=== PATIENT | male | born 1950 | race Caucasian/White ===

== ENCOUNTER 2025-02-09 22:34 | Inpatient (IN) | payer OTHER, SELFPAY ==
[2025-02-09 20:31] VITALS: BP 145/95
[2025-02-09 20:33] VITALS: BP 145/95
[2025-02-09 20:47] VITALS: BP 146/91
[2025-02-09 20:51] LABS: Hematocrit 43.5 % (39.0-52.0); Hemoglobin 15.3 g/dL (13.0-18.0); Mean Corp Hgb Conc. 35.2 g/dL (33.0-37.0); Mean Corpuscular Volume 87.7 fL (80.0-94.0); Nucleated Red Blood Cells % 0 % (-); Platelet Count 473 10^3/uL (130-400); Red Cell Dist. Width 12.9 % (11.5-14.5)
--- NOTE | 2025-02-09 20:52 | ED.GENMED ---
History of Present Illness
General
Chief Complaint: Breathing Problem
Time Seen by Provider: 02/09/25 20:32
History of Present Illness
History of Present Illness:
75-year-old male with history of CAD status post CABG in 2012, hypertension, and vfa-czbbfcp-kcvuhwimg diabetes presents to the emergency department for evaluation of increasing shortness of breath and coughing for the past week. He saw his primary
care team at [facility] on Monday and was given prescriptions for azithromycin and cefpodoxime and was scheduled for an outpatient ultrasound next week. Feels that his symptoms are improving however today he has had numerous bouts of forceful coughing
or difficulty breathing with resultant syncopal events. According to his he has had a witnessed syncope on 4 occasions today. He has no primary history of pulmonary disease.
Past History
Past History
ED Past Medical History: HTN and NIDDM
ED Past Surgical History: None
Social History
Tobacco: Non-smoker
Alcohol: Occasional
Drug: None
Personal:
Living: with family
Employment: Employed
Family History
Family History: Other (Noncontributory)
Review of Systems
Review of Systems
Allergies reviewed?: Yes
All Other Systems: ROS reviewed and negative except as documented in HPI and ROS
Phy Exam
Physical Exam
Physical Exam:
GEN: Acute respiratory distress
HEENT: Oral mucosa moist, no scleral icterus, oropharynx clear
Cardiac: Mildly tachycardic, regular
Lung: Tachypneic with accessory muscle use, audible stridor, lungs globally clear otherwise
MSK: No gross deformity or injuries
Skin: Good color, no pallor or jaundice, no rashes
Neuro: AO x3, moves all extremities freely
Psych: Calm, cooperative
Scores
Heart Failure Risk
Heart Failure Risk Score: Not Applicable
Course
Orders/Labs/Results
Orders:
Orders
02/09/25 20:36
Electrocardiogram (*1) Urgent
Reason for Study: Other
Other Reason for Exam: Respiratory Distress
EKG- Treatment ONCE
02/09/25 20:40
Complete Blood Count/With Diff Urgent
Comprehensive Metabolic Panel Urgent
Troponin I Urgent
02/09/25 20:51
Racepinephrine [Vaponefrin Nebs] 0.5 ml INH R NOW STA
CR Chest - 2 Views Urgent
Comment:
Reason For Exam: SOB
02/09/25 22:19
Admit/Transfer Patient As Directed
Co-Sign Provider:
Level of Care: Inpatient admission
Assign to:: Telemetry
Physician / Group: Bird
Diagnosis: Large pleural effusion
Reason for Telemetry: Syncope
Date to Stop Telemetry: 02/11/25
Time to Stop Telemetry: 11:00
Reason for Hospitalization: shortness of breath
Expected length of stay greater than two midnights?: Yes
ELOS- Estimated Length of Stay in days: 2
I certify the patient meets the requirements for IP care: Yes
PRN Pain Medication Management As Directed
May give lesser potent ordered pain med per pt: Yes
preference::
Protocol:: Medication orders for pain may be administered in a
manner that supports deferring to patient preference
when the pt is:
- Requesting an ordered lesser potent pain medication.
Least to most potent pain medications are defined
as: acetaminophen < NSAID < tramadol < opioids
(morphine, oxycodone, hydromorphone).
- Requesting a lesser dose of the same medication IF
ORDERED.
- Requesting a less intrusive route of administration
if both routes are prescribed by the provider (PO <
IV).
02/09/25 22:21
Code Status As Directed
Resuscitation Status: Full Code
02/11/25 11:00
DC Protocol for Telemetry ONCE
Abnormal Lab Results
02/09/25
20:40
WBC 13.1 H 10^3/uL
(4.8-10.8)
Plt Count 473 H 10^3/uL
(130-400)
MPV 10.7 H fL
(7.4-10.4)
Abs Immat Gran (auto) 0.1 H 10^3/uL
(0-0.05)
Absolute Neuts (auto) 9.7 H 10^3/uL
(1.4-6.5)
Absolute Monos (auto) 1.9 H 10^3/uL
(0.1-0.6)
Immature Gran % 1.1 H %
(0-0.5)
Lymphocytes % 9.3 L %
(20.5-51.1)
Monocytes % 14.6 H %
(1.7-9.3)
Sodium 129 L mmol/L
(135-145)
Chloride 96 L mmol/L
(98-107)
BUN 28 H mg/dl
(9-20)
Glucose 215 H mg/dl
(70-99)
02/09/25 20:40
02/09/25 20:40
Vital Signs
Initial and Last Documented VS:
Initial Vital Signs
Temp Pulse Resp BP Pulse Ox
98.2 F 98 20 145/95 96
02/09/25 20:31 02/09/25 20:31 02/09/25 20:31 02/09/25 20:31 02/09/25 20:31
Last Documented Vital Signs
Temp Pulse Resp BP Pulse Ox
98.2 F 90 26 100/63 96
02/09/25 20:31 02/09/25 23:15 02/09/25 23:15 02/09/25 23:00 02/09/25 23:15
MDM/Problems Addressed
MDM/Problems Addressed:
Initially with the presence of audible stridor the patient was given racemic epinephrine nebulizer with provided essentially no benefit. Chest x-ray ultimately revealed large left pleural effusion with mediastinal shift. Imaging was reviewed with
interventional radiology on-call and the plan will be to perform thoracentesis first thing tomorrow morning. Patient is not hypoxic but did benefit from supplemental oxygen on a symptomatic basis. Hemodynamically stable. Will be admitted to the
hospitalist service
*Pulse Oximetry
SaO2: 96
Oxygen Mode of Delivery: Room air
Patient hypoxic: no
*Critical Care Note
Total Time (30-74mins, 75-104mins- exclusive of procedures): Not Applicable
ED Attending Note
-
Portions of this chart may have been created with voice recognition software.� Occasional wrong word or��sound alike� substitutions may have occurred due to the inherent limitations of voice recognition software.
Discharge Plan
Departure
Patient Disposition: Admit
Date of Disposition: 02/09/25
Time of Disposition: 21:42
Admit to: Med/Surg
Presentation/result/management discussed w/ accepting MD/DO: Hospitalist
Discharge Problem:
Pleural effusion on left
Interventions
Interventions:
*Risk Screen - Suicide Last Done: 02/09/25 20:37
*General Assessment Last Done: 02/09/25 20:38
*Neglect/Abuse Screening Last Done: 02/09/25 20:37
*ED- Fall Risk Assessment Last Done: 02/09/25 20:37
*ED COVID-19 Vaccine History Last Done: 02/09/25 20:37
*ED Influenza Vaccine History Last Done: 02/09/25 20:37
ED- Cardiac Assessment Last Done: 02/09/25 20:43
ED- Pulmonary Assessment Last Done: 02/09/25 20:43
[2025-02-09] MEDS: VAPONEFRIN NEBS 0.5 ML INH (20:55)
[2025-02-09 21:00] VITALS: BP 123/78
[2025-02-09 21:07] LABS: ALT (SGPT) 42 U/L (0-50); AST (SGOT) 35 U/L (17-59); Albumin 4.0 g/dl (3.5-5.0); Alkaline Phosphatase 57 U/L (38-126); Blood Urea Nitrogen 28 mg/dl (9-20); Calcium 9.6 mg/dl (8.4-10.2); Carbon Dioxide 22 mmol/L (22-30); Chloride 96 mmol/L (98-107); Estimated Creatinine Clearance 65 ml/min; Glucose 215 mg/dl (70-99); Potassium 4.0 mmol/L (3.5-5.1); Sodium 129 mmol/L (135-145); Total Protein 6.7 g/dl (6.3-8.2); eGFR > 60.00
[2025-02-09 21:16] LABS: Troponin I 0.029 ng/ml
[2025-02-09 22:00] VITALS: BP 111/76
--- NOTE | 2025-02-09 22:11 | HPS.HSE ---
Family Physician
-
Family Physician: Elvia Zuniga
Chief Complaint
-
Shortness of breath
History of Present Illness
This is a 75-year-old male with past medical history significant for CAD status post CABG, status post tenting, gys-hpooplq-sslbrjwiv diabetes, history of prostate cancer status post resection and XRT, history of for remote soft tissue cancer of the
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
Patient reports about 10 days of upper respiratory symptoms including a cough and cold and flulike symptoms. He did have his flu shot. He reported that he was doing well but he started progressively getting dyspneic. He reports he has cough
paroxetine which resulted in severe shortness of breath and inability to catch his breath. He is not bringing up much sputum. He has not had any fevers or chills. He denies any known sick contacts. He has no recent travels. Was seen by PMD at
the [facility] on Monday and was started on cefpodoxime and azithromycin with x-ray pending. Today he had severe shortness of breath and almost a presyncopal episode and was brought to the emergency department.
In the emergency department was afebrile, blood pressure was 120/78 with a pulse of 93 and was initially tachypneic to 37 now in the low 20s on oxygen. Oxygen saturation was initially 97% on room air. Chest x-ray shows a large left-sided pleural
effusion with almost complete whiteout. Troponin was 0.029. ECG was nonischemic. He had a white count of 13.1 hemoglobin and platelets were normal. Electrolytes notable for a sodium of 129 but otherwise unremarkable with normal BUN and
creatinine.
Medical History
Past Medical History
Past Medical History: Reports CAD (CAD status post triple-vessel CABG in 2012, history of stent placement), Cancer (History of prostate cancer status post XRT and resection, history of soft tissue cancer of the back in the 80s status post
resection), HTN, Hypercholesterolemia and NIDDM
Past Surgical History: Reports Cardiac (CABG) and Urological (Prostatectomy)
Social History
Tobacco: Former Smoker
Alcohol: None
Drug: None
Personal:
Living: With Family
Family History
Family History: Not pertinent
Allergies / Home Medications
Allergies reflects when Allergies were last updated in [facility].
Home Medications with original date entered in [facility]
Allergy/Medication List:
Allergies
Allergy/AdvReac Type Severity Reaction Status Date / Time
metoprolol Allergy sob and Verified 02/09/25 20:38
chest
vibrating
Home Medications
aspirin 81 mg tablet,delayed release 81 mg PO DAILY ##1 12/27/17
coenzyme Q10 200 mg capsule (Co Q-10) 200 mg PO DAILY 12/27/17
nitroglycerin 0.4 mg sublingual tablet 0.4 mg sublingual [id number] PRN chest pain ##0 12/27/17
omega 5-ztz-env-fish oil 300 mg-1,000 mg capsule (Fish Oil) 1 ea PO DAILY 12/27/17
potassium chloride 10 mEq tablet,extended release 40 meq PO DAILY 09/13/19
amlodipine 10 mg tablet 5 mg PO DAILY 01/03/23
losartan 100 mg tablet 100 mg PO DAILY 01/03/23
magnesium 250 mg tablet 250 mg PO DAILY 01/03/23
omeprazole 40 mg capsule,delayed release 40 mg PO BID 01/03/23
oxybutynin chloride 10 mg tablet,extended release 24 hr 10 mg PO BID 01/03/23
travoprost 0.004 % eye drops 1 drp BOTH EYES QPM 01/03/23
azithromycin 250 mg tablet 250 mg PO DAILY 02/09/25
cefpodoxime 200 mg tablet 200 mg PO BID 02/09/25
hydrochlorothiazide 25 mg tablet 25 mg PO DAILY 02/09/25
metformin 500 mg tablet,extended release 24hr (osmotic) 500 mg PO BID 02/09/25
rosuvastatin 5 mg tablet 2.5 mg PO DAILY 02/09/25
Review of Systems
-
Constitutional: Denies Fever or Chills
EENT: Reports No Symptoms
Respiratory: Reports Cough and Trouble Breathing
Cardiac: Denies Chest Pain, Diaphoresis or Palpitations
Abdomen/GI: Reports No Symptoms
: Reports No Symptoms
Musculoskeletal: Denies Edema
Skin: Reports No Symptoms
Neurological: Reports No Symptoms
Endocrine: Reports No Symptoms
Hematologic/Lymphatic: Reports No Symptoms
Psych: Reports No Symptoms
Physical Exam
Vital Signs
Vital Signs
Temp Pulse Resp BP Pulse Ox
98.2 F 93 37 123/78 97
02/09/25 20:31 02/09/25 21:30 02/09/25 21:30 02/09/25 21:00 02/09/25 21:37
Physical Exam
General: Well Developed, Well Nourished and No Apparent Distress
HEENT: NormoCephalic, Moist mucous membranes and Atraumatic
Respiratory: Non Labored Respirations and Decreased Breath Sounds
Cardiac: S1/S2 and Regular Rhythm; No Murmur or Rub
GI: Soft, Non Tender, Non Distended and Normal Bowel Sounds; No Organomegaly
Rectal: Deferred by Provider
Genito-urinary: Deferred by me
Musculoskeletal: No Clubbing, No Cyanosis and No Edema
Skin: No Rash
Neuro: AO x 3 and Nonfocal/grossly intact
Hematologic/Lymphatic: No Lymphadenopathy
Laboratory Results
-
02/09/25 20:40
02/09/25 20:40
Laboratory Results
Total Bilirubin 0.9 mg/dl (0.2-1.3) 02/09/25 20:40
AST 35 U/L (17-59) 02/09/25 20:40
ALT 42 U/L (0-50) 02/09/25 20:40
Alkaline Phosphatase 57 U/L (38-126) 02/09/25 20:40
Troponin I 0.029 ng/ml 02/09/25 20:40
Data Reviewed
-
Diagnostic Radiology: Image Personally Visualized and interpreted and Report Reviewed by me
Lab Data: Labs Reviewed by me
Old Records: Reviewed
Impression/Plan
-
IMPRESSION:
75-year-old with past medical history of CAD status post CABG, no history of CHF or liver disease presents to the emergency department with worsening shortness of breath in the setting of her recent cough and upper respiratory symptoms and found to
have a large left sided pleural effusion with light midline shift. He is hemodynamically stable and afebrile. Does have leukocytosis. He is maintaining oxygen saturation of 98% without markedly increased work of breathing. Sodium 129. Troponin
is 0.029. Patient is without any chest pain and shows no other signs of volume overload. No consolidation on the right lung.
PLAN:
Left-sided pleural effusion -shortness of breath likely explained by this effusion which could be parapneumonic versus malignant or transudative.
-Admit to telemetry for now
-Continue oxygen supplementation
-Will continue antibiotics for now
-IR consulted and notified, left paracentesis tomorrow morning
-Pulmonary consultation
-Will continue with supportive measures including antitussives and antiemetics.
Hyponatremia - Appears euvolemic at this time.
- paracentesis as above
- fluid restriction
- urine studies
CAD -no chest pain, troponin 0.029. Complains of some presyncopal episodes with cough paroxysms. No loss of consciousness.
�Telemetry
� Continue aspirin, statin,
� Continue his usual BP meds including amlodipine and hydrochlorothiazide.
Diabetes
- Continue his metformin twice daily
� Sliding scale insulin
DVT prophylaxis�Lovenox subcu
CODE STATUS�full code
[2025-02-09 23:00] VITALS: BP 100/63
[2025-02-10] VITALS (12 sets, daily range): BP systolic 76–163; BP diastolic 72–97; PULSE 77–83; BMI 28.5
--- NOTE | 2025-02-10 02:38 | PTCARENOTE ---
Pt transported from ED to 3W via stretcher. Pt standby from stretcher to bed. Pt AAOX3, vitals WNL, pt placed on TELE #[id number], on 2L of O2. Oriented to room and call bear within reach.
[2025-02-10] MEDS: STERILE WATER FOR INJECTION 10 ML IV (05:01)
[2025-02-10] MEDS: ROCEPHIN 1000 MG IV (05:01)
[2025-02-10 07:06] LABS: Hematocrit 40.8 % (39.0-52.0); Hemoglobin 14.8 g/dL (13.0-18.0); Mean Corp Hgb Conc. 36.3 g/dL (33.0-37.0); Mean Corpuscular Volume 85.2 fL (80.0-94.0); Platelet Count 483 10^3/uL (130-400); Red Cell Dist. Width 12.7 % (11.5-14.5)
[2025-02-10 07:10] LABS: Blood Urea Nitrogen 26 mg/dl (9-20); Calcium 9.8 mg/dl (8.4-10.2); Carbon Dioxide 20 mmol/L (22-30); Chloride 101 mmol/L (98-107); Estimated Creatinine Clearance 63 ml/min; Glucose 178 mg/dl (70-99); LDH 188 U/L (120-246); Magnesium 2.2 mg/dl (1.6-2.3); Potassium 4.0 mmol/L (3.5-5.1); Sodium 128 mmol/L (135-145); Total Protein 6.6 g/dl (6.3-8.2); eGFR > 60.00
[2025-02-10 08:11] LABS: Glucose - Point of Care 166 mg/dl (70-99)
[2025-02-10] MEDS: NOVOLOG FLEXPEN-LOW RESISTANCE 1 UNITS SC ×3 (09:00→17:12)
[2025-02-10] MEDS: ORETIC 25 MG PO (09:01)
[2025-02-10] MEDS: ZITHROMAX 250 MG PO (09:11)
[2025-02-10] MEDS: CRESTOR 2.5 MG PO (09:11)
[2025-02-10] MEDS: KCL 40 MEQ PO (09:11)
[2025-02-10] MEDS: GLUCOPHAGE XR EXTENDED RELEASE 500 MG PO ×2 (09:12→17:13)
[2025-02-10] MEDS: ASPIR LOW (ENTERIC COATED) 81 MG PO (09:12)
[2025-02-10] MEDS: COZAAR 100 MG PO (09:12)
[2025-02-10] MEDS: PROTONIX 40 MG PO ×2 (09:12→20:52)
[2025-02-10] MEDS: NORVASC 5 MG PO (09:12)
--- NOTE | 2025-02-10 10:08 | CON.PUL ---
Consultation
Consultation Request
Date/Time Consultation Requested: 02/10/25
Date/Time Consultation Performed: 02/10/25
Performing Provider: Forrest
Reason for Consultation: SOB
Medical History
-
History of Present Illness:
This is a 75-year-old male with past medical history significant for CAD status post CABG, status post tenting, oex-tbojmpc-phonpwqdo diabetes, history of prostate cancer status post resection and XRT, history of for remote soft tissue cancer of the
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
In the emergency department was afebrile, blood pressure was 120/78 with a pulse of 93 and was initially tachypneic to 37 now in the low 20s on oxygen. Oxygen saturation was initially 97% on room air. Chest x-ray shows a large left-sided pleural
effusion with almost complete whiteout. Troponin was 0.029. ECG was nonischemic. He had a white count of 13.1 hemoglobin and platelets were normal. Electrolytes notable for a sodium of 129 but otherwise unremarkable with normal BUN and
creatinine.
Denies prior history of lung disease, was a former smoker overall 10 years, quit in the 1970s. He was exposed to agent orange in the past. He denies any family history of lung disease.
Past Medical History
Past Medical History: Other (see list below)
Social History
Tobacco: Former Smoker
Alcohol: None
Drug: None
Allergies / Home Medications
Allergies
Allergy/AdvReac Type Severity Reaction Status Date / Time
metoprolol Allergy sob and Verified 02/09/25 20:38
chest
vibrating
Home Medications
�Medication �Instructions �Recorded �Confirmed �Last Taken �Type
aspirin 81 mg tablet,delayed 81 mg PO DAILY ##1 12/27/17 02/09/25 01/03/23 06:00 Rx
release
coenzyme Q10 200 mg capsule (Co 200 mg PO DAILY 12/27/17 02/09/25 01/03/23 06:00 History
Q-10)
nitroglycerin 0.4 mg sublingual 0.4 mg sublingual [id number] PRN 12/27/17 02/09/25 02/09/25 Rx
tablet chest pain ##0
omega 7-adr-trp-fish oil 300 1 ea PO DAILY 12/27/17 02/09/25 01/03/23 06:00 History
mg-1,000 mg capsule (Fish Oil)
potassium chloride 10 mEq 40 meq PO DAILY 09/13/19 02/09/25 01/03/23 06:00 History
tablet,extended release
amlodipine 10 mg tablet 5 mg PO DAILY 01/03/23 02/09/25 01/03/23 06:00 History
losartan 100 mg tablet 100 mg PO DAILY 01/03/23 02/09/25 01/03/23 06:00 History
magnesium 250 mg tablet 250 mg PO DAILY 01/03/23 02/09/25 01/03/23 06:00 History
omeprazole 40 mg capsule,delayed 40 mg PO BID 01/03/23 02/09/25 01/03/23 06:00 History
release
oxybutynin chloride 10 mg 10 mg PO BID 01/03/23 02/09/25 01/02/23 22:00 History
tablet,extended release 24 hr
travoprost 0.004 % eye drops 1 drp BOTH EYES QPM 01/03/23 02/09/25 01/02/23 22:00 History
azithromycin 250 mg tablet 250 mg PO DAILY 02/09/25 02/09/25 Unknown History
cefpodoxime 200 mg tablet 200 mg PO BID 02/09/25 02/09/25 Unknown History
hydrochlorothiazide 25 mg tablet 25 mg PO DAILY 02/09/25 02/09/25 Unknown History
metformin 500 mg tablet,extended 500 mg PO BID 02/09/25 02/09/25 Unknown History
release 24hr (osmotic)
rosuvastatin 5 mg tablet 2.5 mg PO DAILY 02/09/25 02/09/25 Unknown History
Review of Systems
-
History Source: Patient
All other systems: Negative unless noted
Vitals / Labs / Diagnostic Testing
Vital Signs
Temp Pulse Resp BP Pulse Ox
98.0 F 87 19 116/80 97
02/10/25 07:00 02/10/25 09:01 02/10/25 07:00 02/10/25 09:12 02/10/25 07:00
Lab Data
02/10/25 06:19
02/10/25 06:19
Diagnostic Testing:
Physical Exam
-
HEENT: Normocephalic, Anicteric and Moist Mucous Membranes
Cardiovascular: S1/S2 and Regular Rhythm
Respiratory: Clear (decreased on L) and Non-Labored Respirations
GI: Soft, Non Distended and Non Tender
Neurology: Awake, Alert, Oriented and No Motor Deficits
Skin: Warm, Dry and Good Color
General: Comfortable and Other (NAD)
Assessment
-
This is a 75-year-old male with past medical history significant for CAD status post CABG, status post tenting, wzd-lfdcvoq-tekognfcq diabetes, history of prostate cancer status post resection and XRT, history of for remote soft tissue cancer of the
back status post resection in the , hyperlipidemia, GERD, TIA who presents to the emergency department with worsening shortness of breath.
Chest x-ray shows a large left-sided pleural effusion with almost complete whiteout. Denies prior history of lung disease, was a former smoker overall 10 years, quit in the 1970s. He was exposed to agent orange in the past. We are consulted for
evaluation
New left sided pleural effusion with near-complete atelectasis status post thoracentesis 02/10/2025
SOB
Hyponatremia
Presyncopal episode
Leukocytosis, mild
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
CAD status post triple-vessel CABG in 2012, history of stent placement
History of prostate cancer status post XRT and resection/Prostatectomy
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
HTN
Hypercholesterolemia
NIDDM
Former smoker
Kidney stones
Plan
Currently saturating greater than 90% on room air
No known prior history of home O2 use
Denies prior history of lung disease, was a former smoker but overall 10 years, quit in the 1970s
Had exposure to agent orange in the past, denies family history of lung disease
CXR/CT obtained indicating near complete whiteout left side, pleural effusion which is new
Other imaging reviewed in past did not demonstrate effusion present
Status post thoracentesis, awaiting chemistry, culture and cytology results
Denies any prodrome symptoms of infection including fever chills, malaise at home
He does have occasional difficulty with swallowing, was placed on PPI for reflux
Will obtain speech evaluation to rule out aspiration
Prior ECHO results are reviewed indicating stable findings
proBNP on admission negative
Smoking history noted--distant past
Would not be considered high risk for underlying lung cancer, cytology is sent
Has a history of LEXY on CPAP, can resume while inpatient
Will need outpatient pulmonary evaluation in our office for PFTs and 6MWT
Reviewed with patient
We will follow
Diagnostic Data
Chest X-Ray: 02/09/25- Near complete opacification of the left hemithorax, which appears to be secondary to large volume pleural fluid. A small portion of the left upper lobe remains aerated. No pneumothorax. Sternotomy wires and a loop recorder in
the left chest wall. The cardiac silhouette is partially obscured. Mild mediastinal shift to the right. Chronic degenerative changes of the spine.
09/03/15- No acute process.
CT Scan:
Echo: 05/16/16- Normal left ventricular size and systolic function. Estimated ejection fraction is 55-60%. No significant valvular disease. No prior study available for comparison.
[facility] 01/03/23- 1. The left internal mammary graft to the mid LAD is widely patent with excellent runoff. 2. The saphenous vein graft to OM 2 and OM 3 is widely patent with excellent runoff at both touchdown sites.
PFT's: Jose 2013- FVC is 3.64L or 81% of predicted. FEV1 is 2.90L or 86% of predicted. FEV1/FVC of 80%. FEF 25-75 percent is 2.85L/s or 105% of predicted --normal
Reports and relevant images were personally reviewed.
Total time spent on this consultation __55__ minutes which includes review of history, physical exam, medications, laboratory data, personal review of imaging, extensive review of outpatient records, discussion with care team and respiratory therapy.
--- NOTE | 2025-02-10 11:16 | CM ---
Patient seen at bedside on . Patient states that he lives with his in a 2 story home. Patient has a CPAP and no other DME. Patient uses the [facility] in [place] on if short term perscription needed. Patient PCP is [place] Doctor "Lisbeth"Efrain and he plans for discharge home with no needs. Patient currently on O2 and for procedure today. CM will continue to follow for discharge planning needs.
Plan; home with no needs.
[2025-02-10 12:10] LABS: Glucose - Point of Care 154 mg/dl (70-99)
--- NOTE | 2025-02-10 12:25 | W.PN.HOSP.TC ---
Today's Communication/Plan
-
Continue with antibiotics
Left diagnostic and therapeutic thoracentesis
Pulmonary consult
Discontinue fluid restriction
Discontinue hydrochlorothiazide
Assessment / Plan
Assessment / Plan
IMPRESSION:
75-year-old with past medical history of CAD status post CABG, no history of CHF or liver disease presents to the emergency department with worsening shortness of breath in the setting of her recent cough and upper respiratory symptoms and found to
have a large left sided pleural effusion with light midline shift. He is hemodynamically stable and afebrile. Does have leukocytosis. He is maintaining oxygen saturation of 98% without markedly increased work of breathing. Sodium 129. Troponin
is 0.029. Patient is without any chest pain and shows no other signs of volume overload. No consolidation on the right lung.
PLAN:
Left-sided pleural effusion -shortness of breath likely explained by this effusion which could be parapneumonic versus malignant or transudative.
-Continue oxygen supplementation
-Will continue antibiotics for now
-IR consulted and notified, left paracentesis planned for today
-Pulmonary consultation
-Will continue with supportive measures including antitussives and antiemetics.
Hyponatremia - Appears euvolemic at this time.
- Urine studies with sodium of less than 5 suggestive of prerenal stimuli. No liver or chronic kidney disease.
- Encourage oral intake and follow sodium closely.
- Discontinue hydrochlorothiazide
CAD -no chest pain, troponin 0.029. Complains of some presyncopal episodes with cough paroxysms. No loss of consciousness.
�Telemetry
� Continue aspirin, statin,
� Continue his usual BP meds including amlodipine and hydrochlorothiazide.
Diabetes
- Continue his metformin twice daily
� Sliding scale insulin
DVT prophylaxis�Lovenox subcu
CODE STATUS�full code
Total time spent on today's encounter was 52 minutes which included time spent in counseling the patient/family regarding diagnosis and treatment plan as listed above, goals of care, and symptom management. Case was discussed with nursing staff,
specialists, and care coordinators/case management. All labs and imaging personally reviewed by me. Remainder the time spent in detailed review of previous records, lab data, imaging, and other medical provider documentation.
Anticipated Discharge: > 48 hours
Subjective/Interval History
-
Date of Service: February 10, 2025
Continued symptom of shortness of breath. No chest pain. No nausea vomiting.
Apart from shortness of breath he says he is feeling the best in general in a week. He was on antibiotics prior to coming to the hospital for respiratory symptoms and clinical diagnosis of possible pneumonia.
He denies lower extremity swelling. Denies history of CHF.
Objective Data
-
Labs:
Laboratory Results
02/10/25
06:19
WBC 11.9 H
Hgb 14.8
Hct 40.8
Plt Count 483 H
Sodium 128 L
Potassium 4.0
Chloride 101
Carbon Dioxide 20 L
BUN 26 H
Creatinine 1.0
Glucose 178 H
Calcium 9.8
Vital Signs:
Vital Signs
Temp Pulse Resp BP Pulse Ox
97.9 F 88 18 126/83 96
02/10/25 11:00 02/10/25 11:00 02/10/25 11:00 02/10/25 11:00 02/10/25 11:00
I&O
02/09/25 02/10/25 02/11/25
06:59 06:59 06:59
Intake Total 480 / 480
Output Total 200 / 200
Balance 280 / 280
Physical Exam
-
General: Negative Comfortable (Mildly tachypneic with conversation)
Respiratory: Non Labored Respirations and Decreased Breath Sounds (Decreased breath sounds in whole of left lung); Negative Wheezes or Accessory Resp Muscle Use
Cardiac: Regular Rhythm and S1/S2
GI: Soft and Nontender
Musculoskeletal: No Edema
Neuro: AO x 3
Psych: Calm
Data Reviewed
-
Labs: Labs Reviewed by me
[2025-02-10 13:19] LABS: Glucose - Point of Care 141 mg/dl (70-99)
--- NOTE | 2025-02-10 13:38 | PTCARENOTE ---
Pt sitting on side of the bed w/ assistance by me. PT began to cough and immediately turned purple and began to pass out falling forward out of the bed. This RN slowly lowered pt to the floor, didn't hit head. Staff in to assist. Pt laying flat,
breathing, quickly coming to and able to talk w/ staff. Tachypneic. 97% on 2L NC. NSR on monitor. EKG obtained, sent to Dr Cuba. Rapid called, but quickly disassemble as pt recovered quickly. BS and VSS wnl. Dr Cuba cleared pt to go to IR as
planned. IR called and updated on most recent events, instructed not to get pt up off stretcher. Will continue to monitor and watch closely.
--- NOTE | 2025-02-10 14:54 | PTCARENOTE ---
Pt back from IR s/p L thoracentesis, 1700mL removed. Bandaide intact. Now on RA sating 95 %. Repiratory status now unlabored at rest. Will conitnue to monitor.
--- NOTE | 2025-02-10 15:30 | PTOTSP ---
Speech Language Pathology
Pt seen for clinical bedside swallow evaluation. P.O. trials of puree, regular solids, and thin liquids provided. Adequate mastication, bolus formation, and A-P transit noted with no oral residue. No overt signs of aspiration. Pt had reported
occasional difficulty swallowing to pulmonology. Questioned pt about this. He stated that dry things, such as breads and tough meats would result in globus sensation in mid chest. [facility]. Reflux meds were
started at some point, which significantly improved problem. He denied any hx of PNA.
Recommend:
(1) Continue regular solids/thin liquids
(2) General aspiration precautions
(3) Meds as tolerated
(4) MANAGER OF HUMAN RESOURCES to sign off. Please reconsult as indicated
[2025-02-10 15:47] LABS: Body Fluid Second Tech DW
[2025-02-10 16:35] LABS: Glucose - Point of Care 191 mg/dl (70-99)
[2025-02-10] MEDS: XALATAN OPHTHALMIC SOLUTION 1 DROP BOTH EYES (17:12)
[2025-02-10] MEDS: LOVENOX 40 MG SC (17:13)
[2025-02-10] MEDS: DITROPAN 5 MG PO ×2 (18:20→20:53)
[2025-02-10 22:06] LABS: Glucose - Point of Care 137 mg/dl (70-99)
[2025-02-10] MEDS: ROBITUSSIN DM 5 ML PO (22:57)
[2025-02-11] VITALS (8 sets, daily range): BP systolic 83–134; BP diastolic 66–87
[2025-02-11] MEDS: ROCEPHIN 1000 MG IV (05:05)
[2025-02-11] MEDS: STERILE WATER FOR INJECTION 10 ML IV (05:05)
[2025-02-11] MEDS: ROBITUSSIN DM 5 ML PO ×3 (05:15→20:16)
[2025-02-11 06:45] LABS: Hematocrit 40.1 % (39.0-52.0); Hemoglobin 14.1 g/dL (13.0-18.0); Mean Corp Hgb Conc. 35.2 g/dL (33.0-37.0); Mean Corpuscular Volume 85.1 fL (80.0-94.0); Platelet Count 402 10^3/uL (130-400); Red Cell Dist. Width 12.7 % (11.5-14.5)
[2025-02-11 07:16] LABS: Blood Urea Nitrogen 26 mg/dl (9-20); Calcium 9.3 mg/dl (8.4-10.2); Carbon Dioxide 26 mmol/L (22-30); Chloride 103 mmol/L (98-107); Estimated Creatinine Clearance 52 ml/min; Glucose 168 mg/dl (70-99); Potassium 4.0 mmol/L (3.5-5.1); Sodium 135 mmol/L (135-145); eGFR > 60.00
[2025-02-11 08:00] LABS: Glucose - Point of Care 157 mg/dl (70-99)
[2025-02-11] MEDS: NOVOLOG FLEXPEN-LOW RESISTANCE 1 UNITS SC (09:00)
[2025-02-11] MEDS: CRESTOR 2.5 MG PO (09:01)
[2025-02-11] MEDS: COZAAR 100 MG PO (09:03)
[2025-02-11] MEDS: DITROPAN 5 MG PO ×4 (09:03→21:33)
[2025-02-11] MEDS: PROTONIX 40 MG PO ×2 (09:03→20:16)
[2025-02-11] MEDS: KCL 40 MEQ PO (09:03)
[2025-02-11] MEDS: ASPIR LOW (ENTERIC COATED) 81 MG PO (09:03)
[2025-02-11] MEDS: NORVASC 5 MG PO (09:04)
[2025-02-11] MEDS: GLUCOPHAGE XR EXTENDED RELEASE 500 MG PO ×2 (09:04→17:45)
[2025-02-11] MEDS: ZITHROMAX 250 MG PO (09:04)
--- NOTE | 2025-02-11 09:24 | W.PN.PUL3 ---
Today's Communication / Plan
-
Initial chemistry suggesting parapneumonic effusion, culture negative/ cytology still pending
Given continued shortness of breath, may need therapeutic tap with plan for CT imaging when less pleural effusion is present, still has moderate amount
Can recent fluid cultures as well
Continue antibiotics for full course, generally 10 to 14 days
Reviewed plan with patient and family
Assessment
-
This is a 75-year-old male with past medical history significant for CAD status post CABG, status post tenting, [id number]-hbufzkoek diabetes, history of prostate cancer status post resection and XRT, history of for remote soft tissue cancer of the
back status post resection in the , hyperlipidemia, GERD, TIA who presents to the emergency department with worsening shortness of breath.
Chest x-ray shows a large left-sided pleural effusion with almost complete whiteout. Denies prior history of lung disease, was a former smoker overall 10 years, quit in the . He was exposed to agent orange in the past. We are consulted for
evaluation
New left sided pleural effusion with near-complete atelectasis status post thoracentesis 02/10/2025
Suspect parapneumonic effusion
SOB
Hyponatremia
Presyncopal episode
Leukocytosis, mild
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
CAD status post triple-vessel CABG in 2012, history of stent placement
History of prostate cancer status post XRT and resection/Prostatectomy
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
HTN
Hypercholesterolemia
NIDDM
Former smoker
Kidney stones
Plan
Currently saturating greater than 90% on room air
No known prior history of home O2 use
Denies prior history of lung disease, was a former smoker but overall 10 years, quit in the
Had exposure to agent orange in the past, denies family history of lung disease
CXR/CT obtained indicating near complete whiteout left side, pleural effusion which is new
Other imaging reviewed in past did not demonstrate effusion present
Status post thoracentesis, awaiting chemistry, culture and cytology results
Chemistry reviewed indicating exudate, likely parapneumonic, culture results thus far negative
Cytology still pending
Denies any prodrome symptoms of infection including fever chills, malaise at home
Still has moderate effusion remaining and short of breath, may consider therapeutic thoracentesis with plan for CT imaging
He does have occasional difficulty with swallowing, was placed on PPI for reflux
Will obtain speech evaluation to rule out aspiration--negative
Prior ECHO results are reviewed indicating stable findings
proBNP on admission negative
Smoking history noted--distant past
Would not be considered high risk for underlying lung cancer, cytology is sent
Has a history of LEXY on CPAP, can resume while inpatient
Will need outpatient pulmonary evaluation in our office for PFTs and 6MWT
Reviewed with patient
Diagnostic Data
Chest X-Ray: 02/09/25- Near complete opacification of the left hemithorax, which appears to be secondary to large volume pleural fluid. A small portion of the left upper lobe remains aerated. No pneumothorax. Sternotomy wires and a loop recorder in
the left chest wall. The cardiac silhouette is partially obscured. Mild mediastinal shift to the right. Chronic degenerative changes of the spine.
09/03/15- No acute process.
CT Scan:
Echo: 05/16/16- Normal left ventricular size and systolic function. Estimated ejection fraction is 55-60%. No significant valvular disease. No prior study available for comparison.
[facility] 01/03/23- 1. The left internal mammary graft to the mid LAD is widely patent with excellent runoff. 2. The saphenous vein graft to OM 2 and OM 3 is widely patent with excellent runoff at both touchdown sites.
PFT's: Jose 2013- FVC is 3.64L or 81% of predicted. FEV1 is 2.90L or 86% of predicted. FEV1/FVC of 80%. FEF 25-75 percent is 2.85L/s or 105% of predicted --normal
Reports and relevant images were personally reviewed.
Total time spent on this consultation __50__ minutes which includes review of history, physical exam, medications, laboratory data, personal review of imaging, extensive review of outpatient records, discussion with care team and respiratory therapy.
Subjective Data
-
Date of Service:
Date of Service: February 11, 2025
Chief Complaint: Pulmonary Follow Up
Subjective:
Remains SOB, but otherwise no new complaints
Family at bedside
Objective Data
Data Reviewed
Vital Signs / I&O / Oxygen:
Vital Signs
Temp Pulse Resp BP Pulse Ox
97.8 F 71 19 133/60 96
02/11/25 07:43 02/11/25 09:04 02/11/25 07:43 02/11/25 09:04 02/11/25 07:43
Intake and Output
02/10/25 02/11/25 02/12/25
06:59 06:59 06:59
Intake Total 480 / 480 780 / 780
Output Total 200 / 200
Balance 280 / 280 780 / 780
SaO2 96
Nasal Cannula flow liters per 2
minute
Physical Exam
General: Comfortable and Other (NAD)
HEENT: Normocephalic, Anicteric and Moist Mucous Membranes
Cardiovascular: S1-S2 and Regular Rhythm
Respiratory: Clear (decreased BS) and Non-Labored Respirations
GI: Soft, Non Distended and Non Tender
Neurology: Awake, Alert, Oriented and No Motor Deficits
Skin: Warm, Dry and Good Color
Labs/Micro/Reports
Lab Data
02/11/25 06:22
02/11/25 06:22
Microbiology
02/10/25 14:18 Pleural Fluid Gram Stain - Preliminary
--- NOTE | 2025-02-11 09:45 | CM ---
Patient seen at bedside
cont on oxygen
patient stated thoracentesis yesterday
PLAN: home, CM will continue to follow for discharge planning needs.
[2025-02-11 10:06] LABS: Glycohemoglobin (HgbA1c) 7.8 % (4.0-5.9)
[2025-02-11 11:50] LABS: Glucose - Point of Care 146 mg/dl (70-99)
[2025-02-11] MEDS: NOVOLOG FLEXPEN-LOW RESISTANCE SC (12:04)
--- NOTE | 2025-02-11 12:15 | W.PN.HOSP.TC ---
Today's Communication/Plan
-
Follow fluid culture report and cytology
Wean oxygen as able
Continue with antibiotics for today and reevaluate tomorrow
Assessment / Plan
Assessment / Plan
IMPRESSION:
75-year-old with past medical history of CAD status post CABG, no history of CHF or liver disease presents to the emergency department with worsening shortness of breath in the setting of her recent cough and upper respiratory symptoms and found to
have a large left sided pleural effusion with light midline shift. He is hemodynamically stable and afebrile. Does have leukocytosis. He is maintaining oxygen saturation of 98% without markedly increased work of breathing. Sodium 129. Troponin
is 0.029. Patient is without any chest pain and shows no other signs of volume overload. No consolidation on the right lung.
PLAN:
Large left-sided pleural effusion-symptomatic with shortness of breath and acute hypoxic respiratory failure.
-Exudative in nature.
-1700 mL aspirated. Repeat chest x-ray shows still persistent left pleural effusion but improved.
-Continue oxygen supplementation
-Will continue antibiotics for now; dc if cx neg.
-Will continue with supportive measures including antitussives and antiemetics.
-Appreciate pulmonary input
Hyponatremia - Appears euvolemic at this time.
- Urine studies with sodium of less than 5 suggestive of prerenal stimuli. No liver or chronic kidney disease.
- Encouraged oral intake .
- Discontinue hydrochlorothiazide
- Now normalized
CAD -no chest pain, troponin 0.029. Complains of some presyncopal episodes with cough paroxysms. No loss of consciousness.
�Telemetry
� Continue aspirin, statin,
� Continue his usual BP meds including amlodipine and hydrochlorothiazide.
Diabetes
- Continue his metformin twice daily
� Sliding scale insulin
DVT prophylaxis�Lovenox subcu
CODE STATUS�full code
Discussed with pulmonary
Anticipated Discharge: > 48 hours
Subjective/Interval History
-
Date of Service: February 11, 2025
Feels improved but still some shortness of breath persist.
No chest pain.
No fever or chills.
Patient denies any prodrome of fevers, chills, weakness. He had a some dry cough and then started to become short of breath.
Objective Data
-
Labs:
Laboratory Results
02/11/25
06:22
WBC 9.2
Hgb 14.1
Hct 40.1
Plt Count 402 H
Sodium 135
Potassium 4.0
Chloride 103
Carbon Dioxide 26
BUN 26 H
Creatinine 1.2
Glucose 168 H
Calcium 9.3
Vital Signs:
Vital Signs
Temp Pulse Resp BP Pulse Ox
97.4 F 85 18 120/68 96
02/11/25 11:11 02/11/25 11:11 02/11/25 11:11 02/11/25 11:11 02/11/25 11:11
I&O
02/10/25 02/11/25 02/12/25
06:59 06:59 06:59
Intake Total 480 / 480 780 / 780
Output Total 200 / 200
Balance 280 / 280 780 / 780
Physical Exam
-
General: Comfortable
Respiratory: Non Labored Respirations and Decreased Breath Sounds (Left base); Negative Wheezes or Accessory Resp Muscle Use
Cardiac: Regular Rhythm and S1/S2
GI: Soft and Nontender
Musculoskeletal: No Edema
Neuro: AO x 3
Psych: Calm
Data Reviewed
-
Labs: Labs Reviewed by me and Other (fluid labs)
[2025-02-11 16:45] LABS: Glucose - Point of Care 205 mg/dl (70-99)
[2025-02-11] MEDS: LOVENOX 40 MG SC (17:44)
[2025-02-11] MEDS: NOVOLOG FLEXPEN-LOW RESISTANCE 2 UNITS SC (17:45)
[2025-02-11] MEDS: XALATAN OPHTHALMIC SOLUTION 1 DROP BOTH EYES (17:48)
[2025-02-11 21:31] LABS: Glucose - Point of Care 191 mg/dl (70-99)
[2025-02-11] MEDS: TYLENOL 650 MG PO (21:34)
[2025-02-12] MEDS: ROBITUSSIN DM 5 ML PO (02:51)
[2025-02-12] MEDS: STERILE WATER FOR INJECTION 10 ML IV (04:02)
[2025-02-12] MEDS: ROCEPHIN 1000 MG IV (04:02)
[2025-02-12 05:02] VITALS: BMI 27.0
[2025-02-12 07:22] VITALS: BP 142/81
[2025-02-12 07:35] LABS: Glucose - Point of Care 133 mg/dl (70-99)
[2025-02-12] MEDS: NOVOLOG FLEXPEN-LOW RESISTANCE SC (08:13)
[2025-02-12] MEDS: ASPIR LOW (ENTERIC COATED) 81 MG PO (08:14)
[2025-02-12] MEDS: KCL 40 MEQ PO (08:14)
[2025-02-12] MEDS: CRESTOR 2.5 MG PO (08:14)
[2025-02-12] MEDS: NORVASC 5 MG PO (08:14)
[2025-02-12] MEDS: GLUCOPHAGE XR EXTENDED RELEASE 500 MG PO (08:14)
[2025-02-12] MEDS: COZAAR 100 MG PO (08:14)
[2025-02-12] MEDS: PROTONIX 40 MG PO (08:14)
[2025-02-12] MEDS: DITROPAN 5 MG PO ×2 (08:14→12:22)
[2025-02-12] MEDS: ZITHROMAX 250 MG PO (08:14)
--- NOTE | 2025-02-12 09:27 | W.PN.PUL3 ---
Today's Communication / Plan
-
Doing well post therapeutic drainage, presumptive parapneumonic effusion
PO course of abx at discharge
Can repeat imaging as OP, CT in 4-6 weeks
Patient is considering discharge today, will let team know
Can d/c from our perspective, we will arrange short term FU
Assessment
-
This is a 75-year-old male with past medical history significant for CAD status post CABG, status post tenting, pvr-pthqful-tislcxnus diabetes, history of prostate cancer status post resection and XRT, history of for remote soft tissue cancer of the
back status post resection in the , hyperlipidemia, GERD, TIA who presents to the emergency department with worsening shortness of breath.
Chest x-ray shows a large left-sided pleural effusion with almost complete whiteout. Denies prior history of lung disease, was a former smoker overall 10 years, quit in the . He was exposed to agent orange in the past. We are consulted for
evaluation
New left sided pleural effusion with near-complete atelectasis status post thoracentesis 02/10/2025
Suspect parapneumonic effusion
SOB
Hyponatremia
Presyncopal episode
Leukocytosis, mild
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
CAD status post triple-vessel CABG in 2012, history of stent placement
History of prostate cancer status post XRT and resection/Prostatectomy
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
HTN
Hypercholesterolemia
NIDDM
Former smoker
Kidney stones
Plan
Currently saturating greater than 90% on room air
No known prior history of home O2 use
Denies prior history of lung disease, was a former smoker but overall 10 years, quit in the
Had exposure to agent orange in the past, denies family history of lung disease
CXR/CT obtained indicating near complete whiteout left side, pleural effusion which is new
Other imaging reviewed in past did not demonstrate effusion present
Status post thoracentesis, awaiting chemistry, culture and cytology results
Chemistry reviewed indicating exudate, likely parapneumonic, culture results thus far negative
Cytology still pending
Denies any prodrome symptoms of infection including fever chills, malaise at home
s/p therapeutic thora of 2L 02/11, doing well now
He does have occasional difficulty with swallowing, was placed on PPI for reflux
Speech evaluation to rule out aspiration--negative
Prior ECHO results are reviewed indicating stable findings
proBNP on admission negative
Smoking history noted--distant past
Would not be considered high risk for underlying lung cancer, cytology is sent
Has a history of LEXY on CPAP, can resume while inpatient
Will need outpatient pulmonary evaluation in our office for PFTs and 6MWT
Reviewed with patient
Discharge planning per team
Diagnostic Data
Chest X-Ray: 02/09/25- Near complete opacification of the left hemithorax, which appears to be secondary to large volume pleural fluid. A small portion of the left upper lobe remains aerated. No pneumothorax. Sternotomy wires and a loop recorder in
the left chest wall. The cardiac silhouette is partially obscured. Mild mediastinal shift to the right. Chronic degenerative changes of the spine.
09/03/15- No acute process.
CT Scan:
Echo: 05/16/16- Normal left ventricular size and systolic function. Estimated ejection fraction is 55-60%. No significant valvular disease. No prior study available for comparison.
[facility] 01/03/23- 1. The left internal mammary graft to the mid LAD is widely patent with excellent runoff. 2. The saphenous vein graft to OM 2 and OM 3 is widely patent with excellent runoff at both touchdown sites.
PFT's: Jose 2012- FVC is 3.64L or 81% of predicted. FEV1 is 2.90L or 86% of predicted. FEV1/FVC of 80%. FEF 25-75 percent is 2.85L/s or 105% of predicted --normal
Reports and relevant images were personally reviewed.
Total time spent on this consultation __50__ minutes which includes review of history, physical exam, medications, laboratory data, personal review of imaging, extensive review of outpatient records, discussion with care team and respiratory therapy.
Subjective Data
-
Date of Service:
Date of Service: February 12, 2025
Chief Complaint: Pulmonary Follow Up
Subjective:
Feeling better, stable on RA
No new complaints
Objective Data
Data Reviewed
Vital Signs / I&O / Oxygen:
Vital Signs
Temp Pulse Resp BP Pulse Ox
98.2 F 63 20 142/81 97
02/12/25 07:22 02/12/25 07:22 02/12/25 07:22 02/12/25 07:22 02/12/25 07:22
Intake and Output
02/11/25 02/12/25 02/13/25
06:59 06:59 06:59
Intake Total 780 / 780 1200 / 1200
Output Total 675 / 675
Balance 780 / 780 525 / 525
SaO2 97
Nasal Cannula flow liters per 2
minute
Physical Exam
General: Comfortable and Other (NAD)
HEENT: Normocephalic, Anicteric and Moist Mucous Membranes
Cardiovascular: S1-S2 and Regular Rhythm
Respiratory: Crackles (L base, otherwise clear) and Non-Labored Respirations
GI: Soft, Non Distended and Non Tender
Neurology: Awake, Alert, Oriented and No Motor Deficits
Skin: Warm, Dry and Good Color
Labs/Micro/Reports
Lab Data
02/11/25 06:22
02/11/25 06:22
Microbiology
02/10/25 14:18 Pleural Fluid Body Fluid Culture - Preliminary
No Growth After 18-24 Hours
02/10/25 14:18 Pleural Fluid Gram Stain - Preliminary
--- NOTE | 2025-02-12 09:39 | CM ---
Patient seen at bedside with Kg
Thoracentesis 02/11
IMPRESSION:
Status post left thoracentesis. No evidence for pneumothorax
PLAN: home, to continue to follow for VN needs
--- NOTE | 2025-02-12 11:06 | W.PN.HOSP.TC ---
Today's Communication/Plan
-
Await pulmonary recs
Check ambulatory pulse ox
Assessment / Plan
Assessment / Plan
IMPRESSION:
75-year-old with past medical history of CAD status post CABG, no history of CHF or liver disease presents to the emergency department with worsening shortness of breath in the setting of her recent cough and upper respiratory symptoms and found to
have a large left sided pleural effusion with light midline shift. He is hemodynamically stable and afebrile. Does have leukocytosis. He is maintaining oxygen saturation of 98% without markedly increased work of breathing. Sodium 129. Troponin
is 0.029. Patient is without any chest pain and shows no other signs of volume overload. No consolidation on the right lung.
PLAN:
Large left-sided pleural effusion-symptomatic with shortness of breath and acute hypoxic respiratory failure.
-Exudative in nature.
-1700 mL aspirated. Repeat chest x-ray shows still persistent left pleural effusion but improved. Repeat thoracentesis 02/11 put out 2000 mL fluid.
- Off of oxygen
- Pulmonary thinking parapneumonic several Will continue antibiotics .
-Will continue with supportive measures including antitussives and antiemetics.
-Appreciate pulmonary input
- Further chest imaging per Pulmonary
Hyponatremia - Appears euvolemic at this time.
- Urine studies with sodium of less than 5 suggestive of prerenal stimuli. No liver or chronic kidney disease.
- Encouraged oral intake .
- Discontinue hydrochlorothiazide
- Now normalized
CAD -no chest pain, troponin 0.029. Complains of some presyncopal episodes with cough paroxysms. No loss of consciousness.
�Telemetry
� Continue aspirin, statin,
� Continue his usual BP meds including amlodipine and hydrochlorothiazide.
Diabetes
- Continue his metformin twice daily
� Sliding scale insulin
DVT prophylaxis�Lovenox subcu
CODE STATUS�full code
DC home when okay from pulmonary standpoint
Anticipated Discharge: Today
Subjective/Interval History
-
Date of Service: February 12, 2025
Much improved after the second. Denies shortness of breath at rest. Not requiring oxygen at rest.
Denies any chest pain. No fever or chills.
No nausea vomiting.
Objective Data
-
Vital Signs:
Vital Signs
Temp Pulse Resp BP Pulse Ox
98.2 F 63 20 142/81 97
02/12/25 07:22 02/12/25 07:22 02/12/25 07:22 02/12/25 07:22 02/12/25 07:30
I&O
02/11/25 02/12/25 02/13/25
06:59 06:59 06:59
Intake Total 780 / 780 1200 / 1200
Output Total 675 / 675
Balance 780 / 780 525 / 525
Physical Exam
-
General: No Apparent Distress
Respiratory: Non Labored Respirations and Decreased Breath Sounds (Slightly decreased breath sounds at the left base); Negative Accessory Resp Muscle Use
Cardiac: Regular Rhythm and S1/S2; Negative Tachycardic
GI: Soft
Neuro: AO x 3
Psych: Calm
Data Reviewed
-
Labs: Labs Reviewed by me
[2025-02-12 12:14] LABS: Glucose - Point of Care 157 mg/dl (70-99)
[2025-02-12] MEDS: NOVOLOG FLEXPEN-LOW RESISTANCE 1 UNITS SC (12:23)
--- NOTE | 2025-02-12 15:27 | W.DCSUMMARY ---
Discharge Summary
Discharge Data
Date of Admission: 02/09/25
Date of Discharge: 02/12/25
-
Pending Results: Yes (Left pleural fluid cytology)
Hospital Course
Primary diagnosis:
Large symptomatic left pleural effusion suspected parapneumonic
Acute hypoxic respiratory failure secondary above-resolved
Hyponatremia
Secondary diagnosis:
Coronary artery disease
Diabetes mellitus type 2
Hospital course:
Patient presented with worsening shortness of breath. Prior to that 10 days ago he started to have upper respiratory symptoms including cough and cold and flulike symptoms. He did have a flu shot. He was doing well but then he started to get
progressively dyspneic. He had a cough as well. Was having difficulty to catch her breath. Not much phlegm. No fever or chills.
He was noted tachypneic. Chest x-ray showed large left-sided pleural effusion with almost complete whiteout.
He had a initial pleural tap which drained out 1700 cc on the follow-up chest x-ray still showed persistent moderate amount of pleural effusion. He had another tap yesterday which drained 2000 cc of fluid. Was exudative by lights criteria.
Cytology was pending. With the 2 tabs he had complete resolution of shortness of breath and also hypoxia. There was no exertional hypoxia either.
Was seen by pulmonary who felt may be parapneumonic. Advised to complete a course of antibiotics and they will follow him in the office.
No other changes were made to his medication regimen other than addition of cefdinir for 5 days and azithromycin for 3 more days.
Consultants on board:
Pulmonary-Florinda Santana
Portions of this chart may have been created with voice recognition software. Occasional wrong word or 'sound alike' substitutions may have occurred due to the inherent limitations of voice recognition software.
Discharge Plan
-
Patient Disposition: Home (Routine Discharge)
Discharge Diagnosis/Procedures: Large left pleural effusion suspected parapneumonic
Diet: Regular
Activity: As tolerated
Driving Restrictions: Not until seen by your Dr
Bathing Restrictions: None
Referrals:
Florinda Clayton DO [Active, Pulmonary Medicine] - in two to three weeks
Referral Note: PFT
Elvia Zuniga DO [Family Provider, Family Practice] - in less than 1 week
Prescriptions:
New
cefdinir 300 mg capsule
300 mg PO BID Qty: 10 0RF
azithromycin 500 mg tablet
500 mg PO DAILY 3 Days Qty: 3 0RF
Continued
coenzyme Q10 [Co Q-10] 200 MG capsule
200 mg PO DAILY
omega 5-ymy-xdn-fish oil [Fish Oil] 1 EACH capsule
1 ea PO DAILY
aspirin 81 MG tablet,delayed release (DR/EC)
81 mg PO DAILY Qty: 1 0RF
nitroglycerin 0.4 MG tablet, sublingual
0.4 mg sublingual [id number] PRN (Reason: chest pain) Qty: 0 0RF
Patient Comments:
patient took a couple days ago
potassium chloride 10 MEQ tablet extended release
40 meq PO DAILY
travoprost 0.004 % Drops
1 drp BOTH EYES QPM
amlodipine 10 mg Tablet
5 mg PO DAILY
losartan 100 mg Tablet
100 mg PO DAILY
magnesium 250 mg Tablet
250 mg PO DAILY
oxybutynin chloride 10 mg Tablet Extended Release 24hr
10 mg PO BID
omeprazole 40 mg Capsule,Delayed Release(Dr/Ec)
40 mg PO BID
hydrochlorothiazide 25 mg Tablet
25 mg PO DAILY
rosuvastatin 5 mg Tablet
2.5 mg PO DAILY
metformin 500 MG tablet extended release 24hr
500 mg PO BID
Discontinued
cefpodoxime 200 mg Tablet
200 mg PO BID
azithromycin 250 mg Tablet
250 mg PO DAILY
Discharge Orders:
Discharge Patient (As Directed); Ordered 02/12/25
Ordered By: Wilder Cuba
Discharge Date and Time
Print Language: CAMBODIAN
[2025-02-12 15:28] VITALS: BP 125/67
== END 2025-02-12 16:22 | disposition home or self-care (01) | DRG 193 ==
LOC: 3 WEST ACU 22:34
PROVIDERS: Radiology Diagnostic Radiology; Radiology Vascular & Interventional Radiology; ADMITTING PHYSICIAN Internal Medicine; ATTENDING PHYSICIAN Internal Medicine; EMERGENCY PHYSICIAN Emergency Medicine; FAMILY PHYSICIAN Family Medicine; OTHER PHYSICIAN Internal Medicine
PROC: 0W9B3ZZ Drainage of Left Pleural Cavity, Percutaneous Approach (ICD-10-PCS; 2025-02-10)
DX: J18.9 Pneumonia, unspecified organism (principal); J96.01 Acute respiratory failure with hypoxia; J91.8 Pleural effusion in other conditions classified elsewhere; E87.1 Hypo-osmolality and hyponatremia; J98.11 Atelectasis; I25.10 Atherosclerotic heart disease of native coronary artery without angina pectoris; E11.9 Type 2 diabetes mellitus without complications; D72.829 Elevated white blood cell count, unspecified; E78.00 Pure hypercholesterolemia, unspecified; Z79.899 Other long term (current) drug therapy; Z87.891 Personal history of nicotine dependence; Z85.46 Personal history of malignant neoplasm of prostate; Z92.3 Personal history of irradiation; Z95.1 Presence of aortocoronary bypass graft; Z95.5 Presence of coronary angioplasty implant and graft
CPT/HCPCS: 32555; 71045; 71046; 80048; 80053; 82945; 82962; 83036; 83615; 83735; 83880; 83935; 83986; 84155; 84157; 84300; 84484; 85025; 85027; 87015; 87070; 87116; 87205; 88112; 88305; 88341; 88342; 89051; 92610; 93005; 94640; 99285

== ENCOUNTER 2025-03-01 14:39 | Inpatient (IN) | payer OTHER, SELFPAY ==
[2025-03-01] VITALS (8 sets, daily range): BP systolic 117–154; BP diastolic 59–89; BMI 25.7
--- NOTE | 2025-03-01 11:43 | ED.GENMED ---
Addendum entered and electronically signed by Chan Peterson DO 03/01/25 13:37:
Update patient with moderate effusion apparently bifascicular block requiring permanent pacemaker, complicated history will require admission specialty consultation advanced imaging
Original Note:
History of Present Illness
General
Chief Complaint: Cardiac Symptoms
Source: patient
Exam Limitations: none
Time Seen by Provider: 03/01/25 11:36
Nursing documentation reviewed up to this point in time: agreed with
History of Present Illness
History of Present Illness:
75-year-old male CAD bypass surgery bifascicular block admitted with sound like a pleural effusion recently apparently had some degree of heart block was told that he needs to be monitored and have a pacemaker by his digital media strategist Dr. Vanna Garcia
said fatigue wheezing shortness of breath lower extremity edema
Past History
Past History
ED Past Medical History: HTN and NIDDM
ED Past Surgical History: None
Social History
Tobacco: Non-smoker
Alcohol: Occasional
Drug: None
Personal:
Living: with family
Employment: Employed
Family History
Family History: Other (Noncontributory)
Phy Exam
Physical Exam
Physical Exam:
Physical Exam
General: no apparent distress, not acutely ill
Neck: No jaundice
Heart: s1/s2 regular rate and rhythm, no murmur. equal radial pulses.
Lungs: Crackles on the left
Abdomen: Not
Neuro: alert and oriented. no focal neurological deficits
Skin: no rash
Psychiatric: well kept. interactive and cooperative
Extremities: Edema is
Course
Orders/Labs/Results
Orders:
Orders
03/01/25 10:51
EKG [Electrocardiogram (*1)] Urgent
Reason for Study: Shortness of Breath
EKG- Treatment ONCE
03/01/25 11:36
Electrocardiogram (*1) Stat
Reason for Study: Other
Other Reason for Exam: chest pain
Cardiac Monitoring- Treatment ONCE
CR Chest - 2 Views Urgent
Comment:
Reason For Exam: sob
03/01/25 11:50
Complete Blood Count/With Diff Urgent
Comprehensive Metabolic Panel Urgent
Magnesium Urgent
NT-proBNP Urgent
PTT Urgent
Prothrombin Time Urgent
TSH Urgent
Abnormal Lab Results
03/01/25
11:50
RBC 4.62 L 10^6/uL
(4.70-6.10)
Hct 38.9 L %
(39.0-52.0)
Abs Immat Gran (auto) 0.1 H 10^3/uL
(0-0.05)
Absolute Neuts (auto) 6.9 H 10^3/uL
(1.4-6.5)
Absolute Lymphs (auto) 1.1 L 10^3/uL
(1.2-3.4)
Absolute Monos (auto) 1.0 H 10^3/uL
(0.1-0.6)
Immature Gran % 0.8 H %
(0-0.5)
Neutrophils % 75.5 H %
(42.2-75.2)
Lymphocytes % 11.9 L %
(20.5-51.1)
Monocytes % 10.5 H %
(1.7-9.3)
PT 15.5 H Sec
(11.4-14.6)
APTT 77.6 H Sec
(23.4-35.0)
Potassium 3.4 L mmol/L
(3.5-5.1)
Glucose 129 H mg/dl
(70-99)
03/01/25 11:50
03/01/25 11:50
Vital Signs
Initial and Last Documented VS:
Initial Vital Signs
Temp Pulse Resp BP Pulse Ox
97.8 F 94 16 148/84 98
03/01/25 10:48 03/01/25 10:48 03/01/25 10:48 03/01/25 10:48 03/01/25 10:48
Last Documented Vital Signs
Temp Pulse Resp BP Pulse Ox
97.8 F 73 24 139/79 95
03/01/25 10:48 03/01/25 12:45 03/01/25 12:45 03/01/25 11:49 03/01/25 12:45
*Pulse Oximetry
SaO2: 96
Oxygen Mode of Delivery: Room air
Patient hypoxic: no
*Critical Care Note
Total Time (30-74mins, 75-104mins- exclusive of procedures): Not Applicable
ED Attending Note
-
Portions of this chart may have been created with voice recognition software.� Occasional wrong word or��sound alike� substitutions may have occurred due to the inherent limitations of voice recognition software.
Discharge Plan
Departure
Patient Disposition: Admit
Date of Disposition: 03/01/25
Time of Disposition: 12:55
Admit to: Telemetry
Presentation/result/management discussed w/ accepting MD/DO: Hospitalist
Patient with high blood pressure during this ER visit?: No
Condition: Fair
Discharge Problem:
Pleural effusion
Prescriptions:
No Action
coenzyme Q10 [Co Q-10] 200 MG capsule
200 mg PO DAILY
omega 1-thm-mek-fish oil [Fish Oil] 1 EACH capsule
1 ea PO DAILY
aspirin 81 MG tablet,delayed release (DR/EC)
81 mg PO DAILY Qty: 1 0RF
nitroglycerin 0.4 MG tablet, sublingual
0.4 mg sublingual [id number] PRN (Reason: chest pain) Qty: 0 0RF
Patient Comments:
patient took a couple days ago
potassium chloride 10 MEQ tablet extended release
40 meq PO DAILY
travoprost 0.004 % Drops
1 drp BOTH EYES QPM
amlodipine 10 mg Tablet
5 mg PO DAILY
losartan 100 mg Tablet
100 mg PO DAILY
magnesium 250 mg Tablet
250 mg PO DAILY
oxybutynin chloride 10 mg Tablet Extended Release 24hr
10 mg PO BID
omeprazole 40 mg Capsule,Delayed Release(Dr/Ec)
40 mg PO BID
hydrochlorothiazide 25 mg Tablet
25 mg PO DAILY
rosuvastatin 5 mg Tablet
2.5 mg PO DAILY
metformin 500 MG tablet extended release 24hr
500 mg PO BID
cefdinir 300 mg capsule
300 mg PO BID Qty: 10 0RF
azithromycin 500 mg tablet
500 mg PO DAILY 3 Days Qty: 3 0RF
Referrals:
Elvia Zuniga DO [Family Provider, Family Practice]
Interventions
Interventions:
*Risk Screen - Suicide Last Done: 03/01/25 10:48
*Neglect/Abuse Screening Last Done: 03/01/25 10:48
[facility] Fall Risk Assessment Tool Last Done: 03/01/25 11:52
ED- Pulmonary Assessment Last Done: 03/01/25 11:52
ED- Cardiac Assessment Last Done: 03/01/25 11:52
Discharge Date and Time
Print Language: BAHRAINI
[2025-03-01 12:05] LABS: Hematocrit 38.9 % (39.0-52.0); Hemoglobin 13.8 g/dL (13.0-18.0); Mean Corp Hgb Conc. 35.5 g/dL (33.0-37.0); Mean Corpuscular Volume 84.2 fL (80.0-94.0); Nucleated Red Blood Cells % 0 % (-); Platelet Count 372 10^3/uL (130-400); Red Cell Dist. Width 12.8 % (11.5-14.5)
[2025-03-01 12:10] LABS: INR 1.22; PT 15.5 Sec (11.4-14.6)
[2025-03-01 12:11] LABS: APTT 77.6 Sec (23.4-35.0)
[2025-03-01 12:16] LABS: ALT (SGPT) 35 U/L (0-50); AST (SGOT) 39 U/L (17-59); Albumin 4.1 g/dl (3.5-5.0); Alkaline Phosphatase 62 U/L (38-126); Blood Urea Nitrogen 15 mg/dl (9-20); Calcium 9.4 mg/dl (8.4-10.2); Carbon Dioxide 22 mmol/L (22-30); Chloride 104 mmol/L (98-107); Glucose 129 mg/dl (70-99); Magnesium 1.7 mg/dl (1.6-2.3); Potassium 3.4 mmol/L (3.5-5.1); Sodium 136 mmol/L (135-145); Total Protein 7.0 g/dl (6.3-8.2); eGFR > 60.00
--- NOTE | 2025-03-01 12:27 | W.PN.UPDATE ---
Update Note
Progress Note Update
This is an addendum to H&P written by PRODUCT SCIENTIST Gill Stephen
I saw and examined the patient.
The PRODUCT SCIENTIST's note was reviewed and I agree with the note.
Comment:
Mr. Mark Wells is a 75 yo man with hx CAD s/p CABG, NIDDM, prostate CA s/p resection and XRT, HLD, GERD, TIA, admission 02/09-02/12/25 for left pleural effusion (s/p thoracentesis with exudative analysis treated s/p antibiotic course) sent from
Medical Management Specialist to ER for PPM evaluation.
Triage VS: T 97.8, P 94, RR 16, BP 148/84, SpO2 98%
On exam patient is AAO x 3, no acute distress; Chest with end expiratory wheezing; decreased breath sounds left side. Abdomen soft, non-tender. No LE swelling.
LABS: WBC 9.1, Hg 13.8, PLT 372, Na 136, K+ 3.4, CO2 22, Cr 0.8, Glucose 120, liver enzymes WNL
EKG: NSR @ 85, prolonged QTc 516, RBBB, bifascicular block
Pathology from 02/11 - suspicious for malignant mesothelioma
Bifascicular block and Syncope with plans for PPM 03/11
-patient with hx bifascicular block with hx syncope, referrred for PPM
-Cardiology consulted
Recurrent left pleural effusion
Cytology report from 02/11 with evidence of malignant mesothelioma
-patient now aware of these results
-CT Chest with IV Contrast
-Oncology, Pulmonary and IR consults
Hypokalemia
-replete
-Mag OK 1.7
CAD s/p CABG
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
NIDDM
-hold Metformin
-ISS low
Essential HTN - FREIGHT BRAKE OPERATOR Losartan, Amlodipine
Prostate CA s/p Resection and XRT
HLD - FREIGHT BRAKE OPERATOR Statin
GERD - FREIGHT BRAKE OPERATOR PPI
*awaiting home med rec
remainder of plan per PRODUCT SCIENTIST note
76 minutes spent on patient care
--- NOTE | 2025-03-01 12:39 | HPS.HSE ---
Family Physician
-
Family Physician: Elvia Zuniga
Chief Complaint
-
Syncope, fatigue, wheezing, shortness of breath, lower extremity edema
History of Present Illness
75-year-old male advised last week by his rn allergy due to history of reported prior syncope with heart block with symptoms of fatigue, wheezing, shortness of breath and lower extremity edema. Patient reports he decided to come today due to
shortness of breath and wheezing. The patient reports he has had history of bifascicular block for several years but had a syncopal episode in January then 1 additional episode he followed up with his rn allergy Dr. Prabhakar [facility] on Monday who wanted admission for permanent pacemaker given symptomatic syncope secondary to bifascicular block. He also complains of increased shortness of breath with activity and does have a recurrent left-sided pleural
effusion. He is status post recent admission discharge 02/09 - 02/12/2025 for large left pleural effusion suspected parapneumonic drained 1700 then an additional 2000 cc fluid by IR which was exudative . He completed course of cefdinir and a
Zithromax. In review of his cytology results they were concerning for malignant mesothelioma with results faxed to Dr. Joselin Clayton per record. I discussed patient's cytology results showing mesothelioma. Patient was made aware we will get CT scan
of his chest and consultations to oncology and pulmonology in addition to cardiology. He was also made aware he will require outpatient follow-up for PET scan with oncology for plan to address his new diagnosis of mesothelioma. He may also require
inpatient pleural biopsy. Patient reports he was exposed to agent orange and herbicides in 1967 when stationed in [place] in the service. 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
He has past medical history of hypertension, DM 2, CAD status post triple-vessel CABG 2012, cardiac stent, prostate cancer status post XRT and resection, soft tissue cancer of the back in status post resection unsure type, former smoker, sleep
apnea wears BiPAP, renal calculi
Medical History
Past Medical History
Past Medical History: Reports CAD (CAD status post triple-vessel CABG in 2013, history of stent placement), Cancer (History of prostate cancer status post XRT and resection, history of soft tissue cancer of the back in the 80s status post
resection), HTN, Hypercholesterolemia, NIDDM and Other
Additional Past Medical History:
large left pleural effusion suspected parapneumonic drained 1700 then an additional 2000 cc fluid by IR which was exudative and highly suspicious for malignant melanoma
Bifascicular block
CAD/CABG Multivessel galena CAD with widely patent KELLEY-LAD and SVG-OM2-OM 3 bypass grafts.)
Prostate cancer status post XRT/prostatectomy
History of TIA greater than 5 years ago presented with double vision lasting 10 months
Past Surgical History: Reports Cardiac (CABG) and Urological (Prostatectomy)
Social History
Tobacco: Former Smoker (12 years age [age] 1/2 to 1 pack/day)
Alcohol: None
Drug: None
Personal:
Living: With Family
Family History
Family History: Not pertinent
Allergies / Home Medications
Allergies reflects when Allergies were last updated in [employer].
Home Medications with original date entered in [employer]
Allergy/Medication List:
Allergies
Allergy/AdvReac Type Severity Reaction Status Date / Time
metoprolol Allergy sob and Verified 03/01/25 10:48
chest
vibrating
Home Medications
aspirin 81 mg tablet,delayed release 81 mg PO DAILY ##1 12/27/17
coenzyme Q10 200 mg capsule (Co Q-10) 200 mg PO DAILY Supplement 12/27/17
nitroglycerin 0.4 mg sublingual tablet 0.4 mg sublingual [id number] PRN chest pain ##0 12/27/17
omega 7-uji-wns-fish oil 300 mg-1,000 mg capsule (Fish Oil) 1 ea PO DAILY Supplement 12/27/17
potassium chloride 10 mEq tablet,extended release 40 meq PO DAILY Electrolyte Repletion 06/26/20
amlodipine 10 mg tablet 5 mg PO DAILY Blood Pressure 01/03/23
losartan 100 mg tablet 100 mg PO DAILY Blood Pressure 01/03/23
magnesium 250 mg tablet 400 mg PO DAILY Supplement 01/03/23
omeprazole 40 mg capsule,delayed release 40 mg PO BID Gastrointestinal Issue 01/03/23
oxybutynin chloride 10 mg tablet,extended release 24 hr 10 mg PO BID Urinary Issue 01/03/23
travoprost 0.004 % eye drops 1 drp BOTH EYES QPM Eye Condition 01/03/23
hydrochlorothiazide 25 mg tablet 25 mg PO DAILY Blood Pressure 02/09/25
metformin 500 mg tablet,extended release 24hr (osmotic) 500 mg PO BID Diabetes 02/09/25
rosuvastatin 5 mg tablet 2.5 mg PO DAILY cholesterol 02/09/25
Review of Systems
-
History Source: Patient
A 12 point ROS was completed and negative except as noted: Yes
Constitutional: Denies Fever or Weight Gain
EENT: Denies Sore Throat or Mouth Pain
Respiratory: Reports Trouble Breathing and Other (Wheezing)
Cardiac: Denies Chest Pain or Palpitations
Abdomen/GI: Denies Abdominal Pain, Nausea, Vomiting, Diarrhea or Constipated
: Denies Dysuria, Frequency or Flank Pain
Musculoskeletal: Reports Edema (Trace +1 bilateral leg edema); Denies Joint Pain
Skin: Denies Itching or Rash
Neurological: Denies Dizzy, Headache or Weakness
Endocrine: Reports No Symptoms
Hematologic/Lymphatic: Reports No Symptoms
Psych: Reports Calm
Physical Exam
Vital Signs
Vital Signs
Temp Pulse Resp BP Pulse Ox
97.8 F 89 34 139/79 95
03/01/25 10:48 03/01/25 12:10 03/01/25 12:10 03/01/25 11:49 03/01/25 12:10
Physical Exam
General: No Fever or Chills
HEENT: NormoCephalic, Anicteric, PERRLA, [place] Conjunctivae, No Ptosis, Neck Nontender and Other (Negative anterior cervical posterior adenopathy or axillary adenopathy); No Nodules
Respiratory: Wheezes (Expiratory bilaterally diminished breath sounds left lung secondary to pleural effusion right CTA)
Cardiac: S1/S2, Regular Rhythm and Peripheral Edema (Trace bilateral lower legs); No Murmur, Rub or Gallop
Breast: Deferred by me
GI: Soft, Non Tender, Non Distended and Normal Bowel Sounds
Rectal: Deferred by Provider
Genito-urinary: Deferred by me
Musculoskeletal: No Clubbing, No Cyanosis, Edema, Left Lower Extremity (Trace) and Edema, Right Lower Extremity (Trace); No Edema, Left Upper Extremity or Edema, Right Upper Extremity
Skin: Warm and Dry; No Rash
Neuro: AO x 3, No Motor Deficits, Nonfocal/grossly intact, Cranial Nerves Intact and No Sensory Deficits; No Slurred Speech, Facial Droop, Tremors or Sedated
Psych: Calm
Laboratory Results
-
03/01/25 11:50
03/01/25 11:50
Laboratory Results
PT 15.5 Sec (11.4-14.6) H 03/01/25 11:50
INR 1.22 03/01/25 11:50
APTT 77.6 Sec (23.4-35.0) H 03/01/25 11:50
Total Bilirubin 0.9 mg/dl (0.2-1.3) 03/01/25 11:50
AST 39 U/L (17-59) 03/01/25 11:50
ALT 35 U/L (0-50) 03/01/25 11:50
Alkaline Phosphatase 62 U/L (38-126) 03/01/25 11:50
Data Reviewed
-
Diagnostic Radiology: Report Reviewed by me
Lab Data: Labs Reviewed by me
Impression/Plan
-
Impression/plan:
Admit to IVU
#History of symptomatic bifascicular block with syncope
Reports of syncope in January x 2
-Consult cardiology for Pacemaker placement
-Patient follows with Dr. Prabhakar [facility] see scanned consult in chart from Wednesday, February 26, 2025
EKG: NSR 85 bpm, bifascicular block, QTc B516, T wave inversion in septal leads V1 V2 appears chronic from January
2D echo 02/12/2024: EF 60% mild LVH, normal RV systolic function mild left atrial enlargement mild TR
This imaging study was from patient's rn allergy not done at [facility]
#Prolonged QTc
QTc B516 MS
- Prolonging QTc agents
#Hypokalemia 2/2 diuretics
K3.4
KCl 40 mEq
- Follow BMP
#Recurrent Left-sided pleural effusion with wheezing
#Pleural fluid NEWLY suspicious for Malignant Mesothelioma on cytology 02/10/2025
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
#Former smoker age [age] total 12 years 1/2 pack to 1 pack a day
Recent large left pleural effusion status post thoracentesis x 2
1700 cc on 02/10/2025 then 2000 cc by IR on 02/11/2025�completed course of cefdinir and Zithromax
-95% RA
Patient informed of diagnosis will need outpatient PET scan and follow-up with Oncology
-Consult Pulmonary
- Consult Oncology
- Consult IR for left-sided thoracentesis
- Check CT chest with contrast given fluid cytology was positive for mesothelioma
Patient may require pleural biopsy will be determined by pulmonology consult
- Check COVID, flu swab
- DuoNeb
#Hypertension
BP 139/79
-Continue amlodipine 5 mg daily, losartan 100 mg daily
#DM 2
Accu-Cheks with SSI, check HgbA1c
-Hold metformin 500 mg twice daily
#Hypomagnesemia
Mag 1.7 will check in a.m.
Continue Mag-Ox
#CAD status post triple-vessel CABG 2012( Multivessel galena CAD with widely patent KELLEY-LAD and SVG-OM2-OM 3 bypass grafts.)
Cardiac stent
-Continue Crestor 2.5 mg daily, losartan 100 mg daily, continue aspirin 81 mg daily, fish oil
Cardiac cath 01/03/2023 EF 50% normal left ventricular function, patent bypass grafts x 3
# Prostate cancer status post XRT status post prostatectomy
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
Sleep apnea
Patient reports he uses BiPAP he believes setting is 8.5
Other PMH:
Kidney stone status post removal 2008
DVT prophylaxis
Subcu Lovenox
Full code
[2025-03-01 12:46] LABS: TSH 0.59 uIU/ml (0.47-4.68)
[2025-03-01] MEDS: KCL 40 MEQ PO (13:49)
[2025-03-01] MEDS: DUONEB 3 ML INH ×2 (13:50→19:12)
[2025-03-01 14:26] LABS: COVID-19 Antigen Negative (Negative)
--- NOTE | 2025-03-01 14:28 | CON.CAR ---
Consultation
Consultation Request
Date/Time Consultation Requested: 03/01/2025 13: 00
Date/Time Consultation Performed: 03/01/2025 14: 00
Requesting Provider: Gildardo
Performing Provider: Rebekah
Reason for Consultation: Recurrent syncope and possible need for pacemaker
Medical History
-
Chief Complaint: Shortness of breath and wheezing
History of Present Illness:
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
syncope, diabetes. He had been seen by his implementation engineer in the past week and was arranged for pacemaker implant at [facility] to be done on March 11, 2025.
He presents with shortness of breath and wheezing. He notes that he has had several episodes of syncope without warning. He was to have a pacemaker placed as an outpatient on March 11, 2025.
Past Medical History
Past Medical History: Other (See HPI also has history of sleep apnea requiring BiPAP and renal calculi)
Past Surgical History: Other (See HPI, history of kidney stones, skin cancer resection 1985, uvula surgery 2006, CABG 2012)
Social History
Tobacco: Former Smoker (12 years from age [age] 7-1/2 to 1 pack/day)
Alcohol: None
Drug: None
Personal:
Living: With Family
Employment: Retired
Family History
Family History: Reviewed & Not Pertinent
Allergies / Home Medications
Allergy/AdvReac Type Severity Reaction Status Date / Time
metoprolol Allergy sob and Verified 03/01/25 10:48
chest
vibrating
�Medication �Instructions �Recorded �Confirmed �Type
aspirin 81 mg tablet,delayed 81 mg PO DAILY ##1 12/27/17 03/01/25 Rx
release
nitroglycerin 0.4 mg sublingual 0.4 mg sublingual [id number] PRN 12/27/17 03/01/25 Rx
tablet chest pain ##0
losartan 100 mg tablet 100 mg PO DAILY Blood Pressure 01/03/23 03/01/25 History
omeprazole 40 mg capsule,delayed 40 mg PO BID Gastrointestinal Issue 01/03/23 03/01/25 History
release
oxybutynin chloride 10 mg 10 mg PO BID Urinary Issue 01/03/23 03/01/25 History
tablet,extended release 24 hr
travoprost 0.004 % eye drops 1 drp BOTH EYES QPM Eye Condition 01/03/23 03/01/25 History
hydrochlorothiazide 25 mg tablet 25 mg PO DAILY Blood Pressure 02/09/25 03/01/25 History
rosuvastatin 5 mg tablet 2.5 mg PO DAILY cholesterol 02/09/25 03/01/25 History
Prevagen 1 cap PO DAILY 03/01/25 03/01/25 History
amlodipine 10 mg tablet 5 mg PO HS 03/01/25 03/01/25 History
coenzyme Q10 10 mg capsule 10 mg PO DAILY 03/01/25 03/01/25 History
magnesium oxide 400 mg PO DAILY 03/01/25 03/01/25 History
metformin 500 mg tablet 500 mg PO BID 03/01/25 03/01/25 History
omega 3-ybn-kzj-fish oil 1,000 mg 1 cap PO DAILY 03/01/25 03/01/25 History
(120 mg-180 mg) capsule (Fish Oil)
phenylephrine-guaifenesin 2.5 20 ml PO DAILYPRN PRN cough 03/01/25 03/01/25 History
mg-100 mg/5 mL oral liquid
potassium chloride 20 mEq 40 meq PO DAILY 03/01/25 03/01/25 History
tablet,extended release
Review of Systems
-
History Source: Patient
All other systems: Negative unless noted
Constitutional: No Symptoms
EENT: No Symptoms
Respiratory: Trouble Breathing
Cardiac: Syncope
Abdomen/GI: No Symptoms
: No Symptoms
Musculoskeletal: No Symptoms
Skin: No Symptoms
Neurological: No Symptoms
Endocrine: No Symptoms
Hematologic/Lymphatic: No Symptoms
Physical Exam
Vital Signs
Temp Pulse Resp BP Pulse Ox
97.8 F 73 24 139/79 95
03/01/25 10:48 03/01/25 12:45 03/01/25 12:45 03/01/25 11:49 03/01/25 12:45
General: Well developed, well nourished in NAD.
Neck: Supple, no JVD, HJR, carotids +2 B/L, no bruits bilaterally.
Heart: Non displaced PMI, RRR, no murmurs, No S3, S4, no rubs.
Lungs: Clear to auscultation bilaterally, no wheeze, rhonchi, rubs bilaterally,
normal expiratory phase.
Abdomen: Normal bowel sounds, soft, non-tender, non-distended.
Extremities: No clubbing, cyanosis or edema bilaterally.
Neuro: Grossly nonfocal, awake, alert and oriented x3.
Lab Results
03/01/25 11:50
03/01/25 11:50
Jzd-N-Ihthmbshbgs Pept 471 pg/ml 03/01/25 11:50
Impression / Plan
-
Primary implementation engineer Dr. Rodriguez ( [facility])
Primary: Elvia Driscoll [facility]
Assessment:
Hypoxia/shortness of breath
Moderate left pleural effusion
History of mesothelioma
Recurrent syncope/right bundle branch block and left anterior fascicular block with plan for pacemaker on 03/11/2025
CAD status post CABG in 2012 with catheterization 2022 with patent bypass grafts
History of TIA
Hypertension
Diabetes
GERD
Hypercholesterolemia
PVD
Sleep apnea on BiPAP
Echocardiogram January 2024: Ejection fraction 60%
Normal PET CT stress test March 2022 and February 2024
Plan:
Shortness of breath and wheezing may be due to left pleural effusion which has been consistent with mesothelioma
He is for CT of chest and may need thoracentesis
No signs or symptoms of CHF. proBNP was only 471
With regards to recurrent syncope patient was scheduled for outpatient pacemaker implantation. Will need to discuss further with electrophysiology regarding whether patient will be done during this hospital stay
Also need to establish prognosis of mesothelioma although syncope has been recurrent and does have right bundle branch block and left anterior fascicular block
Data Reviewed
-
EKG: Tracing Personally Visualized and interpreted
Radiology: Report Reviewed by me
CT Scan: Report Reviewed by me
Medical Tests (Nuc Med, Echo etc): Report Reviewed by me
Labs: Labs Reviewed by me
Old Records: Reviewed
--- NOTE | 2025-03-01 16:07 | CON.ONC ---
Consultation
-
Date Consultation Requested: 03/01/25
Date Consultation Performed: 03/01/25
Requesting Provider: Sol Ewing
Performing Provider: Juanita
Reason for Consultation: hx mesothelioma
Impression
Impression
Recurrent left pleural effusion suspect mesothelioma
Plan
Plan
Discussed with patient need to image with a CT scan of the chest and consideration for pleural biopsy pending those results. Will check PSA level.
Patient History
History of Present Illness
75-year-old male evaluated by cardiology last week for consideration of pacemaker placement for history of syncope secondary to bifascicular block noted increasing shortness of breath with activity associated with wheezing and fatigue found with
recurrence of a large left pleural effusion drained 3 weeks prior for which subsequent pathology evaluation noted abnormal cytology suspicious for malignant mesothelioma.. The patient is a [place] who notes exposure to agent orange in 1967
stationed in [place]. 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
Past-Medical/Surgical History
CAD with CABG, hypertension, hypercholesterolemia, NIDDM,TIA
Patient Medication
�Medication �Instructions �Recorded �Confirmed �Last Taken �Type
aspirin 81 mg tablet,delayed 81 mg PO DAILY ##1 12/27/17 03/01/25 03/01/25 Rx
release
nitroglycerin 0.4 mg sublingual 0.4 mg sublingual [id number] PRN 12/27/17 03/01/25 02/27/25 Rx
tablet chest pain ##0
losartan 100 mg tablet 100 mg PO DAILY Blood Pressure 01/03/23 03/01/25 03/01/25 History
omeprazole 40 mg capsule,delayed 40 mg PO BID Gastrointestinal Issue 01/03/23 03/01/25 03/01/25 History
release
oxybutynin chloride 10 mg 10 mg PO BID Urinary Issue 01/03/23 03/01/2525 History
tablet,extended release 24 hr
travoprost 0.004 % eye drops 1 drp BOTH EYES QPM Eye Condition 01/03/23 03/01/25 02/28/25 History
hydrochlorothiazide 25 mg tablet 25 mg PO DAILY Blood Pressure 02/09/25 03/01/25 03/01/25 History
rosuvastatin 5 mg tablet 2.5 mg PO DAILY cholesterol 02/09/25 03/01/25 02/28/25 History
Prevagen 1 cap PO DAILY 03/01/25 03/01/25 03/01/25 History
amlodipine 10 mg tablet 5 mg PO HS 03/01/25 03/01/25 02/28/25 History
coenzyme Q10 10 mg capsule 10 mg PO DAILY 03/01/25 03/01/25 03/01/25 History
magnesium oxide 400 mg PO DAILY 03/01/25 03/01/25 03/01/25 History
metformin 500 mg tablet 500 mg PO BID 03/01/25 03/01/25 03/01/25 History
omega 6-ncg-ury-fish oil 1,000 mg 1 cap PO DAILY 03/01/25 03/01/25 03/01/25 History
(120 mg-180 mg) capsule (Fish Oil)
phenylephrine-guaifenesin 2.5 20 ml PO DAILYPRN PRN cough 03/01/25 03/01/25 03/01/25 History
mg-100 mg/5 mL oral liquid
potassium chloride 20 mEq 40 meq PO DAILY 03/01/25 03/01/25 03/01/25 History
tablet,extended release
Active Medications
Generic Name Dose Route Start Last Admin
Trade Name Freq PRN Reason Stop Dose Admin
Acetaminophen 650 mg 03/01/25 14:53
Acetaminophen 325 Mg Tablet PO 03/29/25 14:52
Q4HPRN PRN
mild pain/KOO/temp> 100.4F
Albuterol/Ipratropium 3 ml 03/01/25 22:00
Ipratropium 0.5/Albuterol 3 Mg (3 Ml Ampul) INH
TID GUMARO
Protocol
Albuterol/Ipratropium 3 ml 03/01/25 16:05
Ipratropium 0.5/Albuterol 3 Mg (3 Ml Ampul) INH
R Q4HPRN PRN
wheezing/shortness of breath
Protocol
Amlodipine Besylate 5 mg 03/02/25 08:00
Amlodipine 10 Mg Tablet PO 03/30/25 07:59
DAILY GUMARO
Aspirin 81 mg 03/02/25 08:00
Aspirin 81 Mg (Enteric Coated) Tablet PO 03/30/25 07:59
DAILY GUMARO
Dextrose 12.5 grams 03/01/25 14:53
Dextrose 50% (0.5 Grams/Ml) 50 Ml Syringe IV 03/29/25 14:52
[id number] PRN
hypoglycemia
Protocol
Enoxaparin Sodium 40 mg 03/01/25 18:00
Enoxaparin Sodium 40 Mg/0.4 Ml Syringe SC 03/01/25 18:01
QPM GUMARO
Glucagon 1 mg 03/01/25 14:53
Glucagon 1 Mg Vial IM 03/29/25 14:52
PRN PRN
hypoglycemia
Protocol
Hydrochlorothiazide 25 mg 03/02/25 08:00
Hydrochlorothiazide 25 Mg Tablet PO 03/30/25 07:59
DAILY GUMARO
Insulin Aspart 0 units 03/01/25 16:30
Insulin Aspart Low Resistance 300 Units/3 Ml Pen.Injctr SC 03/29/25 16:29
AC GUMARO
Protocol
Latanoprost 1 drop 03/01/25 18:00
Latanoprost 0.005% (Ophthalmic Solution) 2.5 Ml Bottle BOTH EYES 03/29/25 17:59
QPM GUMARO
Losartan Potassium 100 mg 03/02/25 08:00
Losartan 100 Mg Tablet PO 03/30/25 07:59
DAILY GUMARO
Magnesium Oxide 400 mg 03/02/25 08:00
Magnesium Oxide 400 Mg Tablet PO 03/30/25 07:59
DAILY GUMARO
Oxybutynin Chloride 10 mg 03/01/25 20:00
Oxybutynin 5 Mg Tablet PO 03/29/25 19:59
BID GUMARO
Pantoprazole Sodium 40 mg 03/01/25 20:00
Pantoprazole 40 Mg Delayed Release Tablet PO 03/29/25 19:59
BID GUMRAO
Rosuvastatin Calcium 2.5 mg 03/02/25 08:00
Rosuvastatin (Crestor) 5 Mg Tablet PO 03/30/25 07:59
DAILY GUMARO
Sodium Chloride 0 flush 03/01/25 16:00
Sodium Chloride 0.9% (Flush) Syringe IV 03/29/25 15:59
PER PROTOCOL GUMARO
Review of Systems
-
History Source: Patient
All Other Systems: Reviewed and Negative
Physical Exam
-
General: Well Developed
HEENT: Moist Mucous Membranes
Cardiology: Normal Sinus Rhythm
Pulmonary: Other (diminished BS left base)
GI: Soft and Normal Bowel Sounds
Musculoskeletal: No Clubbing, No Cyanosis and No Edema
Hematologic / Lymphatic: No Lymphadenopathy
Psych: Calm and Intact Judgement/Insight
Labs
Lab Results
WBC 9.1 10^3/uL (4.8-10.8) 03/01/25 11:50
RBC 4.62 10^6/uL (4.70-6.10) L 03/01/25 11:50
Hgb 13.8 g/dL (13.0-18.0) 03/01/25 11:50
Hct 38.9 % (39.0-52.0) L 03/01/25 11:50
MCV 84.2 fL (80.0-94.0) 03/01/25 11:50
MCH 29.9 pg (27.0-31.0) 03/01/25 11:50
MCHC 35.5 g/dL (33.0-37.0) 03/01/25 11:50
RDW 12.8 % (11.5-14.5) 03/01/25 11:50
Plt Count 372 10^3/uL (130-400) 03/01/25 11:50
MPV 10.0 fL (7.4-10.4) 03/01/25 11:50
Abs Immat Gran (auto) 0.1 10^3/uL (0-0.05) H 03/01/25 11:50
Absolute Neuts (auto) 6.9 10^3/uL (1.4-6.5) H 03/01/25 11:50
Absolute Lymphs (auto) 1.1 10^3/uL (1.2-3.4) L 03/01/25 11:50
Absolute Monos (auto) 1.0 10^3/uL (0.1-0.6) H 03/01/25 11:50
Absolute Eos (auto) 0.1 10^3/uL (0-0.7) 03/01/25 11:50
Absolute Basos (auto) 0.0 10^3/uL (0-0.2) 03/01/25 11:50
Immature Gran % 0.8 % (0-0.5) H 03/01/25 11:50
Neutrophils % 75.5 % (42.2-75.2) H 03/01/25 11:50
Lymphocytes % 11.9 % (20.5-51.1) L 03/01/25 11:50
Monocytes % 10.5 % (1.7-9.3) H 03/01/25 11:50
Eosinophils % 1.0 % (0-6) 03/01/25 11:50
Basophils % 0.3 % (0-2) 03/01/25 11:50
Creatinine 0.8 mg/dL (0.7-1.3) 03/01/25 11:50
Vital Signs
Vital Signs
Temp Pulse Resp BP Pulse Ox
97.5 F 75 18 146/65 96
03/01/25 15:07 03/01/25 15:45 03/01/25 15:07 03/01/25 15:10 03/01/25 15:07
--- NOTE | 2025-03-01 17:29 | CON.PUL ---
Consultation
Consultation Request
Date/Time Consultation Requested: 03/01/2025 - 134
Date/Time Consultation Performed: 03/01/2025 - 1621
Requesting Provider: GEOFFREY Carter
Performing Provider: Dr. Glasgow
Reason for Consultation: Pleural effusion
Medical History
-
Chief Complaint: SOB
History of Present Illness:
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
orange while in the ), hypertension, hypocalcemia, NIDDM, left pleural effusion with suspected mesothelioma, bifascicular block, history of TIA, and former tobacco smoker who presents with shortness of breath, lower extremity edema,
wheezing and episode of syncope. Patient had passed out in January and saw his electrical and instrumentation manager at [facility] who recommended permanent pacemaker. CXR obtained showing a moderate-sized left pleural effusion. CT chest obtained showing a
moderate loculated left pleural effusion with left lower lobe consolidation likely due to atelectasis with inability to rule out developing pneumonia. Also a large left thyroid nodule. Of note, patient had a thoracentesis on 02/10 and 02/11/2025,
showing exudative fluid with cytopathology suspicious for malignant mesothelioma. Due to this recurrence of pleural fluid, pulmonary service now consulted for additional recommendations.
PMHx: CAD s/p CABG + coronary stent, history of prostate cancer s/p XRT + prostatectomy, history of soft tissue cancer of the back in the s/p resection (patient says it is due to herbicides + agent orange while in the ), hypertension,
hypocalcemia, NIDDM, left pleural effusion with suspected mesothelioma, bifascicular block, history of TIA, former tobacco smoker
PSHx: CABG, prostatectomy
Past Medical History
Past Medical History: Other (Above as per HPI)
Past Surgical History: Other (Above as per HPI)
Social History
Tobacco: Former Smoker (Smoked approximately 3/4 pack/day for about 10 years)
Alcohol: None
Drug: None
Personal:
Living: With Family
Family History
Family History: Reviewed & Not Pertinent
Allergies / Home Medications
Allergies
Allergy/AdvReac Type Severity Reaction Status Date / Time
metoprolol Allergy sob and Verified 03/01/25 10:48
chest
vibrating
Home Medications
�Medication �Instructions �Recorded �Confirmed �Last Taken �Type
aspirin 81 mg tablet,delayed 81 mg PO DAILY ##1 12/27/17 03/01/25 03/01/25 Rx
release
nitroglycerin 0.4 mg sublingual 0.4 mg sublingual [id number] PRN 12/27/17 03/01/25 02/27/25 Rx
tablet chest pain ##0
losartan 100 mg tablet 100 mg PO DAILY Blood Pressure 01/03/23 03/01/25 03/01/25 History
omeprazole 40 mg capsule,delayed 40 mg PO BID Gastrointestinal Issue 01/03/23 03/01/25 03/01/25 History
release
oxybutynin chloride 10 mg 10 mg PO BID Urinary Issue 01/03/23 03/01/25 03/01/25 History
tablet,extended release 24 hr
travoprost 0.004 % eye drops 1 drp BOTH EYES QPM Eye Condition 01/03/23 03/01/25 02/28/25 History
hydrochlorothiazide 25 mg tablet 25 mg PO DAILY Blood Pressure 02/09/25 03/01/25 03/01/25 History
rosuvastatin 5 mg tablet 2.5 mg PO DAILY cholesterol 02/09/25 03/01/25 02/28/25 History
Prevagen 1 cap PO DAILY 03/01/25 03/01/25 03/01/25 History
amlodipine 10 mg tablet 5 mg PO HS 03/01/25 03/01/25 02/28/25 History
coenzyme Q10 10 mg capsule 10 mg PO DAILY 03/01/25 03/01/25 03/01/25 History
magnesium oxide 400 mg PO DAILY 03/01/25 03/01/25 03/01/25 History
metformin 500 mg tablet 500 mg PO BID 03/01/25 03/01/25 03/01/25 History
omega 3-fdm-gsq-fish oil 1,000 mg 1 cap PO DAILY 03/01/25 03/01/25 03/01/25 History
(120 mg-180 mg) capsule (Fish Oil)
phenylephrine-guaifenesin 2.5 20 ml PO DAILYPRN PRN cough 03/01/25 03/01/25 03/01/25 History
mg-100 mg/5 mL oral liquid
potassium chloride 20 mEq 40 meq PO DAILY 03/01/25 03/01/25 03/01/25 History
tablet,extended release
Review of Systems
-
History Source: Patient
All other systems: Negative unless noted
Vitals / Labs / Diagnostic Testing
Vital Signs
Temp Pulse Resp BP Pulse Ox
98.5 F 73 18 117/79 95
03/01/25 22:51 03/01/25 22:50 03/01/25 22:51 03/01/25 22:50 03/01/25 22:51
Lab Data
03/01/25 11:50
03/01/25 11:50
Laboratory Results
03/01/25
11:50
PT 15.5 H
INR 1.22
APTT 77.6 H
Microbiology
03/01/25 13:45 Nasal Swab Influenza Types A & B (PRECIOUS) - Final
Negative for Influenza A & B, NAAT
Negative results must be combined with clinical observations
and patient history.
Nucleic Acid Amplification test (NAAT)performed on the
[employer] platform.
Diagnostic Testing:
Physical Exam
-
HEENT: Normocephalic and Anicteric
Cardiovascular: S1/S2 and Peripheral Edema (negative)
Respiratory: Wheeze (negative), Rales (negative), Rhonchi (negative) and Other (Diminished breath sounds on left hemithorax from base to middle lung field)
GI: Soft, Non Distended, Non Tender and Normal Bowel Sounds
Neurology: Awake, Alert and Tremors (negative)
Skin: Warm and Dry
General: Respiratory Distress (negative), Comfortable, Fever (negative) and Chills (negative)
Assessment
-
Assessment: 75-year-old male with a past medical history of CAD s/p CABG + coronary stent, history of prostate cancer s/p XRT + prostatectomy, history of soft tissue cancer of the back in the 1980s s/p resection (patient says it is due to
herbicides + agent orange while in the ), hypertension, hypocalcemia, NIDDM, left pleural effusion with suspected mesothelioma, bifascicular block, history of TIA, and former tobacco smoker who presents with shortness of breath, lower
extremity edema, wheezing and episode of syncope. Patient had passed out in January and saw his electrical and instrumentation manager at [facility] who recommended permanent pacemaker. CXR obtained showing a moderate-sized left pleural effusion. CT chest obtained
showing a moderate loculated left pleural effusion with left lower lobe consolidation likely due to atelectasis with inability to rule out developing pneumonia. Also a large left thyroid nodule. Of note, patient had a thoracentesis on 02/10 and
02/11/2025, showing exudative fluid with cytopathology suspicious for malignant mesothelioma. Due to this recurrence of pleural fluid, pulmonary service now consulted for additional recommendations.
Chronic conditions [employer] [facility]ER: CAD s/p CABG + coronary stent, history of prostate cancer s/p XRT + prostatectomy, history of soft tissue cancer of the back in the 1980s s/p resection (patient says it is due to herbicides + agent orange while in the
), hypertension, hypocalcemia, NIDDM, left pleural effusion with suspected mesothelioma, bifascicular block, history of TIA, former tobacco smoker, kidney stones
Impression:
#Left-sided loculated pleural effusion with suspected mesothelioma
#Large left thyroid nodule
#Syncope with bifascicular block
#Hypokalemia
#Severe hepatic fatty infiltration
#History of prostate cancer s/p XRT + prostatectomy
Plan:
- Based on patient's current CXR from 03/01, there has been reaccumulation of fluid compared to prior CXR from 02/11/2025
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
- Oncology consulted and pleural biopsy is recommended; PSA level to be checked
- Will see if IR can perform this pleural Bx otherwise will consult CT surgery
- Given patient's SOB with at least moderate-sized pleural effusion, will have IR perform thoracentesis in the interim period to at least give the patient symptomatic relief
- Continue aspiration precautions
- Given that he was wheezing, continue with scheduled DuoNebs TID (although not currently bronchospastic)
- Denies prior history of lung disease, was a former smoker but overall 10 years, quit in the 1970s
- had exposure to agent orange in the past, denies family history of lung disease
- Patient is currently on room air, breathing comfortably and saturating 98%
- Maintain SpO2 >90-94% with supplemental O2 as needed
- Recommend nonurgent thyroid ultrasound to further evaluate left-sided thyroid nodule
- Defer pacemaker decision to cardiology - EP consult pending
- prn nebulized bronchodilators - not currently bronchospastic
- Incentive spirometer encouraged q1hr while awake
- Replete electrolytes with K>4, Mg>2
- Trend H/H and transfuse if needed to keep Hb>7g/dL; keep plt>20k, unless there is concern for bleeding then keep plt>50k
- Maintain euglycemia with goal BG >100 and <180
- DVT ppx
Pulmonary service will continue to follow along.
Data:
CT chest with IV contrast 03/01/2025:
Moderate loculated left pleural effusion.
Moderate left lower lobe consolidation probably atelectasis. Developing pneumonia not excluded.
Large left thyroid nodule. Nonurgent thyroid ultrasound recommended if not previously evaluated.
Severe hepatic fatty infiltration
Patient was seen and evaluated on 03/01/2025. Total time spent today was 58 minutes for this encounter. Time includes reviewing laboratory test/imaging results, reviewing pertinent medical records, obtaining and reviewing medical history,
performing an appropriate exam, ordering medications, tests and procedures. Time also includes documentation of this encounter, coordinating patient care and communicating with other healthcare professionals. Total time does not include separately
billed tests performed on this date of service.
[2025-03-01 17:35] LABS: Glucose - Point of Care 227 mg/dl (70-99)
[2025-03-01] MEDS: LOVENOX 40 MG SC (18:44)
[2025-03-01] MEDS: XALATAN OPHTHALMIC SOLUTION 1 DROP BOTH EYES (18:44)
[2025-03-01] MEDS: NOVOLOG FLEXPEN-LOW RESISTANCE SC (18:44)
[2025-03-01] MEDS: DITROPAN 10 MG PO (19:50)
[2025-03-01] MEDS: PROTONIX 40 MG PO (19:50)
[2025-03-01 21:29] LABS: Glucose - Point of Care 150 mg/dl (70-99)
--- NOTE | 2025-03-01 23:21 | PTCARENOTE ---
Pt. rec'd from previous shift AAOx3, VSS, NSR on the monitor. Lungs diminished throughout with some anterior expiratory wheezes, pulse ox 95-96% on RA, dry cough present. Pt. OOB with standby assist only, gait steady. Currently watching TV.
[2025-03-02] VITALS (9 sets, daily range): BP systolic 131–165; BP diastolic 72–88; PULSE 61–73; BMI 25.8
[2025-03-02 03:53] LABS: Hematocrit 35.2 % (39.0-52.0); Hemoglobin 12.5 g/dL (13.0-18.0); Mean Corp Hgb Conc. 35.5 g/dL (33.0-37.0); Mean Corpuscular Volume 84.6 fL (80.0-94.0); Nucleated Red Blood Cells % 0 % (-); Platelet Count 329 10^3/uL (130-400); Red Cell Dist. Width 12.8 % (11.5-14.5)
[2025-03-02 04:23] LABS: ALT (SGPT) 31 U/L (0-50); AST (SGOT) 33 U/L (17-59); Albumin 3.6 g/dl (3.5-5.0); Alkaline Phosphatase 53 U/L (38-126); Blood Urea Nitrogen 12 mg/dl (9-20); Calcium 9.5 mg/dl (8.4-10.2); Carbon Dioxide 25 mmol/L (22-30); Chloride 105 mmol/L (98-107); Estimated Creatinine Clearance 79 ml/min; Glucose 130 mg/dl (70-99); Magnesium 2.0 mg/dl (1.6-2.3); Potassium 3.4 mmol/L (3.5-5.1); Sodium 138 mmol/L (135-145); Total Protein 6.5 g/dl (6.3-8.2); eGFR > 60.00
--- NOTE | 2025-03-02 07:49 | W.PN.HOSP.TC ---
Addendum entered and electronically signed by Hoang Olmedo MD 03/02/25 13:30:
#Large left thyroid nodule.
Nonurgent thyroid ultrasound recommended as outpatient
Original Note:
Today's Communication/Plan
-
see PN
Assessment / Plan
Assessment / Plan
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
pleural effusion. Patient recently d/c from managed for syncope and pleural effusion with path highly suspicious for malignant mesothelioma cells. Not hypoxic on RA upon admission
A/P:
#RBBB
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
#CAD, stable s/p CABG
#Essential HTN
Cardiology consult: eval for PPM
Telemetry
COnt home meds
avoid BB
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
#Hx of prostate CA s/p RT
Apparently patient with exposure to agent orange
Oncology consult: check PSA, consideration for pleural biopsy
Pulm consult
IRAD: repeat thoracentesis
#Hypokalemia
most lieekly 2/2 HCTZ
replete and follow
#DM type 2 with circulatory complications
Accuchecks, Insulin SS, DM diet
HgbA1c 7.8% as of Jan 2025
#GERD
#Urinary urgency
#HLD
#Glaucoma
cont home meds
#LEXY
on CPAP
DVT ppx SCDs
Full code
I have spent at least 59min reviewing chart, test results, communication with consultants and providing direct patient care
Anticipated Discharge: > 48 hours
Subjective/Interval History
-
Date of Service: March 02, 2025
Objective Data
-
Labs:
Laboratory Results
03/02/25
03:43
WBC 5.4
Hgb 12.5 L
Hct 35.2 L
Plt Count 329
Sodium 138
Potassium 3.4 L
Chloride 105
Carbon Dioxide 25
BUN 12
Creatinine 0.8
Glucose 130 H
Calcium 9.5
Total Bilirubin 0.9
AST 33
ALT 31
Alkaline Phosphatase 53
Vital Signs:
Vital Signs
Temp Pulse Resp BP Pulse Ox
97.5 F 60 20 138/72 97
03/02/25 03:29 03/02/25 06:11 03/02/25 03:29 03/02/25 06:11 03/02/25 03:29
I&O
03/01/25 03/02/25 03/03/25
06:59 06:59 06:59
Intake Total 480 / 480
Output Total 400 / 400
Balance 80 / 80
Review of Systems
-
History Source: Patient
All other systems: Reviewed and negative
Physical Exam
-
General: No Apparent Distress
HEENT: Normocephalic
Respiratory: Decreased Breath Sounds
Cardiac: Regular Rhythm
GI: Soft, Nontender and Nondistended
Musculoskeletal: No Clubbing, No Cyanosis and No Edema
Neuro: Awake, Alert, Oriented and AO x 3
Psych: Calm
[2025-03-02] MEDS: NORVASC 5 MG PO (07:59)
[2025-03-02] MEDS: KCL 40 MEQ PO (07:59)
[2025-03-02] MEDS: ASPIR LOW (ENTERIC COATED) 81 MG PO (08:00)
[2025-03-02] MEDS: CRESTOR 2.5 MG PO (08:00)
[2025-03-02] MEDS: DITROPAN 10 MG PO ×2 (08:00→19:44)
[2025-03-02] MEDS: PROTONIX 40 MG PO ×2 (08:00→19:45)
[2025-03-02] MEDS: MAGNESIUM OXIDE 400 MG PO (08:00)
[2025-03-02] MEDS: ORETIC 25 MG PO (08:01)
[2025-03-02] MEDS: COZAAR 100 MG PO (08:17)
[2025-03-02 08:26] LABS: Glucose - Point of Care 149 mg/dl (70-99)
[2025-03-02] MEDS: DUONEB 3 ML INH ×3 (08:33→19:10)
[2025-03-02] MEDS: NOVOLOG FLEXPEN-LOW RESISTANCE SC ×2 (09:14→16:28)
--- NOTE | 2025-03-02 10:13 | PTCARENOTE ---
Assumed care of the pt @0700. Pt is AAOx3 SB/SR with PAC's and PVC's on the monitor VSS Lungs diminished. Pt is independent in the room call bear within reach.
[2025-03-02 11:44] LABS: Glucose - Point of Care 185 mg/dl (70-99)
[2025-03-02] MEDS: NOVOLOG FLEXPEN-LOW RESISTANCE 1 UNITS SC (12:24)
--- NOTE | 2025-03-02 14:27 | W.PN.PUL3 ---
Today's Communication / Plan
-
L-sided thora pending
Oncology also rec'd pleural Bx - will see if IR can perform otherwise would rec'd CT surgery consult
Recommend non-urgent thyroid ultrasound to further evaluate left-sided thyroid nodule
DuoNebs
Defer pacemaker decision to cardiology - EP consult pending
Pain control
Pulmonary service to continue to follow along
Assessment
-
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
herbicides + agent orange while in the ), hypertension, hypocalcemia, NIDDM, left pleural effusion with suspected mesothelioma, bifascicular block, history of TIA, and former tobacco smoker who presents with shortness of breath, lower
extremity edema, wheezing and episode of syncope. Patient had passed out in January and saw his chemical production machine operator at [facility] who recommended permanent pacemaker. CXR obtained showing a moderate-sized left pleural effusion. CT chest obtained
showing a moderate loculated left pleural effusion with left lower lobe consolidation likely due to atelectasis with inability to rule out developing pneumonia. Also a large left thyroid nodule. Of note, patient had a thoracentesis on 02/10 and
02/11/2025, showing exudative fluid with cytopathology suspicious for malignant mesothelioma. Due to this recurrence of pleural fluid, pulmonary service now consulted for additional recommendations.
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
), hypertension, hypocalcemia, NIDDM, left pleural effusion with suspected mesothelioma, bifascicular block, history of TIA, former tobacco smoker, kidney stones
Impression:
#Left-sided loculated pleural effusion with suspected mesothelioma
#Large left thyroid nodule
#Syncope with bifascicular block
#Hypokalemia
#Severe hepatic fatty infiltration
#History of prostate cancer s/p XRT + prostatectomy
Plan:
- Based on patient's current CXR from 03/01, there has been reaccumulation of fluid compared to prior CXR from 02/11/2025
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
- Oncology consulted and pleural biopsy is recommended; PSA level pending
- Will see if IR can perform this pleural Bx otherwise recommend CT surgery consult
- Given patient's SOB with at least moderate-sized pleural effusion, will have IR perform thoracentesis in the interim period to at least give the patient symptomatic relief
- Continue aspiration precautions
- Given that he was wheezing, continue with scheduled DuoNebs TID (although not currently bronchospastic)
- Denies prior history of lung disease, was a former smoker but overall 10 years, quit in the 1970s
- had exposure to agent orange in the past, denies family history of lung disease
- Patient is currently on room air, breathing comfortably and saturating 98%
- Maintain SpO2 >90-94% with supplemental O2 as needed
- Recommend non-urgent thyroid ultrasound to further evaluate left-sided thyroid nodule
- Defer pacemaker decision to cardiology - EP consult pending
- prn nebulized bronchodilators - not currently bronchospastic
- Incentive spirometer encouraged q1hr while awake
- Replete electrolytes with K>4, Mg>2
- Trend H/H and transfuse if needed to keep Hb>7g/dL; keep plt>20k, unless there is concern for bleeding then keep plt>50k
- Maintain euglycemia with goal BG >100 and <180
- DVT ppx
Pulmonary service will continue to follow along.
Data:
CT chest with IV contrast 03/01/2025:
Moderate loculated left pleural effusion.
Moderate left lower lobe consolidation probably atelectasis. Developing pneumonia not excluded.
Large left thyroid nodule. Nonurgent thyroid ultrasound recommended if not previously evaluated.
Severe hepatic fatty infiltration
Total time spent today was 38 minutes for this encounter. Time includes reviewing laboratory test/imaging results, reviewing pertinent medical records, obtaining and reviewing medical history, performing an appropriate exam, ordering medications,
tests and procedures. Time also includes documentation of this encounter, coordinating patient care and communicating with other healthcare professionals. Total time does not include separately billed tests performed on this date of service.
Subjective Data
-
Date of Service:
Date of Service: March 02, 2025
Chief Complaint: Pulmonary Follow Up
Subjective:
Pt seen and evaluated this afternoon (late note entry). Patient is on room air breathing comfortably. No acute events reported overnight.
Review of Systems
General: Other (Negative unless mentioned above)
Objective Data
Data Reviewed
Vital Signs / I&O / Oxygen:
Vital Signs
Temp Pulse Resp BP Pulse Ox
98.2 F 93 18 137/72 98
03/02/25 11:46 03/02/25 13:31 03/02/25 13:31 03/02/25 11:45 03/02/25 11:46
Intake and Output
03/01/25 03/02/25 03/03/25
06:59 06:59 06:59
Intake Total 480 / 480
Output Total 400 / 400
Balance 80 / 80
SaO2 98
Physical Exam
General: Respiratory Distress (negative), Comfortable, Chills (negative) and Sweats (negative)
HEENT: Normocephalic and Anicteric
Cardiovascular: S1-S2 and Peripheral Edema (negative)
Respiratory: Wheeze (negative), Crackles (negative), Rhonchi (negative), Non-Labored Respirations, Stridor (negative) and Other (diminished breath sounds on left hemithorax from base to middle lung field)
GI: Soft, Non Distended, Non Tender and Normal Bowel Sounds
Neurology: Awake, Alert, Oriented and Tremors (negative)
Skin: Warm, Dry, Cyanosis (negative) and Jaundice (negative)
Labs/Micro/Reports
Lab Data
03/02/25 03:43
03/02/25 03:43
Microbiology
03/01/25 13:45 Nasal Swab Influenza Types A & B (PRECIOUS) - Final
Negative for Influenza A & B, NAAT
Negative results must be combined with clinical observations
and patient history.
Nucleic Acid Amplification test (NAAT)performed on the
[employer] platform.
[2025-03-02] MEDS: XALATAN OPHTHALMIC SOLUTION 1 DROP BOTH EYES (16:23)
[2025-03-02 16:28] LABS: Glucose - Point of Care 147 mg/dl (70-99)
[2025-03-02 22:26] LABS: Glucose - Point of Care 197 mg/dl (70-99)
[2025-03-03] VITALS (11 sets, daily range): BP systolic 75–146; BP diastolic 70–92; PULSE 73; BMI 25.9
--- NOTE | 2025-03-03 01:13 | PTCARENOTE ---
Received pt @ change of shift. AAOx3, VSS-- NSR on monitor with BBB. Denies CP or SOB @ this time. Discussed plan of care. Pt verbalizes understanding. Plan of care ongoing. Call bear within reach.
[2025-03-03 05:13] LABS: Hematocrit 37.4 % (39.0-52.0); Hemoglobin 13.2 g/dL (13.0-18.0); Mean Corp Hgb Conc. 35.3 g/dL (33.0-37.0); Mean Corpuscular Volume 87.2 fL (80.0-94.0); Nucleated Red Blood Cells % 0 % (-); Platelet Count 361 10^3/uL (130-400); Red Cell Dist. Width 13.0 % (11.5-14.5)
[2025-03-03 05:42] LABS: ALT (SGPT) 42 U/L (0-50); AST (SGOT) 43 U/L (17-59); Albumin 4.0 g/dl (3.5-5.0); Alkaline Phosphatase 56 U/L (38-126); Blood Urea Nitrogen 14 mg/dl (9-20); Calcium 9.6 mg/dl (8.4-10.2); Carbon Dioxide 27 mmol/L (22-30); Chloride 101 mmol/L (98-107); Estimated Creatinine Clearance 63 ml/min; Glucose 148 mg/dl (70-99); Potassium 3.4 mmol/L (3.5-5.1); Sodium 137 mmol/L (135-145); Total Protein 7.0 g/dl (6.3-8.2); eGFR > 60.00
[2025-03-03 06:12] LABS: PSA, Total - Diagnostic 0.17 ng/ml (0.0-4.0)
[2025-03-03 07:51] LABS: Glucose - Point of Care 154 mg/dl (70-99)
[2025-03-03] MEDS: NOVOLOG FLEXPEN-LOW RESISTANCE 1 UNITS SC ×2 (08:00→12:13)
[2025-03-03] MEDS: DITROPAN 10 MG PO ×2 (08:14→19:36)
[2025-03-03] MEDS: KCL 20 MEQ PO (08:14)
[2025-03-03] MEDS: NORVASC 5 MG PO (08:14)
[2025-03-03] MEDS: PROTONIX 40 MG PO ×2 (08:15→19:36)
[2025-03-03] MEDS: MAGNESIUM OXIDE 400 MG PO (08:15)
[2025-03-03] MEDS: ASPIR LOW (ENTERIC COATED) 81 MG PO (08:15)
[2025-03-03] MEDS: ORETIC 25 MG PO (08:15)
[2025-03-03] MEDS: CRESTOR 2.5 MG PO (08:17)
[2025-03-03] MEDS: COZAAR 100 MG PO (08:18)
[2025-03-03] MEDS: DUONEB INH (08:31)
--- NOTE | 2025-03-03 09:12 | W.PN.PUL3 ---
Addendum entered and electronically signed by Florinda Clayton, DO 03/03/25 13:47:
Discussed case with IR, no mass to biopsy
Cancel consult, Onc aware
Original Note:
Today's Communication / Plan
-
No new complaints, post thora but not sure if he notes any changes
Reconsult IR for pleural biopsy per onc
Cards follow up for pacer implant timing as well
He had appt to see us on 03/04 but this will be rescheduled while inpatient
Assessment
-
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
orange while in the ), hypertension, hypocalcemia, NIDDM, left pleural effusion with suspected mesothelioma, bifascicular block, history of TIA, and former tobacco smoker who presents with shortness of breath, lower extremity edema,
wheezing and episode of syncope. Patient had passed out in January and saw his head grease maker at [facility] who recommended permanent pacemaker. CXR obtained showing a moderate-sized left pleural effusion. CT chest obtained showing a
moderate loculated left pleural effusion with left lower lobe consolidation likely due to atelectasis with inability to rule out developing pneumonia. Also a large left thyroid nodule. Of note, patient had a thoracentesis on 02/10 and 02/11/2025,
showing exudative fluid with cytopathology suspicious for malignant mesothelioma. Due to this recurrence of pleural fluid, pulmonary service now consulted for additional recommendations.
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
Large left thyroid nodule
Syncope with bifascicular block
Hypokalemia
Severe hepatic fatty infiltration
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
CAD status post triple-vessel CABG in 2012, history of stent placement
History of prostate cancer status post XRT and resection/Prostatectomy
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
HTN
Hypercholesterolemia
NIDDM
Former smoker
Kidney stones
Plan:
Based on patient's current CXR from 03/01, there has been reaccumulation of fluid compared to prior CXR from 02/11/2025
Patient's previous thoracentesis on 02/10/2025 had concerning cytopathology which was positive for malignant mesothelioma (homozygous deletion of CDKN2A/B)
Oncology consulted and pleural biopsy is recommended; PSA level pending
Will see if IR can perform this, he underwent thora only today 03/03
We will re-consult for biopsy
Continue aspiration precautions
Given that he was wheezing, continue with scheduled DuoNebs TID (although not currently bronchospastic)
Denies prior history of lung disease, was a former smoker but overall 10 years, quit in the 1970s
Had exposure to agent orange in the past, denies family history of lung disease
Patient is currently on room air, breathing comfortably and saturating 98%
Maintain SpO2 >90-94% with supplemental O2 as needed
Recommend non-urgent thyroid ultrasound to further evaluate left-sided thyroid nodule
Oncology following, defer w/u to them
Defer pacemaker decision to cardiology - EP consult pending
This is likely to happen this admission
- prn nebulized bronchodilators - not currently bronchospastic
- Incentive spirometer encouraged q1hr while awake
- Replete electrolytes with K>4, Mg>2
- Trend H/H and transfuse if needed to keep Hb>7g/dL; keep plt>20k, unless there is concern for bleeding then keep plt>50k
- Maintain euglycemia with goal BG >100 and <180
- DVT ppx
Pulmonary service will continue to follow along.
Data:
CT chest with IV contrast 03/01/2025: Moderate loculated left pleural effusion. Moderate left lower lobe consolidation probably atelectasis. Developing pneumonia not excluded. Large left thyroid nodule. Nonurgent thyroid ultrasound recommended if
not previously evaluated. Severe hepatic fatty infiltration
[facility] 01/03/23: 1: Systemic hypertension
2: Normal left ventricular function with EF 58%
3. Multivessel [place] CAD with widely patent KELLEY-LAD and SVG-OM2-OM 3 bypass grafts. The angiogram is essentially unchanged compared with the August 2019 study. The patient is very well revascularized
4. Continue medical therapy and risk factor modification efforts. Given his symptoms suggesting esophageal inflammation, we will discontinue Plavix and treat with aspirin monotherapy
Total time spent today was 51 minutes for this encounter. Time includes reviewing laboratory test/imaging results, reviewing pertinent medical records, obtaining and reviewing medical history, performing an appropriate exam, ordering medications,
tests and procedures. Time also includes documentation of this encounter, coordinating patient care and communicating with other healthcare professionals. Total time does not include separately billed tests performed on this date of service.
Subjective Data
-
Date of Service:
Date of Service: March 03, 2025
Chief Complaint: Pulmonary Follow Up
Subjective:
Doing well in terms of SOB, no new complaints
Awaiting pacer placement
Objective Data
Data Reviewed
Vital Signs / I&O / Oxygen:
Vital Signs
Temp Pulse Resp BP Pulse Ox
98.6 F 80 20 143/75 95
03/03/25 08:50 03/03/25 08:50 03/03/25 08:50 03/03/25 08:50 03/03/25 08:50
Intake and Output
03/02/25 03/03/25 03/04/25
06:59 06:59 06:59
Intake Total 480 / 480 480 / 480
Output Total 400 / 400
Balance 80 / 80 480 / 480
SaO2 95
Physical Exam
General: Respiratory Distress (negative), Comfortable, Chills (negative) and Sweats (negative)
HEENT: Normocephalic and Anicteric
Cardiovascular: S1-S2 and Peripheral Edema (negative)
Respiratory: Wheeze (negative), Crackles (negative), Rhonchi (negative), Non-Labored Respirations, Stridor (negative) and Other (diminished breath sounds on left hemithorax from base to middle lung field)
GI: Soft, Non Distended, Non Tender and Normal Bowel Sounds
Neurology: Awake, Alert, Oriented and Tremors (negative)
Skin: Warm, Dry, Cyanosis (negative) and Jaundice (negative)
Labs/Micro/Reports
Lab Data
03/03/25 04:46
03/03/25 04:46
Microbiology
03/01/25 13:45 Nasal Swab Influenza Types A & B (PRECIOUS) - Final
Negative for Influenza A & B, NAAT
Negative results must be combined with clinical observations
and patient history.
Nucleic Acid Amplification test (NAAT)performed on the
[employer] platform.
--- NOTE | 2025-03-03 09:42 | W.PN.ONC2 ---
Today's Communication / Plan
-
PSA wnl.
PD-L1 to be completed on previous fluid cytology.
CT A/P with IV & oral contrast.
Impression
Impression
Recurrent left pleural effusion s/p multiple thoracentesis; pathology confirms mesothelioma, pending staging and further cytology testing
Plan
Plan
PSA wnl.
Reviewed malignant mesothelioma pleura NCCN guidelines and ordered PD-L1 to be completed on previous fluid cytology.
Ordered CT A/P with IV & oral contrast to complete staging and guide OP treatment plan.
Subjective/Objective
Chief Complaint
SOB 2/2 pleural mesothelioma
Subjective
- Thoracentesis this morning
- Overall, doing better today from a SOB POV
- Complains of neuropathy in his legs
Vital Signs:
Vital Signs
Temp Pulse Resp BP Pulse Ox
98.6 F 80 20 143/75 95
03/03/25 08:50 03/03/25 08:50 03/03/25 08:50 03/03/25 08:50 03/03/25 08:50
Lab Results:
Laboratory Data
WBC 5.9 10^3/uL (4.8-10.8) 03/03/25 04:46
Hgb 13.2 g/dL (13.0-18.0) 03/03/25 04:46
Plt Count 361 10^3/uL (130-400) 03/03/25 04:46
PT 15.5 Sec (11.4-14.6) H 03/01/25 11:50
INR 1.22 03/01/25 11:50
APTT 77.6 Sec (23.4-35.0) H 03/01/25 11:50
eGFR > 60.00 03/03/25 04:46
Physical Exam
HEENT: Moist Mucous Membranes
Cardiology: Normal Sinus Rhythm and Other (needs a PM)
Pulmonary: Clear
GI: Soft
Review of Systems
Review of Systems
Respiratory: Reports Dyspnea
Neurological: Reports Other (BLLE neuropathy)
Orders
Orders
- CT A/P w/ IV and oral contrast for staging
[2025-03-03 10:37] LABS: Body Fluid Second Tech EF
--- NOTE | 2025-03-03 11:03 | W.PN.CARDCBS ---
Addendum entered and electronically signed by Ismael Villafana MD 03/03/25 14:15:
75-year-old man service connected for agent orange exposure, with 4 syncopal episodes in the last several months, most recently prior to [place], here in the hospital, with standing, also 1 episode of probable cough syncope, 2 episodes occurred
at rest. He has a LINQ at end of service, longstanding right bundle and left anterior fascicular block, no second-degree heart block documented, had been referred for pacemaker implantation. Has known mesothelioma and has undergone thoracentesis.
Was hospitalized for shortness of breath in January, Underwent thoracentesis for 700 mL of exudative left pleural effusion, and then 2000 mL.
Current medications: Amlodipine 5 mg a day, aspirin 81 mg a day, hydrochlorothiazide 25 mg daily, losartan 100 mg a day, magnesium, pantoprazole, Ditropan, rosuvastatin, Xalatan, albuterol, potassium
137/70, pulse 73, respiratory rate 16, afebrile, sats are 96%, weight is 79.6 kg, diminished breath sounds left base, regular rate and rhythm with soft murmur,
CT scan March 01: Moderate left lower lobe consolidation, possible pneumonia, large thyroid nodule, fatty infiltration
Chest x-ray left pleural effusion
ECG: Sinus rhythm, right bundle branch block, left anterior fascicular block
Hemoglobin 13.2, BUN and creatinine are 14 and 1.0, potassium is 3.4
Recently diagnosed mesothelioma with left pleural effusion requiring multiple thoracenteses
Recurrent syncope/right bundle branch block and left anterior fascicular block
plan for pacemaker on 5CAD
s/p CABG x3 in 2012
s/p RCA PCI 12/2017
catheterization 2022 with patent bypass graftsh/o TIA
Hypertension
Diabetes
GERD
Hypercholesterolemia
PVD
Sleep apnea on BiPAP
Echo 01/2024: Ejection fraction 60%
Normal PET CT stress test March 2022 and February 2024
Plan:
Challenging situation, given history of syncope in the setting of bifascicular block with recently diagnosed mesothelioma but no documentation of second-degree AV block. Pacemaker implantation had been scheduled.
At this point, before proceeding with pacemaker implantation it would be helpful to have clarity regarding his mesothelioma, prognosis, etc. Will need guidance from oncology and pulmonary in this regard.
We could consider implanting LINQ monitor and explanting LINQ at end of service as an alternative to pacemaker implantation.
Await input from oncology and pulmonary as to patient's 1 year survival.
Original Note:
Today's Communication / Plan
-
Continue to follow on telemetry. No recurrent syncope.
Pending prognosis/clinical status w/ mesothelioma, timing of PPM to be discussed. Currently scheduled 03/11.
Impression / Plan
-
PCP: Dr. Elvia Zuniga ([facility])
Varnisher Dr. Rodriguez ([facility])
Assessment:
Hypoxia/shortness of breath
Moderate left pleural effusion
h/o mesothelioma
Recurrent syncope/right bundle branch block and left anterior fascicular block
plan for pacemaker on 03/11/2025
CAD
s/p CABG x3 in 2012
s/p RCA PCI 12/2017
catheterization 2022 with patent bypass grafts
h/o TIA
Hypertension
Diabetes
GERD
Hypercholesterolemia
PVD
Sleep apnea on BiPAP
Echo 01/2024: Ejection fraction 60%
Normal PET CT stress test March 2022 and February 2024
Plan:
-Presented with SOB. Admitted with L pleural effusion. ProBNP 471, no signs of CHF on exam.
-Underwent thoracentesis this AM. Reports breathing is not significantly changed.
-Known h/o mesothelioma. Pulmonology and oncology following. For possible pleural biopsy per pulmonology.
-Patient has had recurrent syncope noted as OP and is currently scheduled for PPM implantation 03/11/2025. Pending clinical status/prognosis of mesothelioma, timing to be discussed.
-On review of tele no pauses noted. Did have brief run of atach this AM. Asymptomatic.
-K 3.4, now on KCl 20 mEq daily.
HPI: Mark has a history of mesothelioma, RCA stent in December 2017, three-vessel CABG with catheterization in 2022 with patent bypass grafts, PVD, hypertension, TIA, right bundle branch block and left anterior fascicular block with recurrent
syncope, diabetes. He had been seen by his pear picker in the past week and was arranged for pacemaker implant at [place] to be done on March 11, 2025. He presents with shortness of breath and wheezing. He notes that he has had several
episodes of syncope without warning. He was to have a pacemaker placed as an outpatient on March 11, 2025.
Progress Note - Varnisher
Subjective
Date of Service: March 03, 2025
No recurrent syncope. SOB
Objective
Labs:
03/03/25 04:46
03/03/25 04:46
Labs
Hgb 13.2 g/dL (13.0-18.0) 03/03/25 04:46
Hct 37.4 % (39.0-52.0) L 03/03/25 04:46
Plt Count 361 10^3/uL (130-400) 03/03/25 04:46
PT 15.5 Sec (11.4-14.6) H 03/01/25 11:50
INR 1.22 03/01/25 11:50
APTT 77.6 Sec (23.4-35.0) H 03/01/25 11:50
Sodium 137 mmol/L (135-145) 03/03/25 04:46
Potassium 3.4 mmol/L (3.5-5.1) L 03/03/25 04:46
BUN 14 mg/dl (9-20) 03/03/25 04:46
Creatinine 1.0 mg/dL (0.7-1.3) 03/03/25 04:46
Glucose 148 mg/dl (70-99) H 03/03/25 04:46
Vital Signs and I&O:
Vital Signs
Temp Pulse Resp BP Pulse Ox
98.6 F 75 16 137/70 96
03/03/25 08:50 03/03/25 10:10 03/03/25 10:10 03/03/25 10:10 03/03/25 09:55
Vital Signs
Temp Pulse Resp BP Pulse Ox
98.6 F 75 16 137/70 96
03/03/25 08:50 03/03/25 10:10 03/03/25 10:10 03/03/25 10:10 03/03/25 09:55
Intake & Output
03/01/25 03/02/25 03/03/25 03/04/25
06:59 06:59 06:59 06:59
Intake Total 480 / 480 480 / 480
Output Total 400 / 400
Balance 80 / 80 480 / 480
Physical Exam
Physical Exam
GEN: No distress
LUNGS: no audible wheeze
CV: SR on tele
[2025-03-03] MEDS: DUONEB 3 ML INH ×2 (11:04→18:41)
--- NOTE | 2025-03-03 11:39 | CM ---
Reviewed chart. Met with Mr. Wells to review discharge plans. He states prior to admission he resides with his spouse and son in a two story home with three steps to enter. He states he has a full flight of steps to get to bedroom/full bathroom.
He states he has a powder room on the first floor. He states prior to admission he was independent with ambulation and adls. He states he has a CPAP Machine at home and no other DME. He states he uses the [facility] for his medications. Medical
work-up in progress. The discharge plan is to return home with his spouse and son when medically stable.
[2025-03-03 12:03] LABS: Glucose - Point of Care 162 mg/dl (70-99)
[2025-03-03] MEDS: OMNIPAQUE 50 ML PO (13:32)
--- NOTE | 2025-03-03 13:55 | PTCARENOTE ---
Pt received this am oob ad janes in the room. Denies any pain or sob. Room air sat 97%. SR, rate in the 60's to 80's with PVC's. Returned from left thoracentesis, bandaid dry and intact to left back. Npo for CT of abd/pelvis.
--- NOTE | 2025-03-03 14:06 | W.PN.HOSP.TC ---
Today's Communication/Plan
-
Assessment / Plan
Assessment / Plan
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
pleural effusion. Patient recently d/c from managed for syncope and pleural effusion with path highly suspicious for malignant mesothelioma cells. Not hypoxic on RA upon admission
A/P:
#RBBB
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
#CAD, stable s/p CABG
#Essential HTN
Cardiology consult: eval for PPM
Telemetry
Cont home meds
avoid BB
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
#Hx of prostate CA s/p RT
Apparently patient with exposure to agent orange
Oncology consult: check PSA, consideration for pleural biopsy
Pulm consult
IRAD: repeat thoracentesis
Will get ct per Onc rec
#Hypokalemia
most lieekly 2/2 HCTZ
replete and follow
#DM type 2 with circulatory complications
Accuchecks, Insulin SS, DM diet
HgbA1c 7.8% as of Jan 2025
#GERD
#Urinary urgency
#HLD
#Glaucoma
cont home meds
#LEXY
on CPAP
DVT ppx SCDs
Full code
Anticipated Discharge: 24 - 48 hours
Subjective/Interval History
-
Date of Service: March 03, 2025
Seen and examined. No new complaints. No acute overnight events.
Objective Data
-
Labs:
Laboratory Results
03/03/25
04:46
WBC 5.9
Hgb 13.2
Hct 37.4 L
Plt Count 361
Sodium 137
Potassium 3.4 L
Chloride 101
Carbon Dioxide 27
BUN 14
Creatinine 1.0
Glucose 148 H
Calcium 9.6
Total Bilirubin 0.9
AST 43
ALT 42
Alkaline Phosphatase 56
Vital Signs:
Vital Signs
Temp Pulse Resp BP Pulse Ox
97.9 F 73 16 137/70 96
03/03/25 11:33 03/03/25 11:05 03/03/25 11:33 03/03/25 10:10 03/03/25 11:33
I&O
03/02/25 03/03/25 03/04/25
06:59 06:59 06:59
Intake Total 480 / 480 480 / 480
Output Total 400 / 400
Balance 80 / 80 480 / 480
Physical Exam
-
General: Well Developed, Well Nourished and No Apparent Distress
HEENT: Normocephalic and Atraumatic
Respiratory: Decreased Breath Sounds
Cardiac: Regular Rhythm and S1/S2
GI: Soft
Genito-urinary: No Costovertebral Tender
Musculoskeletal: No Clubbing, No Cyanosis and No Edema
Neuro: Awake and AO x 3
[2025-03-03] MEDS: XALATAN OPHTHALMIC SOLUTION 1 DROP BOTH EYES (17:17)
[2025-03-03 17:20] LABS: Glucose - Point of Care 126 mg/dl (70-99)
[2025-03-03] MEDS: NOVOLOG FLEXPEN-LOW RESISTANCE SC (17:21)
[2025-03-03 22:43] LABS: Glucose - Point of Care 217 mg/dl (70-99)
[2025-03-04] VITALS (8 sets, daily range): BP systolic 132–149; BP diastolic 70–92; PULSE 70–74; BMI 26.0
--- NOTE | 2025-03-04 01:15 | PTCARENOTE ---
Received pt @ change of shift. AAOx3, VSS-- NSR w/ BBB, Long Qt, and PVCs on monitor. Puncture site from thoracentesis clean, dry, and intact. Discussed plan of care. Pt verbalizes understanding. Plan of care ongoing. Call bear within reach.
[2025-03-04 05:01] LABS: Hematocrit 35.9 % (39.0-52.0); Hemoglobin 12.8 g/dL (13.0-18.0); Mean Corp Hgb Conc. 35.7 g/dL (33.0-37.0); Mean Corpuscular Volume 85.7 fL (80.0-94.0); Nucleated Red Blood Cells % 0 % (-); Platelet Count 318 10^3/uL (130-400); Red Cell Dist. Width 12.7 % (11.5-14.5)
[2025-03-04 05:29] LABS: ALT (SGPT) 53 U/L (0-50); AST (SGOT) 55 U/L (17-59); Albumin 3.6 g/dl (3.5-5.0); Alkaline Phosphatase 52 U/L (38-126); Blood Urea Nitrogen 16 mg/dl (9-20); Calcium 9.1 mg/dl (8.4-10.2); Carbon Dioxide 25 mmol/L (22-30); Chloride 102 mmol/L (98-107); Estimated Creatinine Clearance 63 ml/min; Glucose 155 mg/dl (70-99); Potassium 3.4 mmol/L (3.5-5.1); Sodium 136 mmol/L (135-145); Total Protein 6.4 g/dl (6.3-8.2); eGFR > 60.00
[2025-03-04] MEDS: MAGNESIUM OXIDE 400 MG PO (08:16)
[2025-03-04] MEDS: ORETIC 25 MG PO (08:16)
[2025-03-04] MEDS: DITROPAN 10 MG PO ×2 (08:16→19:35)
[2025-03-04] MEDS: NORVASC 5 MG PO (08:16)
[2025-03-04] MEDS: KCL 20 MEQ PO (08:16)
[2025-03-04] MEDS: COZAAR 100 MG PO (08:17)
[2025-03-04] MEDS: CRESTOR 2.5 MG PO (08:17)
[2025-03-04] MEDS: PROTONIX 40 MG PO ×2 (08:17→19:35)
[2025-03-04] MEDS: ASPIR LOW (ENTERIC COATED) 81 MG PO (08:18)
[2025-03-04] MEDS: DUONEB INH (08:34)
[2025-03-04 09:01] LABS: Glucose - Point of Care 169 mg/dl (70-99)
--- NOTE | 2025-03-04 09:09 | W.PN.ONC2 ---
Today's Communication / Plan
-
- CT A/P 03/03 without evidence of metastatic disease within the abdomen or pelvis.
--Cystic and solid lesion in right kidney can be monitored and followed-up outpatient.
- Life expectancy from an oncology perspective is greater than 1 year. At this time, we recommend proceeding with cardiac pacemaker. We will follow-up for oncology workup & treatment for mesothelioma outpatient.
Impression
Impression
- Recurrent left pleural effusion s/p multiple thoracentesis; pathology confirms mesothelioma, CT A/P without evidence of metastasis, further cytology testing pending
- Separately, new finding on CT A/P 03/03 of 1.8 cm cystic and solid lesion in the right kidney, suspicious for renal cell carcinoma
Plan
Plan
#Pleural mesothelioma
- Follow-up PD-L1 testing results, ordered on previous fluid cytology.
- CT A/P 03/03 without evidence of metastatic disease within the abdomen or pelvis. Prominent mesenteric and retroperitoneal lymph nodes which are stable from 2013 and likely benign.
- Life expectancy from an oncology perspective is greater than 1 year. At this time would recommend proceeding with cardiac pacemaker. We will follow-up for oncology workup & treatment outpatient.
#Right renal lesion, new
- CT A/P 03/03 showing a 1.8 cm mixed cystic and solid lesion along the posterior aspect of the superior pole of the right kidney, suspicious for neoplasm such as renal cell carcinoma.
- This can be followed up and monitored outpatient.
Subjective/Objective
Chief Complaint
Syncope, SOB secondary to pleural mesothelioma
Subjective
- This morning, he is walking around his room and stating that he feels much better than yesterday. He denies shortness of breath, chest pain, dizziness, and feelings of presyncope. He states that he is usually asymptomatic throughout the day
however as the day progresses he will develop more of a cough, shortness of breath, and fatigue.
Vital Signs:
Vital Signs
Temp Pulse Resp BP Pulse Ox
97.5 F 72 16 149/81 97
03/04/25 08:11 03/04/25 08:17 03/04/25 08:11 03/04/25 08:17 03/04/25 08:11
Lab Results:
Laboratory Data
WBC 5.1 10^3/uL (4.8-10.8) 03/04/25 04:31
Hgb 12.8 g/dL (13.0-18.0) L 03/04/25 04:31
Plt Count 318 10^3/uL (130-400) 03/04/25 04:31
PT 15.5 Sec (11.4-14.6) H 03/01/25 11:50
INR 1.22 03/01/25 11:50
APTT 77.6 Sec (23.4-35.0) H 03/01/25 11:50
eGFR > 60.00 03/04/25 04:31
Physical Exam
HEENT: Moist Mucous Membranes
Cardiology: Normal Sinus Rhythm
Pulmonary: Clear
GI: Soft
Review of Systems
Review of Systems
Respiratory: Reports Cough and Other (Occasional shortness of breath, worsens throughout the day)
Orders
Orders
Orders From Last 24 Hours
03/03/25 12:25
CT Abd/pel W Iv And Oral Contr Routine
03/03/25 13:00
Iohexol [Omnipaque] See Protocol PO ONCE ONE
--- NOTE | 2025-03-04 09:16 | W.PN.PUL3 ---
Today's Communication / Plan
-
Stable on RA, no new complaints
No further procedures planned from our standpoint, can follow up on effusion as OP
We will call to reschedule his appt which was today 03/04
Further pacer/prognosis decision making deferred to cards/onc
Outpatient follow up to be arranged at discharge
Assessment
-
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
orange while in the ), hypertension, hypocalcemia, NIDDM, left pleural effusion with suspected mesothelioma, bifascicular block, history of TIA, and former tobacco smoker who presents with shortness of breath, lower extremity edema,
wheezing and episode of syncope. Patient had passed out in January and saw his venetian blind mechanic at [facility] who recommended permanent pacemaker. CXR obtained showing a moderate-sized left pleural effusion. CT chest obtained showing a
moderate loculated left pleural effusion with left lower lobe consolidation likely due to atelectasis with inability to rule out developing pneumonia. Also a large left thyroid nodule. Of note, patient had a thoracentesis on 02/10 and 02/11/2025,
showing exudative fluid with cytopathology suspicious for malignant mesothelioma. Due to this recurrence of pleural fluid, pulmonary service now consulted for additional recommendations.
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
Large left thyroid nodule
Syncope with bifascicular block
Hypokalemia
Severe hepatic fatty infiltration
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
CAD status post triple-vessel CABG in 2012, history of stent placement
History of prostate cancer status post XRT and resection/Prostatectomy
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
HTN
Hypercholesterolemia
NIDDM
Former smoker
Kidney stones
Plan:
Based on patient's current CXR from 03/01, there has been reaccumulation of fluid compared to prior CXR from 02/11/2025
Patient's previous thoracentesis on 02/10/2025 had concerning cytopathology which was positive for malignant mesothelioma (homozygous deletion of CDKN2A/B)
Oncology consulted and pleural biopsy is recommended
s/p underwent thora only today 03/03
No need for biopsy on discussion with IR and Onc 03/03
We discussed management of effusion if needed
Continue aspiration precautions
Given that he was wheezing, continue with scheduled DuoNebs TID (although not currently bronchospastic)
Denies prior history of lung disease, was a former smoker but overall 10 years, quit in the 1970s
Had exposure to agent orange in the past, denies family history of lung disease
Patient is currently on room air, breathing comfortably and saturating 98%
Maintain SpO2 >90-94% with supplemental O2 as needed
Recommend non-urgent thyroid ultrasound to further evaluate left-sided thyroid nodule
Oncology following, defer w/u to them
OP therapy recommended
Defer pacemaker decision to cardiology - EP consult pending
This is likely to happen this admission
- prn nebulized bronchodilators - not currently bronchospastic
- Incentive spirometer encouraged q1hr while awake
- Replete electrolytes with K>4, Mg>2
- Trend H/H and transfuse if needed to keep Hb>7g/dL; keep plt>20k, unless there is concern for bleeding then keep plt>50k
- Maintain euglycemia with goal BG >100 and <180
- DVT ppx
Pulmonary service will continue to follow along.
Data:
CT chest with IV contrast 03/01/2025: Moderate loculated left pleural effusion. Moderate left lower lobe consolidation probably atelectasis. Developing pneumonia not excluded. Large left thyroid nodule. Nonurgent thyroid ultrasound recommended if
not previously evaluated. Severe hepatic fatty infiltration
C 01/03/23: 1: Systemic hypertension
2: Normal left ventricular function with EF 58%
3. Multivessel [place] CAD with widely patent KELLEY-LAD and SVG-OM2-OM 3 bypass grafts. The angiogram is essentially unchanged compared with the August 2019 study. The patient is very well revascularized
4. Continue medical therapy and risk factor modification efforts. Given his symptoms suggesting esophageal inflammation, we will discontinue Plavix and treat with aspirin monotherapy
Total time spent today was 51 minutes for this encounter. Time includes reviewing laboratory test/imaging results, reviewing pertinent medical records, obtaining and reviewing medical history, performing an appropriate exam, ordering medications,
tests and procedures. Time also includes documentation of this encounter, coordinating patient care and communicating with other healthcare professionals. Total time does not include separately billed tests performed on this date of service.
Subjective Data
-
Date of Service:
Date of Service: March 04, 2025
Chief Complaint: Pulmonary Follow Up
Subjective:
Doing well, from our standpoint stable
Now on RA, no new complaints
Objective Data
Data Reviewed
Vital Signs / I&O / Oxygen:
Vital Signs
Temp Pulse Resp BP Pulse Ox
97.5 F 72 16 149/81 97
03/04/25 08:11 03/04/25 08:17 03/04/25 08:11 03/04/25 08:17 03/04/25 08:11
Intake and Output
03/03/25 03/04/25 03/05/25
06:59 06:59 06:59
Intake Total 480 / 480
Balance 480 / 480
SaO2 97
Nasal Cannula flow liters per 7
minute
Physical Exam
General: Respiratory Distress (negative), Comfortable, Chills (negative) and Sweats (negative)
HEENT: Normocephalic and Anicteric
Cardiovascular: S1-S2 and Peripheral Edema (negative)
Respiratory: Wheeze (negative), Crackles (negative), Rhonchi (negative), Non-Labored Respirations, Stridor (negative) and Other (diminished breath sounds on left hemithorax from base to middle lung field)
GI: Soft, Non Distended, Non Tender and Normal Bowel Sounds
Neurology: Awake, Alert, Oriented and Tremors (negative)
Skin: Warm, Dry, Cyanosis (negative) and Jaundice (negative)
Labs/Micro/Reports
Lab Data
03/04/25 04:31
03/04/25 04:31
Microbiology
03/03/25 09:40 Pleural Fluid Fungal Smear - Final
No yeast or fungal elements seen.
03/03/25 09:40 Pleural Fluid Fungal Culture - Preliminary
Culture in progress.
Positive cultures are reported as soon as detected.
Final report to follow in four to five weeks.
03/03/25 09:40 Pleural Fluid Gram Stain - Preliminary
03/01/25 13:45 Nasal Swab Influenza Types A & B (PRECIOUS) - Final
Negative for Influenza A & B, NAAT
Negative results must be combined with clinical observations
and patient history.
Nucleic Acid Amplification test (NAAT)performed on the
[employer] platform.
[2025-03-04] MEDS: NOVOLOG FLEXPEN-LOW RESISTANCE 1 UNITS SC ×3 (09:29→17:37)
--- NOTE | 2025-03-04 11:19 | CM ---
Reviewed chart. Met with Mr. Wells to review discharge plans. He is awaiting medical team decisions regarding care. Prior to admission he resides with his spouse and son in a two story home with three steps to enter. He has a full flight of
steps to get to bedroom/full bathroom. He has a powder room on the first floor. Prior to admission he was independent with ambulation and adls. He has a CPAP Machine at home and no other DME. He states he uses the [facility] for his medications.
Medical work-up in progress. The discharge plan is to return home with his spouse and son when medically stable.
--- NOTE | 2025-03-04 12:02 | PTCARENOTE ---
received patient this am voices no concerns. patient wanting to know if he is getting a pacemaker, deferred to cardiology. monitor shows NSR with BBB, VSS. left back has band aid from thoracentesis, D/I. lung barker have fine crackles in bases, on
RA.
[2025-03-04 12:10] LABS: Glucose - Point of Care 159 mg/dl (70-99)
--- NOTE | 2025-03-04 12:57 | W.PN.CARDCBS ---
Addendum entered and electronically signed by Mark Donohue MD 03/04/25 15:25:
Patient seen and examined
Agree with AUNG Velásquez's note and assessment
Agree with AUNG Velásquez's plan
Reviewed outpatient records and documentation of conversations between Dr. Rodriguez and Dr. Andres. Mr. Wells was here in late January after a packet of episodes of syncope typically with cough or with rising from a sitting to standing
position. He was hospitalized here for 2 episodes of the syncope although unfortunately he was not on monitoring at the time. He has an ILR implant from prior looking for atrial fibrillation and he tells me that significant pause was not seen on
device.
He currently is status post his second thoracentesis yesterday on the left side with the initial being 4 L in late January and 400 cc of fluid yesterday. He tells me that his breathing is somewhat improved. Seen at the bedside after a large lunch.
Review of his telemetry demonstrates bifascicular block right bundle branch block�left intrafascicular block with a top normal NE interval and at times appear normal in the low 200-210 ms range. He has not demonstrated any significant pauses or
signs of more advanced AV block during this hospitalization. He has a 5 beat run of NSVT and occasional ventricular bigeminy. Oncology has been evaluating him for his mesothelioma with pleural effusions and assures us that he has a life expectancy
of greater than 1 year. He may require left-sided chest wall radiation and our oncology team requested placement of a right sided device as his mesothelioma is left-sided and may require left-sided therapy.
Review of prior records demonstrates normal ejection fraction.
I sat with patient and daughter at the bedside and took time to answer all questions as well as describing device implant in detail. They were under the impression that the pacemaker would make him feel much better but I told him that it should
prevent syncopal episodes if they are related to cough but some of his mechanism appears vasovagal and sometimes even with a pacemaker in place that he may have near syncope or syncope.
I described a warning thousand risk of AK stroke and a 1% risk of pneumothorax tamponade infection or bleeding. I did tell the patient and daughter that he does not have an emergent�urgent need for pacing and he could keep his time with .
Dmitry next week as scheduled electively on the . He wants it 'while he is here 'so we will place him on the schedule for tomorrow with Dr. Andres.
Exam:
Bilateral IVs in place
Alert and oriented x 3
Nonfocal neurologically
JVP 6
Cor regular
Telemetry reviewed without evidence of advanced AV block and baseline bifascicular block
Remainder as per AUNG Velásquez's note and assessment
PCP: Dr. Elvia Zuniga ([facility])
Special Warfare Combatant Crewman Dr. Rodriguez ([facility])
Assessment:
Hypoxia/shortness of breath
Moderate left pleural effusion
s/p thoracentesis 02/10/25 & 02/11/2025 -cytology concerning for mesothelioma
Status post thoracentesis 03/03/2025h/o mesothelioma
Recurrent syncope/right bundle branch block and left anterior fascicular block
plan for pacemaker on 5CAD
s/p CABG x3 in 2012
s/p RCA PCI 12/2017
catheterization 2022 with patent bypass graftsh/o TIA
Hypertension
Diabetes
GERD
Hypercholesterolemia
PVD
Sleep apnea on BiPAP
Echo 01/2024: Ejection fraction 60%, mildly dilated left atrium. Mild concentric LVH. Mild TR.
Normal PET CT stress test March 2022 and February 2024
C 01/03/23: Multivessel [place] CAD with widely patent KELLEY-LAD and SVG-OM2-OM 3 bypass grafts. The angiogram is essentially unchanged compared with the August 2019 study. The patient is very well revascularized
Plan:
-Presented 03/01/2025 with SOB. Admitted with L pleural effusion. ProBNP 471, no signs of CHF on exam.
-Underwent thoracentesis 03/03/2025. Reports breathing is improving
-Known h/o mesothelioma. This is his second thoracentesis in the last 3 weeks. Pulmonology and oncology following. Per pulmonary patient no longer needs pleural biopsy. Oncology feels like life expectancy is greater than 1 year. I communicated
details of implant and oncology prefers a right sided implantation given his potential need for radiation to the left lung bed.
History of recurrent syncope as outpatient.
-Prior to this admission patient was scheduled for PPM implantation 03/11/[address] Andres at request of Dr. Rodriguez, his outpatient senior integration developer. Mechanism of his syncope appears to be vasovagal although some occur with cough and
occasionally cough related syncope can require pacing due to concomitant asystole. Unfortunately we have not caught any of his episodes of syncope to my knowledge on telemetry.
-Upon review of telemetry this admission no advanced AV block. Noted to have sinus rhythm with ventricular bigeminy and 7 beats of NSVT. Asymptomatic. Replete K+, add mag level to am labs
-Check echo today
- Will plan DC pacemaker implant 03/05/2025. Keep NPO after midnight. He was fed a late lunch today. as noted above per pulmonary no additional procedures planned. Oncology feels life expectancy greater than 1 year.
-K 3.4, now on KCl 20 mEq daily. Will give an additional 40 meq today with goal K+ 4-5
Appreciate input from oncology and pulmonology
Plan discussed with patient, patient's daughter at bedside, nursing, hospitalist, oncology and pulmonology
HPI: Mark has a history of mesothelioma, RCA stent in December 2017, three-vessel CABG with catheterization in 2022 with patent bypass grafts, PVD, hypertension, TIA, right bundle branch block and left anterior fascicular block with recurrent
syncope, diabetes. He had been seen by his senior integration developer in the past week and was arranged for pacemaker implant at [facility] to be done on March 11, 2025. He presents with shortness of breath and wheezing. He notes that he has had several
episodes of syncope without warning. He was to have a pacemaker placed as an outpatient on March 11, 2025.
Original Note:
Today's Communication / Plan
-
Replete potassium
Check mag level
NPO after midnight in anticipation of pacemaker implant 03/05/2025
Check echo
Continue amlodipine, hydrochlorothiazide, losartan, Crestor
Impression / Plan
-
PCP: Dr. Elvia Zuniga ([facility])
Special Warfare Combatant Crewman Dr. Rodriguez ([facility])
Assessment:
Hypoxia/shortness of breath
Moderate left pleural effusion
s/p thoracentesis 02/10/25 & 02/11/2025 -cytology concerning for mesothelioma
Status post thoracentesis 03/03/2025
h/o mesothelioma
Recurrent syncope/right bundle branch block and left anterior fascicular block
plan for pacemaker on 03/11/2025
CAD
s/p CABG x3 in 2012
s/p RCA PCI 12/2017
catheterization 2022 with patent bypass grafts
h/o TIA
Hypertension
Diabetes
GERD
Hypercholesterolemia
PVD
Sleep apnea on BiPAP
Echo 01/2024: Ejection fraction 60%, mildly dilated left atrium. Mild concentric LVH. Mild TR.
Normal PET CT stress test March 2022 and February 2024
C 01/03/23: Multivessel [place] CAD with widely patent KELLEY-LAD and SVG-OM2-OM 3 bypass grafts. The angiogram is essentially unchanged compared with the August 2019 study. The patient is very well revascularized
Plan:
-Presented 03/01/2025 with SOB. Admitted with L pleural effusion. ProBNP 471, no signs of CHF on exam.
-Underwent thoracentesis 03/03/2025. Reports breathing is improving
-Known h/o mesothelioma. Pulmonology and oncology following. Per pulmonary patient no longer needs pleural biopsy. Oncology feels like life expectancy is greater than 1 year.
History of recurrent syncope as outpatient.
-Prior to this admission patient was scheduled for PPM implantation 03/11/[address] Andres at request of Dr. Rodriguez, his outpatient senior integration developer.
-Upon review of telemetry this admission no advanced heart blocks. Noted to have sinus rhythm with ventricular bigeminy and 7 beats of NSVT. Asymptomatic. Replete K+, add mag level to am labs
-Check echo today
-Per EP anticipate DC pacemaker implant 03/05/2025. Keep NPO after midnight. As noted above per pulmonary no additional procedures planned. Oncology feels life expectancy greater than 1 year.
-K 3.4, now on KCl 20 mEq daily. Will give an additional 40 meq today with goal K+ 4-5
Appreciate input from oncology and pulmonology
Plan discussed with patient, patient's daughter at bedside, nursing, hospitalist, oncology and pulmonology
HPI: Mark has a history of mesothelioma, RCA stent in December 2017, three-vessel CABG with catheterization in 2022 with patent bypass grafts, PVD, hypertension, TIA, right bundle branch block and left anterior fascicular block with recurrent
syncope, diabetes. He had been seen by his senior integration developer in the past week and was arranged for pacemaker implant at [facility] to be done on March 11, 2025. He presents with shortness of breath and wheezing. He notes that he has had several
episodes of syncope without warning. He was to have a pacemaker placed as an outpatient on March 11, 2025.
Progress Note - Special Warfare Combatant Crewman
Subjective
Date of Service: March 04, 2025
Objective
Labs:
03/04/25 04:31
03/04/25 04:31
Labs
Hgb 12.8 g/dL (13.0-18.0) L 03/04/25 04:31
Hct 35.9 % (39.0-52.0) L 03/04/25 04:31
Plt Count 318 10^3/uL (130-400) 03/04/25 04:31
PT 15.5 Sec (11.4-14.6) H 03/01/25 11:50
INR 1.22 03/01/25 11:50
APTT 77.6 Sec (23.4-35.0) H 03/01/25 11:50
Sodium 136 mmol/L (135-145) 03/04/25 04:31
Potassium 3.4 mmol/L (3.5-5.1) L 03/04/25 04:31
BUN 16 mg/dl (9-20) 03/04/25 04:31
Creatinine 1.0 mg/dL (0.7-1.3) 03/04/25 04:31
Glucose 155 mg/dl (70-99) H 03/04/25 04:31
Vital Signs and I&O:
Vital Signs
Temp Pulse Resp BP Pulse Ox
98.3 F 85 16 132/70 96
03/04/25 11:21 03/04/25 12:00 03/04/25 11:21 03/04/25 11:23 03/04/25 11:23
Vital Signs
Temp Pulse Resp BP Pulse Ox
98.3 F 85 16 132/70 96
03/04/25 11:21 03/04/25 12:00 03/04/25 11:21 03/04/25 11:23 03/04/25 11:23
Intake & Output
03/02/25 03/03/25 03/04/25 03/05/25
06:59 06:59 06:59 06:59
Intake Total 480 / 480 480 / 480
Output Total 400 / 400
Balance 80 / 80 480 / 480
Physical Exam
Physical Exam
GEN: No distress, awake, Ox3, sitting in chair
HEENT: supple, anicteric, mmm
LUNGS: Absent breath sounds left base with crackles long-term up left lung, CTA on right
CV: Reg, S1/S2, no murmur
ABD: soft, BS+, NT/ND
EXT: No edema, clubbing or cyanosis
NEURO: Gross non-focal
SKIN: No rash, warm, dry, pink
--- NOTE | 2025-03-04 13:46 | W.PN.HOSP.TC ---
Today's Communication/Plan
-
PPM placement planned for 03/05
NPO after midnight
Assessment / Plan
Assessment / Plan
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
pleural effusion. Patient recently d/c from managed for syncope and pleural effusion with path highly suspicious for malignant mesothelioma cells. Not hypoxic on RA upon admission
General: Well Developed, Well Nourished and No Apparent Distress
HEENT: Normocephalic and Atraumatic
Respiratory: Decreased Breath Sounds
Cardiac: Regular Rhythm and S1/S2
GI: Soft
Genito-urinary: No Costovertebral Tender
Musculoskeletal: No Clubbing, No Cyanosis and No Edema
Neuro: Awake and AO x 3
A/P:
#RBBB
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
#CAD, stable s/p CABG
#Essential HTN
Cardiology consult: eval for PPM
Telemetry
Cont home meds
avoid BB
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
#Hx of prostate CA s/p RT
Apparently patient with exposure to agent orange
Oncology consult: check PSA, consideration for pleural biopsy
Pulm consult
IRAD: repeat thoracentesis
Will get ct per Onc rec
#Hypokalemia
most lieekly 2/2 HCTZ
replete and follow
#DM type 2 with circulatory complications
Accuchecks, Insulin SS, DM diet
HgbA1c 7.8% as of Jan 2025
#GERD
#Urinary urgency
#HLD
#Glaucoma
cont home meds
#LEXY
on CPAP
DVT ppx SCDs
Full code
PPM on placement 03/05
Anticipated Discharge: 24 - 48 hours
Subjective/Interval History
-
Date of Service: March 04, 2025
Seen and examined. No new complaints. No acute overnight events.
Objective Data
-
Labs:
Laboratory Results
03/04/25
04:31
WBC 5.1
Hgb 12.8 L
Hct 35.9 L
Plt Count 318
Sodium 136
Potassium 3.4 L
Chloride 102
Carbon Dioxide 25
BUN 16
Creatinine 1.0
Glucose 155 H
Calcium 9.1
Total Bilirubin 0.8
AST 55
ALT 53 H
Alkaline Phosphatase 52
Vital Signs:
Vital Signs
Temp Pulse Resp BP Pulse Ox
98.3 F 85 16 132/70 96
03/04/25 11:21 03/04/25 12:00 03/04/25 11:21 03/04/25 11:23 03/04/25 11:23
I&O
03/03/25 03/04/25 03/05/25
06:59 06:59 06:59
Intake Total 480 / 480
Balance 480 / 480
[2025-03-04] MEDS: DUONEB 3 ML INH ×2 (13:49→20:08)
[2025-03-04 14:25] LABS: Magnesium 2.0 mg/dl (1.6-2.3)
[2025-03-04 16:32] LABS: Glucose - Point of Care 181 mg/dl (70-99)
[2025-03-04] MEDS: KCL 40 MEQ PO (17:38)
[2025-03-04] MEDS: XALATAN OPHTHALMIC SOLUTION 1 DROP BOTH EYES (17:39)
--- NOTE | 2025-03-04 18:05 | PTCARENOTE ---
K 3.4 40meq ,of KCL given as ordered at 1800. patient is aware that he is NPO after midnight for pacemaker tomorrow.
--- NOTE | 2025-03-04 21:37 | PTCARENOTE ---
Received patient at change of shift. SR with a BBB on the monitor, HR in the 80s. NPO at midnight for PPM tomorrow, pt verbalizes understanding. No complaints from pt at this time, call bear within reach.
[2025-03-04 22:05] LABS: Glucose - Point of Care 283 mg/dl (70-99)
[2025-03-05] VITALS (12 sets, daily range): BP systolic 105–146; BP diastolic 72–106; PULSE 85–96; BMI 26.1
[2025-03-05 03:43] LABS: Hematocrit 39.1 % (39.0-52.0); Hemoglobin 13.6 g/dL (13.0-18.0); Mean Corp Hgb Conc. 34.8 g/dL (33.0-37.0); Mean Corpuscular Volume 86.1 fL (80.0-94.0); Nucleated Red Blood Cells % 0 % (-); Platelet Count 342 10^3/uL (130-400); Red Cell Dist. Width 13.1 % (11.5-14.5)
[2025-03-05 04:07] LABS: ALT (SGPT) 65 U/L (0-50); AST (SGOT) 63 U/L (17-59); Albumin 4.1 g/dl (3.5-5.0); Alkaline Phosphatase 55 U/L (38-126); Blood Urea Nitrogen 17 mg/dl (9-20); Calcium 9.7 mg/dl (8.4-10.2); Carbon Dioxide 26 mmol/L (22-30); Chloride 103 mmol/L (98-107); Estimated Creatinine Clearance 63 ml/min; Glucose 154 mg/dl (70-99); Potassium 3.6 mmol/L (3.5-5.1); Sodium 138 mmol/L (135-145); Total Protein 7.2 g/dl (6.3-8.2); eGFR > 60.00
[2025-03-05] MEDS: DUONEB 3 ML INH ×3 (07:52→19:49)
[2025-03-05 08:35] LABS: Glucose - Point of Care 166 mg/dl (70-99)
[2025-03-05] MEDS: KCL 20 MEQ PO (08:37)
[2025-03-05] MEDS: NOVOLOG FLEXPEN-LOW RESISTANCE 1 UNITS SC (08:37)
[2025-03-05] MEDS: PROTONIX 40 MG PO ×2 (08:37→19:49)
[2025-03-05] MEDS: DITROPAN 10 MG PO ×2 (08:37→19:49)
[2025-03-05] MEDS: ASPIR LOW (ENTERIC COATED) 81 MG PO (08:38)
[2025-03-05] MEDS: ORETIC 25 MG PO (08:38)
[2025-03-05] MEDS: NORVASC 5 MG PO (08:38)
[2025-03-05] MEDS: CRESTOR 2.5 MG PO (08:40)
[2025-03-05] MEDS: COZAAR 100 MG PO (08:41)
[2025-03-05] MEDS: MAGNESIUM OXIDE 400 MG PO (08:41)
[2025-03-05] MEDS: FLUSH (NSS) 1 FLUSH IV (08:45)
--- NOTE | 2025-03-05 09:06 | W.PN.PUL3 ---
Today's Communication / Plan
-
Pacer placement today
Stable from our standpoint for discharge when cleared by cards
He wishes to go home CARLIE
We will arrange OP FU in 2-3 weeks
Will sign off at this time, please call with questions
Assessment
-
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
orange while in the ), hypertension, hypocalcemia, NIDDM, left pleural effusion with suspected mesothelioma, bifascicular block, history of TIA, and former tobacco smoker who presents with shortness of breath, lower extremity edema,
wheezing and episode of syncope. Patient had passed out in January and saw his biblical studies professor at [facility] who recommended permanent pacemaker. CXR obtained showing a moderate-sized left pleural effusion. CT chest obtained showing a
moderate loculated left pleural effusion with left lower lobe consolidation likely due to atelectasis with inability to rule out developing pneumonia. Also a large left thyroid nodule. Of note, patient had a thoracentesis on 02/10 and 02/11/2025,
showing exudative fluid with cytopathology suspicious for malignant mesothelioma. Due to this recurrence of pleural fluid, pulmonary service now consulted for additional recommendations.
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
Large left thyroid nodule
Syncope with bifascicular block
Hypokalemia
Severe hepatic fatty infiltration
Conditions present RACE RELATIONS ADVISER
CAD status post triple-vessel CABG in 2012, history of stent placement
History of prostate cancer status post XRT and resection/Prostatectomy
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
HTN
Hypercholesterolemia
NIDDM
Former smoker
Kidney stones
Plan:
Based on patient's current CXR from 03/01, there has been reaccumulation of fluid compared to prior CXR from 02/11/2025
Patient's previous thoracentesis on 02/10/2025 had concerning cytopathology which was positive for malignant mesothelioma (homozygous deletion of CDKN2A/B)
Oncology consulted and pleural biopsy is recommended
s/p underwent thora only today 03/03
No need for biopsy on discussion with IR and Onc 03/03
We discussed management of effusion if needed
Continue aspiration precautions
Given that he was wheezing, continue with scheduled DuoNebs TID (although not currently bronchospastic)
Denies prior history of lung disease, was a former smoker but overall 10 years, quit in the 1970s
Had exposure to agent orange in the past, denies family history of lung disease
Patient is currently on room air, breathing comfortably and saturating 98%
Maintain SpO2 >90-94% with supplemental O2 as needed
Recommend non-urgent thyroid ultrasound to further evaluate left-sided thyroid nodule
Oncology following, defer w/u to them
OP therapy recommended
Defer pacemaker decision to cardiology - EP consult pending
This is likely to happen this admission
- prn nebulized bronchodilators - not currently bronchospastic
- Incentive spirometer encouraged q1hr while awake
- Replete electrolytes with K>4, Mg>2
- Trend H/H and transfuse if needed to keep Hb>7g/dL; keep plt>20k, unless there is concern for bleeding then keep plt>50k
- Maintain euglycemia with goal BG >100 and <180
- DVT ppx
Pulmonary service will continue to follow along.
Data:
CT chest with IV contrast 03/01/2025: Moderate loculated left pleural effusion. Moderate left lower lobe consolidation probably atelectasis. Developing pneumonia not excluded. Large left thyroid nodule. Nonurgent thyroid ultrasound recommended if
not previously evaluated. Severe hepatic fatty infiltration
C 01/03/23: 1: Systemic hypertension
2: Normal left ventricular function with EF 58%
3. Multivessel [place] CAD with widely patent KELLEY-LAD and SVG-OM2-OM 3 bypass grafts. The angiogram is essentially unchanged compared with the August 2019 study. The patient is very well revascularized
4. Continue medical therapy and risk factor modification efforts. Given his symptoms suggesting esophageal inflammation, we will discontinue Plavix and treat with aspirin monotherapy
Total time spent today was 45 minutes for this encounter. Time includes reviewing laboratory test/imaging results, reviewing pertinent medical records, obtaining and reviewing medical history, performing an appropriate exam, ordering medications,
tests and procedures. Time also includes documentation of this encounter, coordinating patient care and communicating with other healthcare professionals. Total time does not include separately billed tests performed on this date of service.
Subjective Data
-
Date of Service:
Date of Service: March 05, 2025
Chief Complaint: Pulmonary Follow Up
Subjective:
No new complaints, stable on RA
Wants to go home post pacer
Objective Data
Data Reviewed
Vital Signs / I&O / Oxygen:
Vital Signs
Temp Pulse Resp BP Pulse Ox
98.4 F 80 16 142/75 95
03/05/25 08:07 03/05/25 08:41 03/05/25 08:07 03/05/25 08:41 03/05/25 08:07
Intake and Output
03/04/25 03/05/25 03/06/25
06:59 06:59 06:59
Intake Total 480 / 480
Balance 480 / 480
SaO2 95
Nasal Cannula flow liters per 7
minute
Physical Exam
General: Respiratory Distress (negative), Comfortable, Chills (negative) and Sweats (negative)
HEENT: Normocephalic and Anicteric
Cardiovascular: S1-S2 and Peripheral Edema (negative)
Respiratory: Wheeze (negative), Crackles (negative), Rhonchi (negative), Non-Labored Respirations, Stridor (negative) and Other (diminished breath sounds on left hemithorax from base to middle lung field)
GI: Soft, Non Distended, Non Tender and Normal Bowel Sounds
Neurology: Awake, Alert, Oriented and Tremors (negative)
Skin: Warm, Dry, Cyanosis (negative) and Jaundice (negative)
Labs/Micro/Reports
Lab Data
03/05/25 03:21
03/05/25 03:21
Microbiology
03/03/25 09:40 Pleural Fluid Body Fluid Culture - Preliminary
No Growth After 18-24 Hours
03/03/25 09:40 Pleural Fluid Gram Stain - Preliminary
03/03/25 09:40 Pleural Fluid Fungal Smear - Final
No yeast or fungal elements seen.
03/03/25 09:40 Pleural Fluid Fungal Culture - Preliminary
Culture in progress.
Positive cultures are reported as soon as detected.
Final report to follow in four to five weeks.
--- NOTE | 2025-03-05 09:21 | PTCARENOTE ---
received patient this am, patient aware that he needs to remain NPO for pacemaker today. monitor shows NSR, VSS. lung barker, fine crackles bilaterally, on RA o2 sat 97%.
[2025-03-05 12:04] LABS: Glucose - Point of Care 140 mg/dl (70-99)
[2025-03-05] MEDS: NOVOLOG FLEXPEN-LOW RESISTANCE SC ×2 (12:11→17:54)
--- NOTE | 2025-03-05 14:00 | W.PN.HOSP.TC ---
Today's Communication/Plan
-
PPM placement today
Assessment / Plan
Assessment / Plan
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
pleural effusion. Patient recently d/c from managed for syncope and pleural effusion with path highly suspicious for malignant mesothelioma cells. Not hypoxic on RA upon admission
General: Well Developed, Well Nourished and No Apparent Distress
HEENT: Normocephalic and Atraumatic
Respiratory: Decreased Breath Sounds
Cardiac: Regular Rhythm and S1/S2
GI: Soft
Genito-urinary: No Costovertebral Tender
Musculoskeletal: No Clubbing, No Cyanosis and No Edema
Neuro: Awake and AO x 3
A/P:
#RBBB
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
#CAD, stable s/p CABG
#Essential HTN
Cardiology consult: eval for PPM
Telemetry
Cont home meds
avoid BB
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
#Hx of prostate CA s/p RT
Apparently patient with exposure to agent orange
Oncology consult: check PSA, consideration for pleural biopsy
Pulm consult
IRAD: repeat thoracentesis
Will get ct per Onc rec
#Hypokalemia
most lieekly 2/2 HCTZ
replete and follow
#DM type 2 with circulatory complications
Accuchecks, Insulin SS, DM diet
HgbA1c 7.8% as of Jan 2025
#GERD
#Urinary urgency
#HLD
#Glaucoma
cont home meds
#LEXY
on CPAP
DVT ppx SCDs
Full code
PPM on placement 03/05
Anticipated Discharge: 24 - 48 hours
Subjective/Interval History
-
Date of Service: March 05, 2025
Seen and examined. No new complaints. No acute overnight events.
Objective Data
-
Labs:
Laboratory Results
03/05/25
03:21
WBC 6.2
Hgb 13.6
Hct 39.1
Plt Count 342
Sodium 138
Potassium 3.6
Chloride 103
Carbon Dioxide 26
BUN 17
Creatinine 1.0
Glucose 154 H
Calcium 9.7
Total Bilirubin 1.0
AST 63 H
ALT 65 H
Alkaline Phosphatase 55
Vital Signs:
Vital Signs
Temp Pulse Resp BP Pulse Ox
98.1 F 78 16 146/81 95
03/05/25 11:33 03/05/25 12:00 03/05/25 11:33 03/05/25 11:35 03/05/25 11:35
I&O
03/04/25 03/05/25 03/06/25
06:59 06:59 06:59
Intake Total 480 / 480
Balance 480 / 480
--- NOTE | 2025-03-05 17:42 | ITS.CL.PACE ---
Delivery Specialist - Pacemaker Implant
Pacemaker Implant
Procedure Report:
PACEMAKER IMPLANT REPORT
Primary Care Provider: Elvia Driscoll [facility]
Referring: Dr Yordan Rodriguez
Date of Procedure: March 05, 2025
Procedure:
Implantation of dual-chamber permanent pacemaker utilizing the left bundle branch for conduction system pacing
Indication/Diagnosis:
Non-reversible symptomatic bradycardia due to sinus node dysfunction as well as AV blaine conduction system disease with right bundle branch block and left anterior fascicular block and clinically with recurrent syncope.
After informed consent was obtained, 'time out' was called and confirmed, the patient was prepped and draped in a sterile fashion. Lidocaine with epi was used for local anesthesia. Central venous access was obtained via subclavian venipuncture. An
incision was made along the left chest and a pre-pectoral pocket was formed. Using a Seldinger technique and peel-away sheaths, the pacing leads were placed under fluoroscopic guidance.
Fluoroscopy was used to determine likely anatomic site for left bundle branch pacing. The Medtronic C315 sheath was used to deliver the Medtronic 3830 Selectsecure pacing lead with the helix exposed just exposed from the sheath tip during continuous
monitoring when pacemapping the septum during gentle clockwise rotation to obtain a paced QRS morphology of a W pattern in lead V1. Once the suspected optimal site was identified, lead deployment was performed with several rapid rotations as paced
QRS morphology was intermittently monitored until a paced QRS complex in lead V1 demonstrated development of an R wave (Qr).
At final position, unipolar pacing impedance dropped by approximately 200 ohms suggesting it had reached the left ventricular subendocardial.
Stable VEgm injury current is present throughout final lead position including at end of case, suggesting there was no perforation through the septum into the LV cavity.
Unipolar pacing impedance is 900 Ohms
Unipolar pacing threshold is stable at 0.75 V @0.4 ms.
Final conduction system paced QRS complex duration is 111 ms
LVAT is 50 ms
There is QRS transition to LVSP / selective LBBP during threshold testing
Right atrial lead was placed at the RAA.
Once testing (see below) showed adequate and stable function, the leads were secured using the suture sleeves. The pocket was liberally irrigated with antibiotic solution. The leads were connected to the generator header and the leads and
generator were placed within the pocket. Fluoroscopy confirmed stable lead position. The pocket was closed in the typical fashion.
Fluoroscopy was used to guide lead placement.
IMPLANTS:
Medtronic [id number], SN: [id number], Left Pectoral
RA: Medtronic 5076-45, SN: [id number], RAA
Left Bundle: Medtronic 3830 , SN:[id number], Interventricular septum at LBB
DEVICE TESTING:
Sensing: RA 1.8 mV, RV 20 mV
Capture: RA 0.75 V@0.4ms, RV 0.5 V@0.4ms
Ohms: RA 550, RV 960
FINAL PROGRAMMING
Gilson Pacing: AAIR+ 60-130 ppm
There may also be a component of cough syncope in which case rate drop hysteresis may end up being useful but I did not program that on today.
COMPLICATIONS:
None
CONCLUSIONS:
1: Successful implant of dual chamber permanent pacemaker utilizing Left Bundle Branch conduction system capture for ventricular resynchronization pacing.
RECOMMENDATIONS:
1. Post-op care (tele, CXR, IV abx)
2. In-Office wound check in 5-7 days
Copy to:
Primary Care Provider: Elvia Driscoll [facility]
Referring: Dr Yordan Rodriguez
--- NOTE | 2025-03-05 17:50 | ITS.CL.IMPLP ---
Metal Casket Maker - Implant Loop
Implant Loop
Procedure Report:
LINQ IMPLANTED MONITOR REMOVAL
Date of Procedure: 03/05/25
Primary Care Provider: Elvia Driscoll [facility]
Referring: Dr Yordan Rodriguez
PROCEDURES:
1. Removal of implanted loop recorder
INDICATION FOR PROCEDURE:
1. Loop Recorder at end of battery longevity
After informed consent was obtained,'time out' was called and confirmed, the patient was prepped and draped in a sterile fashion.
SEDATION: Via the anesthesia department with conscious sedation
Lidocaine with epi was used for local anesthesia. An incision was made along the prior incision and the Linq monitor was carefully dissected from the pocket. The pocket was liberally irrigated with antibiotic solution. The pocket was closed in
the typical fashion.
COMPLICATIONS:
None
CONCLUSIONS:
1. Removal of implanted loop recorder.
Copy to:
Primary Care Provider: Elvia Driscoll [facility]
Referring: Dr Yordan Rodriguez
[2025-03-05 17:51] LABS: Glucose - Point of Care 126 mg/dl (70-99)
--- NOTE | 2025-03-05 17:52 | PTCARENOTE ---
patient returned post pacemaker. LCW Acuseal/pressure dsg. immobilizer. patient is lethargic but easily aroused. very dry mouth. EKG completed as ordered. family at bedside.
[2025-03-05] MEDS: XALATAN OPHTHALMIC SOLUTION 1 DROP BOTH EYES (18:07)
--- NOTE | 2025-03-05 21:19 | PTCARENOTE ---
Rec'd pt at change of shift. Pt AAO*3, VSS, and SR-Stach with BBB on tele monitor. CHELSEA chest wall dressing CDI. Pt denies any pain or discomfort. Chest X-ray complete. Pt verbalizes understanding of L upper extremity restriction. Pt currently
resting with call bear in reach. See MAR and flowchart for full pt care and assessment.
[2025-03-05 22:12] LABS: Glucose - Point of Care 285 mg/dl (70-99)
[2025-03-05] MEDS: ANCEF 5 IV (22:43)
[2025-03-06 03:14] VITALS: PULSE 80
[2025-03-06 03:25] VITALS: BP 112/70
[2025-03-06] MEDS: TYLENOL 650 MG PO (03:46)
[2025-03-06 03:51] VITALS: BMI 25.9
[2025-03-06 04:13] LABS: Hematocrit 36.6 % (39.0-52.0); Hemoglobin 13.1 g/dL (13.0-18.0); Mean Corp Hgb Conc. 35.8 g/dL (33.0-37.0); Mean Corpuscular Volume 86.5 fL (80.0-94.0); Platelet Count 320 10^3/uL (130-400); Red Cell Dist. Width 13.1 % (11.5-14.5)
[2025-03-06 04:31] LABS: Blood Urea Nitrogen 15 mg/dl (9-20); Calcium 9.2 mg/dl (8.4-10.2); Carbon Dioxide 22 mmol/L (22-30); Chloride 105 mmol/L (98-107); Estimated Creatinine Clearance 63 ml/min; Glucose 156 mg/dl (70-99); Magnesium 2.1 mg/dl (1.6-2.3); Potassium 3.4 mmol/L (3.5-5.1); Sodium 136 mmol/L (135-145); eGFR > 60.00
[2025-03-06] MEDS: KCL 20 MEQ PO ×2 (06:08→09:02)
[2025-03-06] MEDS: ANCEF 5 IV (06:08)
[2025-03-06 07:49] VITALS: BP 124/78
[2025-03-06 08:30] LABS: Glucose - Point of Care 174 mg/dl (70-99)
[2025-03-06] MEDS: NOVOLOG FLEXPEN-LOW RESISTANCE 1 UNITS SC ×2 (08:55→13:04)
[2025-03-06] MEDS: ORETIC 25 MG PO (08:56)
[2025-03-06] MEDS: ASPIR LOW (ENTERIC COATED) 81 MG PO (08:56)
[2025-03-06] MEDS: MAGNESIUM OXIDE 400 MG PO (08:56)
[2025-03-06] MEDS: PROTONIX 40 MG PO (08:56)
[2025-03-06] MEDS: NORVASC 5 MG PO (08:56)
[2025-03-06] MEDS: KCL 40 MEQ PO (08:56)
[2025-03-06] MEDS: CRESTOR 2.5 MG PO (09:02)
[2025-03-06 09:17] VITALS: BP 135/82
[2025-03-06] MEDS: DITROPAN 10 MG PO (10:24)
--- NOTE | 2025-03-06 10:45 | W.PN.CARDCBS ---
Addendum entered and electronically signed by Lazaro Carvajal MD 03/06/25 12:05:
I saw and examined the patient.
The Cooling Tower Operator's note was reviewed and I agree with the note.
Comment: Briefly, 75-year-old man past medical history of recurrent pleural effusion secondary to mesothelioma, CAD status post CABG and syncope who presented with dyspnea and lower extremity edema.
Echo here with preserved LV function. proBNP was not significantly elevated. Patient underwent thoracentesis and fluid was exudative; more likely due to underlying mesothelioma rather than heart failure.
Was planned for pacemaker implant next week given his history of syncope and bifascicular block. This was expedited and performed 03/05/2025.
Asymptomatic, resting comfortably out of bed to chair at the time of my evaluation
Appears euvolemic on exam
Telemetry showing normal sinus rhythm
Would continue home cardiac meds
Stable for discharge from my perspective and he should follow-up with his primary drapery installer at [facility]
Original Note:
Today's Communication / Plan
-
EKG stable
CXR without PTX
remains with residual mod L pleural effusion, exudative by light's criteria
s/p PPM
cardiac follow up arranged
ambulate
ok for dc from cardiac standpoint today
Impression / Plan
-
PCP: Dr. Eliva Zuniga ([facility])
Medical Oncology Physician Dr. Rodriguez ([facility])
Assessment:
Hypoxia/shortness of breath
Moderate left pleural effusion
s/p thoracentesis 02/10/25 & 02/11/2025 -cytology concerning for mesothelioma
Status post L thoracentesis 03/03/2025, exudative
h/o mesothelioma
Recurrent syncope/right bundle branch block and left anterior fascicular block
s/p Medtronic DC PPM 03/05/25
CAD
s/p CABG x3 in 2012
s/p RCA PCI 12/2017
catheterization 2022 with patent bypass grafts
h/o TIA
Hypertension
Diabetes
GERD
Hypercholesterolemia
PVD
Sleep apnea on BiPAP
R kidney lesion by CTAP
Echo 01/2024: Ejection fraction 60%, mildly dilated left atrium. Mild concentric LVH. Mild TR.
Normal PET CT stress test March 2022 and February 2024
LHC 01/03/23: Multivessel [place] CAD with widely patent KELLEY-LAD and SVG-OM2-OM 3 bypass grafts. The angiogram is essentially unchanged compared with the August 2019 study. The patient is very well revascularized
Echo 03/04/2025: EF 60 to 65%, trace mitral and tricuspid regurgitation, no pericardial effusion
Plan:
- Presented 03/01/2025 with SOB. Admitted with L pleural effusion. ProBNP 471, no signs of CHF on exam.
- Underwent thoracentesis 03/03/2025. fluid exudative by light's criteria
- Known h/o mesothelioma. Pulmonology and oncology following. Per pulmonary patient no longer needs pleural biopsy. Oncology feels like life expectancy is greater than 1 year.
- Due to history of recurrent syncope of unknown etiology, patient had been scheduled for pacemaker 03/11/25, however was pushed up as admitted and status post Medtronic dual-chamber pacemaker 03/05/2025.
- Chest x-ray with moderate left pleural effusion, residual, with no evidence of pneumothorax
- Echo 03/04 with preserved EF and no evidence of significant valvular disease or pericardial effusion
- in SR on review of tele overnight
- with some chest discomfort around to back this AM, resolved on own. EKG unchanged compared to prior
- ambulate
- Cardiac follow up arranged
- reviewed activity restrictions/limitations
- given etiology of syncope unknown, for now we discussed continuing driving restriction
- ok for DC to home
- of note, we did discuss finding of R kidney lesion with concern for neoplasm. he believes he had this before on imaging, but defer to oncologist to discuss further treatment if indicated
- d/w nursing
HPI: Mark has a history of mesothelioma, RCA stent in December 2017, three-vessel CABG with catheterization in 2022 with patent bypass grafts, PVD, hypertension, TIA, right bundle branch block and left anterior fascicular block with recurrent
syncope, diabetes. He had been seen by his drapery installer in the past week and was arranged for pacemaker implant at [place] to be done on March 11, 2025. He presents with shortness of breath and wheezing. He notes that he has had several
episodes of syncope without warning. He was to have a pacemaker placed as an outpatient on March 11, 2025.
Progress Note - Medical Oncology Physician
Subjective
Date of Service: March 06, 2025
reported some L sided chest pain which wrapped around to back. resolved on own. pain free at present
Objective
Labs:
03/06/25 03:33
03/06/25 03:33
Labs
Hgb 13.1 g/dL (13.0-18.0) 03/06/25 03:33
Hct 36.6 % (39.0-52.0) L 03/06/25 03:33
Plt Count 320 10^3/uL (130-400) 03/06/25 03:33
PT 15.5 Sec (11.4-14.6) H 03/01/25 11:50
INR 1.22 03/01/25 11:50
APTT 77.6 Sec (23.4-35.0) H 03/01/25 11:50
Sodium 136 mmol/L (135-145) 03/06/25 03:33
Potassium 3.4 mmol/L (3.5-5.1) L 03/06/25 03:33
BUN 15 mg/dl (9-20) 03/06/25 03:33
Creatinine 1.0 mg/dL (0.7-1.3) 03/06/25 03:33
Glucose 156 mg/dl (70-99) H 03/06/25 03:33
Vital Signs and I&O:
Vital Signs
Temp Pulse Resp BP Pulse Ox
98.2 F 80 20 118/76 97
03/06/25 07:51 03/06/25 03:24 03/06/25 07:51 03/05/25 19:22 03/06/25 07:51
Vital Signs
Temp Pulse Resp BP Pulse Ox
98.2 F 80 20 118/76 97
03/06/25 07:51 03/06/25 03:24 03/06/25 07:51 03/05/25 19:22 03/06/25 07:51
Intake & Output
03/04/25 03/05/25 03/06/25 03/07/25
07:59 07:59 07:59 07:59
Intake Total 480 / 480 960 / 960
Output Total 700 / 700
Balance 480 / 480 260 / 260
Physical Exam
Physical Exam
GEN: No distress, awake, alert, oriented x3. sitting on couch
HEENT: supple, anicteric, mmm, eomi
LUNGS: Decreased RLB, no wheezes/rales
CV: Reg, S1/S2, no murmur
ABD: soft, BS+, NT/ND
EXT: No cyanosis, clubbing, edema
NEURO: Gross non-focal
SKIN: Warm, pink, dry. No rash. L chest site with aquacel dressing c/d/i
[2025-03-06] MEDS: COZAAR 100 MG PO (10:48)
--- NOTE | 2025-03-06 11:22 | W.DCSUMMARY ---
Discharge Summary
Discharge Data
Date of Admission: 03/01/25
Date of Discharge: 03/06/25
-
Pending Results: No
Hospital Course
75 male history of CAD s/p triple-vessel CABG, PCI, prostates CA s/p XRT and resection, hypertension, hypercholesterolemia, NIDDM
Presented for PPM evaluation from cardiology office with recent syncope fatigue weakness shortness of breath and lower extremity edema. Chest x-ray demonstrated left pleural effusion IR was consulted for thoracentesis. Pathology was reviewed from
previous thoracentesis from prior admission demonstrating exudative fluid and cells consistent with mesothelioma therefore with pulmonary and oncology was consulted. Determined that 1 year survival expectancy was reassuring due to lack of
metastatic mesothelioma on scan. Therefore, cardiology proceeded with placement of PPM.
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 Need to follow-up with cardiology for pacemaker checks.
Additionally, should be noted abdominal CT did demonstrate findings concerning for renal cell carcinoma will need continued outpatient oncology follow-up for this as well along with urologic follow-up.
CXR
IMPRESSION:
Moderate left pleural effusion. Probably loculated. Underlying pneumonia not excluded. Mildly progressed.
Chest CT
IMPRESSION:
Moderate loculated left pleural effusion.
Moderate left lower lobe consolidation probably atelectasis. Developing pneumonia not excluded.
Large left thyroid nodule. Nonurgent thyroid ultrasound recommended if not previously evaluated.
Severe hepatic fatty infiltration
If the patient has emphysema, patient should be assessed for an annual low dose lung cancer CT program, as pulmonary emphysema is an independent risk factor for lung cancer.
CXR
IMPRESSION:
1. No radiographic evidence for pneumothorax following left thoracentesis.
2. Interval decrease in size of a moderate left pleural effusion.
3. Moderate subpleural airspace consolidation remaining in the left lower lobe.
4. Previous CABG surgery.
Abdominal CT
IMPRESSION:
No evidence of metastatic disease within the abdomen or pelvis. There is a partially visualized left-sided pleural effusion with adjacent atelectasis. There is associated mild pleural thickening with nodularity along the right hemidiaphragm
consistent with known mesothelioma.
There are mildly prominent mesenteric and retroperitoneal lymph nodes which are stable from prior examination in 2013 and likely benign.
There is a 1.8 cm mixed cystic and solid lesion along the posterior aspect of the superior pole the right kidney which likely represents a neoplasm and is highly concerning for renal cell carcinoma.
Cholelithiasis.
Diffuse hepatic steatosis.
CXR
IMPRESSION:
Left chest wall pacemaker with leads projecting over the right atrium and right ventricle. No pneumothorax.
Unchanged moderate left pleural effusion.
2d echo
SUMMARY
1. Normal left ventricular size and systolic function without regional wall motion abnormalities. Mild left ventricular hypertrophy. Estimated left ventricular ejection fraction is 60 to 65% by visual estimation.
2. Normal right ventricular size and systolic function.
3. Trace mitral and tricuspid regurgitation without evidence of pulmonary hypertension.
4. No pericardial effusion.
5. Compared to prior echocardiogram from 2017, no significant changes.
Seen and examined on the day of discharge which was 03/06/2025. No new complaint acute overnight events.
General: Well Developed, Well Nourished and No Apparent Distress
HEENT: Normocephalic and Atraumatic
Respiratory: Decreased Breath Sounds
Cardiac: Regular Rhythm and S1/S2
GI: Soft
Genito-urinary: No Costovertebral Tender
Musculoskeletal: No Clubbing, No Cyanosis and No Edema
Neuro: Awake and AO x 3
Left chest wall incision is covered in bandage tightly
Discharge Plan
-
Patient Disposition: Home (Routine Discharge)
Discharge Diagnosis/Procedures: Pacemaker implant and linq removal (03/05)
Activity: No strenuous activity
Additional Activity: Minimal use of left arm. Avoid overhead exercises. Avoid strenuous activity. Can resume once cleared by cardiology outpatient
Driving Restrictions: not until discussed with medical staff manager
Bathing Restrictions: OK to Shower
Others Tests: US thyroid to evaluate nodule with family doctor
Activity Restrictions/Additional Instructions:
Presented for PPM evaluation from cardiology office with recent syncope fatigue weakness shortness of breath and lower extremity edema. Chest x-ray demonstrated left pleural effusion IR was consulted for thoracentesis. Pathology was reviewed from
previous thoracentesis from prior admission demonstrating exudative fluid and cells consistent with mesothelioma therefore with pulmonary and oncology was consulted. Determined that 1 year survival expectancy was reassuring due to lack of
metastatic mesothelioma on scan. Therefore, cardiology proceeded with placement of PPM.
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 Need to follow-up with cardiology for pacemaker checks.
Additionally, should be noted abdominal CT did demonstrate findings concerning for renal cell carcinoma will need continued outpatient oncology follow-up for this as well along with urologic follow-up.
CXR
IMPRESSION:
Moderate left pleural effusion. Probably loculated. Underlying pneumonia not excluded. Mildly progressed.
Chest CT
IMPRESSION:
Moderate loculated left pleural effusion.
Moderate left lower lobe consolidation probably atelectasis. Developing pneumonia not excluded.
Large left thyroid nodule. Nonurgent thyroid ultrasound recommended if not previously evaluated.
Severe hepatic fatty infiltration
If the patient has emphysema, patient should be assessed for an annual low dose lung cancer CT program, as pulmonary emphysema is an independent risk factor for lung cancer.
CXR
IMPRESSION:
1. No radiographic evidence for pneumothorax following left thoracentesis.
2. Interval decrease in size of a moderate left pleural effusion.
3. Moderate subpleural airspace consolidation remaining in the left lower lobe.
4. Previous CABG surgery.
Abdominal CT
IMPRESSION:
No evidence of metastatic disease within the abdomen or pelvis. There is a partially visualized left-sided pleural effusion with adjacent atelectasis. There is associated mild pleural thickening with nodularity along the right hemidiaphragm
consistent with known mesothelioma.
There are mildly prominent mesenteric and retroperitoneal lymph nodes which are stable from prior examination in 2013 and likely benign.
There is a 1.8 cm mixed cystic and solid lesion along the posterior aspect of the superior pole the right kidney which likely represents a neoplasm and is highly concerning for renal cell carcinoma.
Cholelithiasis.
Diffuse hepatic steatosis.
CXR
IMPRESSION:
Left chest wall pacemaker with leads projecting over the right atrium and right ventricle. No pneumothorax.
Unchanged moderate left pleural effusion.
2d echo
SUMMARY
1. Normal left ventricular size and systolic function without regional wall motion abnormalities. Mild left ventricular hypertrophy. Estimated left ventricular ejection fraction is 60 to 65% by visual estimation.
2. Normal right ventricular size and systolic function.
3. Trace mitral and tricuspid regurgitation without evidence of pulmonary hypertension.
4. No pericardial effusion.
5. Compared to prior echocardiogram from 2017, no significant changes.
Stand Alone Forms: [facility] - Implanted Device
Referrals:
[facility] [Provider Group] - 03/12/25 9:00 am
Referral Note: Incision check appointment
Daxa Nobles MD [Active, Oncology] - in two weeks
[facility] [place] CRNP [Non-Admitting Privileges, Pulmonary Medicine]
Referral Note: reschedule 03/04 appt, can reschedule in 2-3 weeks w/ PFT
Elvia Zuniga DO [Family Provider, Family Practice] - in less than 1 week
Referral Note: US thyroid to evaluate nodule
Prescriptions:
New
amlodipine 10 mg Tablet
5 mg PO DAILY Qty: 30 0RF
Continued
aspirin 81 MG tablet,delayed release (DR/EC)
81 mg PO DAILY Qty: 1 0RF
nitroglycerin 0.4 MG tablet, sublingual
0.4 mg sublingual [id number] PRN (Reason: chest pain) Qty: 0 0RF
travoprost 0.004 % Drops
1 drp BOTH EYES QPM
losartan 100 mg Tablet
100 mg PO DAILY
oxybutynin chloride 10 mg Tablet Extended Release 24hr
10 mg PO BID
omeprazole 40 mg Capsule,Delayed Release(Dr/Ec)
40 mg PO BID
hydrochlorothiazide 25 mg Tablet
25 mg PO DAILY
rosuvastatin 5 mg Tablet
2.5 mg PO DAILY
metformin 500 mg Tablet
500 mg PO BID
coenzyme Q10 10 mg Capsule
10 mg PO DAILY
phenylephrine-guaifenesin 2.5-100 mg/5 mL Liquid
20 ml PO DAILYPRN PRN (Reason: cough)
omega [id number] oil [Fish Oil] 1,000 (120-180) mg Capsule
1 cap PO DAILY
potassium chloride 20 mEq Tablet Extended Release
40 meq PO DAILY
magnesium oxide 400 mg magnesium Tablet
400 mg PO DAILY
Prevagen
1 cap PO DAILY
Discontinued
amlodipine 10 mg Tablet
5 mg PO HS
Discharge Orders:
Discharge Patient (As Directed); Ordered 03/06/25
Ordered By: Mac Reid
Care Plan Goals
Care Plan Goals:
Problem: Readiness for enhanced knowledge related to diagnosis and treatment plan
Goal: Understand your diagnosis and treatment plan needs, including medications if applicable.
Instructions: Know your diagnosis, underlying causes and treatment plan options, including medications if applicable. Consult with your health care team to learn about your diagnosis and treatment plan, including medications if applicable.
Discharge Date and Time
Print Language: AMHARIC
[2025-03-06 11:58] VITALS: BP 130/72
[2025-03-06 12:01] LABS: Glucose - Point of Care 196 mg/dl (70-99)
[2025-03-06 15:24] VITALS: BP 128/72
--- NOTE | 2025-03-06 17:45 | SUR.OPER ---
Pt received this am with no c/o of any pain or sob. Room air sat 97%. OOB ad janes in the room and ambulating in the hallway without issues. Pt called nurse at 0925 c/o of middle back discomfort radiating to his chest. Pt stated discomfort was an
10/27. No change in bp, heart rhythm or o2 sat. Ecg completed with no changes. Dennise Ervin PAC notified. After the ECG completed, pt stated the pain had resolved. Pt later discharged to home with his . Discharge instructions given and reviewed
with good understanding and all questions answered.
== END 2025-03-06 16:49 | disposition home or self-care (01) | DRG 243 ==
LOC: IVU 14:39
PROVIDERS: Clinical Nurse Specialist Family Health; Internal Medicine Cardiovascular Disease; Nurse Practitioner; Radiology Vascular & Interventional Radiology; ADMITTING PHYSICIAN Student in an Organized Health Care Education/Training Program; ATTENDING PHYSICIAN Hospitalist; CONSULT PHYSICIAN Internal Medicine Cardiovascular Disease; CONSULT PHYSICIAN Internal Medicine Critical Care Medicine; EMERGENCY PHYSICIAN Emergency Medicine; FAMILY PHYSICIAN Family Medicine; OTHER PHYSICIAN Internal Medicine Hematology & Oncology
PROC: 5A09357 Assistance with Respiratory Ventilation, Less than 24 Consecutive Hours, Continuous Positive Airway Pressure (ICD-10-PCS; 2025-03-02)
PROC: 0W9B3ZZ Drainage of Left Pleural Cavity, Percutaneous Approach (ICD-10-PCS; 2025-03-03)
PROC: 02H63JZ Insertion of Pacemaker Lead into Right Atrium, Percutaneous Approach (ICD-10-PCS; 2025-03-05)
PROC: 0JH606Z Insertion of Pacemaker, Dual Chamber into Chest Subcutaneous Tissue and Fascia, Open Approach (ICD-10-PCS; 2025-03-05)
PROC: 02HL3JZ Insertion of Pacemaker Lead into Left Ventricle, Percutaneous Approach (ICD-10-PCS; 2025-03-05)
PROC: 0JPT02Z Removal of Monitoring Device from Trunk Subcutaneous Tissue and Fascia, Open Approach (ICD-10-PCS; 2025-03-05)
DX: I45.2 Bifascicular block (principal); C45.0 Mesothelioma of pleura; C64.1 Malignant neoplasm of right kidney, except renal pelvis; J98.11 Atelectasis; J91.0 Malignant pleural effusion; I49.5 Sick sinus syndrome; I47.29 Other ventricular tachycardia; E04.1 Nontoxic single thyroid nodule; E11.51 Type 2 diabetes mellitus with diabetic peripheral angiopathy without gangrene; G47.33 Obstructive sleep apnea (adult) (pediatric); I10 Essential (primary) hypertension; I25.10 Atherosclerotic heart disease of native coronary artery without angina pectoris; E78.00 Pure hypercholesterolemia, unspecified; E87.6 Hypokalemia; E83.42 Hypomagnesemia; K21.9 Gastro-esophageal reflux disease without esophagitis; R09.02 Hypoxemia; E83.51 Hypocalcemia; K76.0 Fatty (change of) liver, not elsewhere classified; Z77.39 Contact with and (suspected) exposure to other war theater; Z85.46 Personal history of malignant neoplasm of prostate; Z11.52 Encounter for screening for COVID-19; Z87.442 Personal history of urinary calculi; Z92.3 Personal history of irradiation; Z95.5 Presence of coronary angioplasty implant and graft; Z95.1 Presence of aortocoronary bypass graft; Z86.73 Personal history of transient ischemic attack (TIA), and cerebral infarction without residual deficits; Z87.891 Personal history of nicotine dependence; Z79.82 Long term (current) use of aspirin; Z79.84 Long term (current) use of oral hypoglycemic drugs
CPT/HCPCS: 32555; 33208; 33286; 71045; 71046; 71260; 74177; 80048; 80053; 82150; 82945; 82962; 83615; 83735; 83880; 83986; 84153; 84157; 84443; 84478; 85025; 85027; 85610; 85730; 87015; 87070; 87102; 87116; 87205; 87206; 87502; 87811; 89051; 93005; 93306; 94640; 94660; 99285; C1769; C1785; C1887; C1898; Q9967